=== PATIENT | female | born 1955 | race Caucasian/White ===

== ENCOUNTER 2022-09-22 13:05 | Outpatient (RCR) | payer MEDICARE, MEDICAID, OTHER, SELFPAY ==
--- NOTE | ~2022-09-22 | XR_ITS ---
EXAMINATION: XR ELBOW, LEFT CLINICAL INFORMATION: Nonhealing wound COMPARISON: None TECHNIQUE: AP, lateral, and oblique views of the left elbow. FINDINGS: Soft tissue swelling about the elbow joint. No definite fracture or malalignment.. There is possible soft tissue gas within the joint. XR/XR elbow LT min 3V IMPRESSION: Soft tissue swelling about the elbow joint. Possible soft tissue gas within the joint. Recommend further evaluation with CT or MR. No definite fracture.
== END 2023-01-05 16:00 | disposition home or self-care (01) ==
LOC: HO.WCC 13:05
PROVIDERS: PCP Family Medicine; Referring Provider Orthopaedic Surgery; Visit Provider Physician Assistant
DX: E11.622 Type 2 diabetes mellitus with other skin ulcer (principal); L89.029 Pressure ulcer of left elbow, unspecified stage; M35.3 Polymyalgia rheumatica; N28.9 Disorder of kidney and ureter, unspecified; I11.0 Hypertensive heart disease with heart failure; I50.9 Heart failure, unspecified; F17.210 Nicotine dependence, cigarettes, uncomplicated
CPT/HCPCS: 11042; 73080; 87070; 87073; 87205; 97597; 99212; 99213

== ENCOUNTER 2022-11-04 14:21 | Outpatient (REF) | payer MEDICARE, MEDICAID, SELFPAY | END 2022-11-04 14:22 | disposition home or self-care (01) | LOC: HO.MRI 14:21 | PROVIDERS: PCP Family Medicine; Visit Provider Physician Assistant | DX: Z13.89 Encounter for screening for other disorder (principal) ==

== ENCOUNTER → 2022-12-17 13:51 | Outpatient (BNVA) | payer MEDICARE, MEDICAID, SELFPAY | PROVIDERS: PCP Family Medicine; Visit Provider Internal Medicine | DX: M86.9 Osteomyelitis, unspecified (principal) | CPT/HCPCS: 99202 ==

== ENCOUNTER 2023-01-08 12:13 | Outpatient (REF) | payer MEDICARE, SELFPAY ==
[2023-01-08 13:25] LABS: Estimated Glomerular Filt Rate 33
== END 2023-01-08 12:14 | disposition home or self-care (01) ==
LOC: HO.LAB 12:13
PROVIDERS: PCP Family Medicine; Visit Provider Internal Medicine
DX: M86.9 Osteomyelitis, unspecified (principal)
CPT/HCPCS: 36415; 82565

== ENCOUNTER 2023-01-27 06:51 | Day surgery (SDC) | payer MEDICARE, SELFPAY ==
--- NOTE | ~2023-01-27 | IR_ITS ---
PROCEDURE: IR INSERTION OF TUNNEL CATHETER CLINICAL INFORMATION: Osteomyelitis with need for long-term antibiotics. COMPARISON: None available. TECHNIQUE: All elements of maximal sterile barrier technique followed including use of cap, mask, sterile gown, sterile gloves, a sterile full body drape and hand hygiene. Also followed skin preparation with 2% chlorhexidine for cutaneous antisepsis, and sterile ultrasound preparation with sterile gel and probe cover when applicable. Medications for conscious sedation: The patient received intravenous conscious sedation under my direct supervision. A registered nurse monitored the patient and the patient's vital signs throughout the procedure. The total sedation was 15 minutes utilizing Versed and fentanyl with good effect. FINDINGS: Patient was placed supine on the fluoroscopy table in the right neck/chest was sterilely prepped and draped. Ultrasound of the right neck demonstrates a patent and compressible right internal jugular vein. Following administration of 1% lidocaine for local anesthesia, the right internal jugular vein was accessed with a 21-gauge micropuncture needle under continuous ultrasound guidance, permanent recordings. The needle was exchanged for a peel-away sheath over a 0.018 guidewire. A 5 Albanian Borja catheter was then tunneled from a right infraclavicular site to the right IJ access site. The catheter was cut to length (25 cm) and was inserted through the peel-away sheath. A fluoroscopic image was saved demonstrating the tip of the catheter to be at the cavoatrial junction. The catheter flushed and aspirated easily and was terminally flushed with heparin. The IJ puncture site was closed with skin glue. A sterile dressing was applied. Patient tolerated procedure well with no immediate complications. IR/IR cvc insert central tunnel IMPRESSION: Placement of 5 Albanian single lumen Borja catheter via a right internal jugular venous approach. Catheter tip is at the cavoatrial junction. Catheter is ready for immediate use.
--- NOTE | ~2023-01-27 | IR_ITS ---
PROCEDURE: IR INSERTION OF TUNNEL CATHETER CLINICAL INFORMATION: Osteomyelitis with need for long-term antibiotics. COMPARISON: None available. TECHNIQUE: All elements of maximal sterile barrier technique followed including use of cap, mask, sterile gown, sterile gloves, a sterile full body drape and hand hygiene. Also followed skin preparation with 2% chlorhexidine for cutaneous antisepsis, and sterile ultrasound preparation with sterile gel and probe cover when applicable. Medications for conscious sedation: The patient received intravenous conscious sedation under my direct supervision. A registered nurse monitored the patient and the patient's vital signs throughout the procedure. The total sedation was 15 minutes utilizing Versed and fentanyl with good effect. FINDINGS: Patient was placed supine on the fluoroscopy table in the right neck/chest was sterilely prepped and draped. Ultrasound of the right neck demonstrates a patent and compressible right internal jugular vein. Following administration of 1% lidocaine for local anesthesia, the right internal jugular vein was accessed with a 21-gauge micropuncture needle under continuous ultrasound guidance, permanent recordings. The needle was exchanged for a peel-away sheath over a 0.018 guidewire. A 5 Turkmen Borja catheter was then tunneled from a right infraclavicular site to the right IJ access site. The catheter was cut to length (25 cm) and was inserted through the peel-away sheath. A fluoroscopic image was saved demonstrating the tip of the catheter to be at the cavoatrial junction. The catheter flushed and aspirated easily and was terminally flushed with heparin. The IJ puncture site was closed with skin glue. A sterile dressing was applied. Patient tolerated procedure well with no immediate complications. IR/IR us guide venous access IMPRESSION: Placement of 5 Turkmen single lumen Borja catheter via a right internal jugular venous approach. Catheter tip is at the cavoatrial junction. Catheter is ready for immediate use.
[2023-01-27 07:20] LABS: Glucose, Whole Blood 187 mg/dL (60-115)
[2023-01-27 07:25] VITALS: BMI 28.5
[2023-01-27 07:36] LABS: MANUAL DIFF FLAG NO
[2023-01-27 07:39] LABS: Basophils Absolute Auto 0.1 X10*3/uL (0.0-0.2); Basophils Percent Auto 0.3 % (0-2); Eosinophils Percent Auto 0.1 % (0-4); Hematocrit 48.8 % (37.0-47.0); Hemoglobin 16.6 g/dl (12.0-16.0); Imm Gran Abs Auto 0.31 X10*3/uL (0.00-0.03); Imm Gran Pct Auto 1.5 % (0.0-0.4); Lymphocytes Absolute Auto 2.6 X10*3/uL (1.2-4.9); Lymphocytes Percent Auto 12.7 % (20-40); Mean Corpuscular Hemoglobin 28.2 pg (27.0-33.0); Mean Corpuscular Volume 82.9 fL (80.0-98.0); Mean Platelet Volume 9.2 fL (9.4-12.3); Monocytes Absolute Auto 1.4 X10*3/uL (0.1-1.2); Monocytes Percent Auto 6.8 % (2-11); Neutrophils Percent Auto 78.6 % (45-73); Platelet Count 308 X10*3/uL (160-400); Red Blood Count 5.89 X10*6/uL (4.20-5.50); Red Cell Distribution Width 14.8 % (11.0-16.0); White Blood Count 20.3 X10*3/uL (4.8-10.8)
[2023-01-27 07:44] LABS: INTERNATIONAL NORM RATIO 0.9 (0.9-1.1)
[2023-01-27 07:47] LABS: Partial Thromboplastin Time 26.6 SEC (26.0-36.4)
[2023-01-27 07:56] LABS: Anion Gap 18 (12-20); Blood Urea Nitrogen 33 mg/dL (9-16); Carbon Dioxide 27 mmol/L (22-29); Chloride 89 mmol/L (96-108); Creatinine Clr Calc Pharmacy 30.3; Estimated Glomerular Filt Rate 32; Sodium 131 mmol/L (135-145)
[2023-01-27 10:10] VITALS: BP 159/93; PULSE 78; RESP 16; TEMP 36.8; O2SAT 91
[2023-01-27 10:25] VITALS: BP 157/103; PULSE 79; RESP 18; O2SAT 90
[2023-01-27 10:40] VITALS: BP 189/112; PULSE 80; RESP 18; O2SAT 92
[2023-01-27 10:55] VITALS: BP 181/94; PULSE 86; RESP 18; O2SAT 93
[2023-01-27 11:10] VITALS: BP 169/93; PULSE 82; RESP 18; TEMP 37; O2SAT 93
[2023-01-27 11:25] VITALS: BP 170/83; PULSE 82; RESP 18; O2SAT 94
== END 2023-01-27 11:20 | disposition home or self-care (01) ==
PROVIDERS: Radiology Diagnostic Radiology; PCP Family Medicine; Visit Provider Radiology Diagnostic Radiology
DX: M86.9 Osteomyelitis, unspecified (principal)
CPT/HCPCS: 36415; 36558; 76937; 80051; 82565; 82947; 84520; 85025; 85610; 85730; 99152; C1751; C1769; J0690; J1335; J1642; J2250; J2405; J3010; Q9967

== ENCOUNTER → 2023-01-27 08:49 | Outpatient (BNV) | payer MEDICARE, SELFPAY | PROVIDERS: PCP Family Medicine; Visit Provider Student in an Organized Health Care Education/Training Program | DX: M86.9 Osteomyelitis, unspecified (principal) | CPT/HCPCS: 36558; 76937 ==

== ENCOUNTER 2023-01-27 11:23 | Outpatient (REF) | payer MEDICARE, SELFPAY | END 2023-01-27 11:24 | disposition home or self-care (01) | LOC: HO.MDS 11:23 | PROVIDERS: Visit Provider Internal Medicine | DX: M86.9 Osteomyelitis, unspecified (principal) | CPT/HCPCS: 96365; J1335 ==

== ENCOUNTER 2023-01-28 14:51 | Outpatient (REF) | payer MEDICARE, OTHER, SELFPAY | END 2023-01-28 14:52 | disposition home or self-care (01) | LOC: HO.MDS 14:51 | PROVIDERS: PCP Family Medicine; Visit Provider Internal Medicine | DX: M86.9 Osteomyelitis, unspecified (principal) | CPT/HCPCS: 96365; J1335 ==

== ENCOUNTER 2023-01-29 11:06 | Outpatient (RCR) | payer MEDICARE, OTHER, SELFPAY | END 2023-03-02 16:00 | disposition home or self-care (01) | LOC: HO.WCC 11:06 | PROVIDERS: PCP Family Medicine; Visit Provider Surgery | DX: L98.492 Non-pressure chronic ulcer of skin of other sites with fat layer exposed (principal); S21.112A Laceration without foreign body of left front wall of thorax without penetration into thoracic cavity, initial encounter; M86.032 Acute hematogenous osteomyelitis, left radius and ulna; M35.3 Polymyalgia rheumatica; Z79.4 Long term (current) use of insulin; Z79.85 Long-term (current) use of injectable non-insulin antidiabetic drugs; Z79.82 Long term (current) use of aspirin; Z79.891 Long term (current) use of opiate analgesic; Z79.2 Long term (current) use of antibiotics; Z79.52 Long term (current) use of systemic steroids | CPT/HCPCS: 97597 ==

== ENCOUNTER 2023-01-29 12:04 | Outpatient (REF) | payer MEDICARE, MEDICAID, SELFPAY | END 2023-01-29 12:05 | disposition home or self-care (01) | LOC: HO.MDS 12:04 | PROVIDERS: Visit Provider Internal Medicine | DX: M86.9 Osteomyelitis, unspecified (principal) | CPT/HCPCS: 96365; J1335 ==

== ENCOUNTER 2023-01-30 10:27 | Inpatient (IN) | payer MEDICARE, OTHER, SELFPAY ==
--- NOTE | ~2023-01-30 | XR_ITS ---
EXAMINATION: XR ELBOW, LEFT CLINICAL INFORMATION: Left elbow pain following trauma. COMPARISON: 09/25/2022 TECHNIQUE: AP, lateral, and oblique views of the left elbow. FINDINGS: The bones are osteopenic. Alignment is anatomic. Joint spaces are maintained. No displaced fracture seen. Small joint effusion. XR/XR elbow LT min 3V IMPRESSION: Small joint effusion.
--- NOTE | ~2023-01-30 | XR_ITS ---
EXAMINATION: XR CHEST CLINICAL INFORMATION: Weakness. Leukocytosis. COMPARISON: None available. TECHNIQUE: Frontal view of the chest was obtained. FINDINGS: Low lung volumes. No focal consolidation. No pleural effusion. Cardiac silhouette is within normal. Right central venous catheter tip projects near the cavoatrial junction. Surgical clips project over the right upper quadrant. XR/XR chest 1V IMPRESSION: No acute abnormality.
--- NOTE | ~2023-01-30 | IR_ITS ---
EXAMINATION: XA IR CVC removal tunneled catheter without port or pump CLINICAL INFORMATION: Central line and IV antibiotics no longer needed COMPARISON: None. TECHNIQUE/FINDINGS: The existing 5 [place] right internal jugular Proline catheter was removed. Manual pressure was held at the skin exit site and hemostasis was achieved. Dry sterile dressing was applied. No imaging obtained. No specimen was sent. IR/IR cvc remov tunnel wo prt/coding clerk IMPRESSION: Right internal jugular 5 [place] Proline catheter removal.
[2023-01-30 10:31] VITALS: BP 152/82; PULSE 56; RESP 22; TEMP 36.7; O2SAT 97; BMI 28.0
--- NOTE | 2023-01-30 12:23 | ED_ITS ---
HPI - Weakness General Chief complaint: Weakness Stated complaint: weakness Time Seen by Provider: 01/30/23 12:23 Source: patient, family and old records reviewed Mode of arrival: ambulatory Limitations: no limitations History of Present Illness HPI Narrative: 67 yo female with history of left olecranon osteomyelitis started on IV ertapenem 01/26, HTN, DM, PMR on chronic prednisone who presents to the ER for evaluation of worsening generalized weakness this week. Her and her report that since she started IV antibiotics this week she has been getting more and more weak. She can no longer walk and he needs to pick her up and put her in the wheelchair to get to the infusion appointment today. She also reports all over body aches and pains. She has been having LUQ pain but no N/V/D. She has had decreased PO intake as well. She reports SOB as well. MD Complaint: generalized weakness Onset (ago): week(s) Duration: constant and progressively worsening Location: generalized Migration: none Severity: severe Relieving factors: none Exacerbating factors: none Associated symptoms: loss of appetite, myalgias and shortness of breath Related Data Home Medications Medication Instructions Recorded Confirmed carvedilol 25 mg tablet 25 mg PO BID 12/17/22 cephalexin 250 mg capsule 250 mg PO TID 12/17/22 gabapentin 100 mg capsule 100 mg PO DAILY 12/17/22 insulin NPH isoph U-100 human 100 25 unit subcut BID 12/17/22 unit/mL (3 mL) subcutaneous pen (Humulin N NPH U-100 Insulin KwikPen) insulin degludec 100 unit/mL (3 100 unit subcut DAILY 12/17/22 mL) subcutaneous pen (Tresiba FlexTouch U-100 insulin) insulin lispro 100 unit/mL 1 sliding scale dose subcut 12/17/22 subcutaneous cartridge (Humalog USEASDIRECTD U-100 Insulin) liraglutide 0.6 mg/0.1 mL (18 mg/3 1.2 mg subcut DAILY 12/17/22 mL) subcutaneous pen injector (Victoza 3-Delmer) magnesium hydroxide 400 mg/5 mL 400 mg PO DAILY PRN 12/17/22 oral suspension (Dulcolax (magnesium hydroxide)) potassium citrate 10 mEq (1,080 10 meq PO TID 12/17/22 mg) tablet,extended release spironolactone 25 mg tablet 25 mg PO DAILY 12/17/22 aspirin 81 mg tablet,delayed 81 mg PO DAILY 01/27/23 release zolpidem 5 mg tablet 5 mg PO BEDTIME PRN Insomnia 01/27/23 Previous Rx's Medication Instructions Recorded ertapenem 1 gram solution for 1 g IV Q24H 42 days #42 ea 12/31/22 injection Allergies Allergy/AdvReac Type Severity Reaction Status Date / Time lisinopril Allergy Severe Cough Verified 01/27/23 07:40 morphine AdvReac Severe Hallucinati Verified 01/27/23 07:41 ons Review of Systems Review of Systems: Yes all other systems are reviewed and are negative [facility] Past Medical History Medical History Artery occlusion Cataract Diabetes Kidney disease Osteomyelitis Polymazia Smoker Surgical History (Updated 01/27/23 @ 07:[address] Rizo RN) H/O section H/O: hysterectomy History of total knee replacement History of urostomy Hx of cholecystectomy Social History Social History Patient Tobacco Use Status: Current everyday Tobacco user Tobacco use type: Cigarette Cigarettes Per Day: 5 Smoked in Last 30 Days: Yes Use of substances other than those prescribed or required for medical reasons: No Advance Directives: Yes Advance Directives Information Provided: Yes Advance Directives on File: No Physical Exam Vital Signs: Vital Signs: Last Vital Signs Temp 97.8 F 01/30/23 15:16 Pulse 78 01/30/23 15:16 Resp 20 01/30/23 15:16 BP 196/88 H 01/30/23 15:16 Pulse Ox 95 01/30/23 15:16 O2 Del Method Room Air 01/30/23 15:16 BMI result Body Mass Index 28.0 Appearance: Alert. Oriented X3. No acute distress. Head: normocephalic, atraumatic. Eyes: Pupils equal, round and reactive to light. ENT: Pharynx normal. No tonsillar swelling or exudate. Neck: Normal inspection. Neck supple. CVS: Normal heart rate and rhythm. Pulses normal. Respiratory: No respiratory distress. Breath sounds normal. Abdomen: Soft with mild LUQ tenderness without rebound or guarding. +BS x4 Skin: Skin warm and dry. Normal skin color. Normal skin turgor. No rashes. Extremities: No lower extremity edema. Left elbow with a superficial skin tear, mild erythema. no significant swelling or tenderness. normal ROM. no drainage Neuro/psych: Oriented X 3. Significant weakness LE, barely able to lift the le gs off of the bed but able to fully extend against gravity when sitting on the edge of the bed. Absent DTRs in the LE. No sensory deficit. Equal and symmetrical strength in the UE. CN II-XII intact. Normal speech and cognition. Gait not tested due to weakness Medications Administered Discontinued Medications Generic Name Dose Route Start Last Admin Trade Name Freq PRN Reason Stop Dose Admin Ertapenem 1 gm/ Sodium 50 mls @ 100 mls/hr 01/30/23 14:15 01/30/23 15:42 Chloride IV 01/30/23 14:44 100 mls/hr ONCE ONE Administration Sodium Chloride 1,000 mls @ 999 mls/hr 01/30/23 14:30 01/30/23 15:31 Ns IVCONT 01/30/23 15:30 999 mls/hr .Q1H1M CHANDRIKA Administration Medical Decision Making Medical Decision Making MDM Narrative: 67 yo female with history of left olecranon osteomyelitis started on IV e rtapenem 01/26, HTN, DM, PMR on chronic prednisone who presents to the ER for evaluation of worsening generalized weakness this week after starting IV ertapenem. unable to ambulate today. Hypertensive but afebrile on arrival to the ER. Outpatient labs from earlier this week showed leukocytosis of 20,000 and sodium 131. Repeat labs today show sodium of 130 and leukocytosis of 18,600. She had some minor trauma of the elbow so repeat x-ray was performed showing a small effusion. No evidence of abscess formation on examination. She is significantly weak, unable to ambulate. She has absent deep tendon reflexes in the lower extremities. Dr. Johns evaluated patient at the bedside. Recommending admission to the hospital for further evaluation and treatment. Patient agreeable with plan. Case d/w Dr. Robbins who will admit the patient for further evaluation and workup. Differential Diagnosis Differential Diagnoses: The differential diagnosis associated with the presentation includes generalized weakness due to acute infection, myositis, generalized deconditioning, guillain barre syndrome Admission/Observation Consideration of admission/observation: Escalation of care including admission/observation considered significant weakness, leukocytosis, hyponatremia Consult Healthcare Provider Management of the patient was discussed with: Hospitalist and [employer] Dr. Charity ERNST about the patient Dr. Robbins from medicine, case discussed Lab Data MDM Lab Attestation statement: I reviewed the patient's lab results. leukocytosis, hyponatremia 01/30/23 13:39 01/30/23 13:39 Labs: Lab Results 01/30/23 01/30/23 01/30/23 Range/Units 13:39 13:39 13:39 WBC 18.6 H (4.8-10.8) X10*3/uL RBC 5.29 (4.20-5.50) X10*6/uL Hgb 15.2 (12.0-16.0) g/dl Hct 44.4 (37.0-47.0) % MCV 83.9 (80.0-98.0) fL MCH 28.7 (27.0-33.0) pg MCHC 34.2 (31.0-35.0) g/dl RDW 15.4 (11.0-16.0) % Plt Count 247 (160-400) X10*3/uL MPV 9.3 L (9.4-12.3) fL Immature Gran % (Auto) 1.1 H (0.0-0.4) % Neut % (Auto) 91.3 H (45-73) % Lymph % (Auto) 3.7 L (20-40) % [place] % (Auto) 3.5 (2-11) % Eos % (Auto) 0.2 (0-4) % Baso % (Auto) 0.2 (0-2) % Lymph # (Auto) 0.7 L (1.2-4.9) X10*3/uL [place] # (Auto) 0.7 (0.1-1.2) X10*3/uL Eos # (Auto) 0.0 (0.0-0.4) X10*3/uL Baso # (Auto) 0.0 (0.0-0.2) X10*3/uL Abs Immat Gran (auto) 0.21 H (0.00-0.03) X10*3/uL Absolute Neuts (auto) 17.0 H (2.0-8.3) x10*3/uL Absolute Nucleated RBC 0.000 (0.0-0.012) X10*3/uL Nucleated RBC % (auto) 0.0 (0.0-0.2) /100WBC Smear Tech's Comments VERIFIED ESR 7 (0-20) MM/HR Sodium 130 L (135-145) mmol/L Potassium 4.0 D (3.3-5.1) mmol/L Chloride 90 L (96-108) mmol/L Carbon Dioxide 30 H (22-29) mmol/L Anion Gap 14 (12-20) BUN 42 H (9-16) mg/dL Creatinine 1.85 H (0.5-1.4) mg/dL Estim Creat Clear Calc 26.2 Estimated GFR 27 Random Glucose 317 H (60-115) mg/dL Lactic Acid (0.5-2.0) mmol/L Calcium 11.4 H (8.4-10.2) mg/dL Magnesium 2.4 (1.6-2.6) mg/dL Total Bilirubin 0.5 (0.0-1.0) mg/dL Direct Bilirubin 0.1 (0.0-0.5) mg/dL AST 15 (5-31) U/L ALT 13 (0-31) U/L Alkaline Phosphatase 99 (39-117) U/L Total Creatine Kinase (26-140) U/L Troponin I High Sens (<3.5-17.0) ng/L C-Reactive Protein 1.05 H (< or = 0.50) mg/dL Total Protein 5.9 L (6.5-8.0) g/dL Albumin 3.4 L (3.5-5.0) g/dL 01/30/23 01/30/23 01/30/23 Range/Units 13:39 13:39 13:39 WBC (4.8-10.8) X10*3/uL RBC (4.20-5.50) X10*6/uL Hgb (12.0-16.0) g/dl Hct (37.0-47.0) % MCV (80.0-98.0) fL MCH (27.0-33.0) pg MCHC (31.0-35.0) g/dl RDW (11.0-16.0) % Plt Count (160-400) X10*3/uL MPV (9.4-12.3) fL Immature Gran % (Auto) (0.0-0.4) % Neut % (Auto) (45-73) % Lymph % (Auto) (20-40) % [place] % (Auto) (2-11) % Eos % (Auto) (0-4) % Baso % (Auto) (0-2) % Lymph # (Auto) (1.2-4.9) X10*3/uL [place] # (Auto) (0.1-1.2) X10*3/uL Eos # (Auto) (0.0-0.4) X10*3/uL Baso # (Auto) (0.0-0.2) X10*3/uL Abs Immat Gran (auto) (0.00-0.03) X10*3/uL Absolute Neuts (auto) (2.0-8.3) x10*3/uL Absolute Nucleated RBC (0.0-0.012) X10*3/uL Nucleated RBC % (auto) (0.0-0.2) /100WBC Smear Tech's Comments ESR (0-20) MM/HR Sodium (135-145) mmol/L Potassium (3.3-5.1) mmol/L Chloride (96-108) mmol/L Carbon Dioxide (22-29) mmol/L Anion Gap (12-20) BUN (9-16) mg/dL Creatinine (0.5-1.4) mg/dL Estim Creat Clear Calc Estimated GFR Random Glucose (60-115) mg/dL Lactic Acid 1.9 (0.5-2.0) mmol/L Calcium (8.4-10.2) mg/dL Magnesium (1.6-2.6) mg/dL Total Bilirubin (0.0-1.0) mg/dL Direct Bilirubin (0.0-0.5) mg/dL AST (5-31) U/L ALT (0-31) U/L Alkaline Phosphatase (39-117) U/L Total Creatine Kinase 13 L (26-140) U/L Troponin I High Sens 26.7 H (<3.5-17.0) ng/L C-Reactive Protein (< or = 0.50) mg/dL Total Protein (6.5-8.0) g/dL Albumin (3.5-5.0) g/dL Independent Interpretation I performed an independent interpretation of an: Plain X-Ray Interpretation: xr chest without infiltrate, agrees radiologist read, x-ray of the elbow with small joint effusion, grade radiologist read Radiology Impression Discussion of test interpretation with radiology: I have reviewed the radiol ogist's reading. Radiologist Impression: XR/XR elbow LT min 3V IMPRESSION: Small joint effusion. ?XR/XR chest 1V IMPRESSION: No acute abnormality. Independent Historian Clinical information obtained from an independent historian. History obtained from or confirmed by: Other (Family member at the bedside) External Record Review External record reviewed: Office record, Outpatient record, Prior outpatient labs and Prior outpatient radiology Tests considered The following testing was considered but not selected: MRI of the brain Prescription Management I considered prescription management with: Pain Medication and Antibiotic Chronic Conditions Patient?s care impacted by: Hypertension and Other (PMR up on a have that 1 divided) Critical Care Time Critical Care Time Critical Care Time: Yes Total Critical Care Time: 35 Attestation: I have personally provided critical care time exclusive of time spent on separately billable procedures. Time includes review of lab data, radiology results, discussion with consultants, and monitoring for potential decompensation. Intervention performed as documented. Discharge Plan Discharge Clinical Impression: Osteomyelitis, Hyponatremia, Generalized weakness Patient Disposition: Admitted As Inpatient
--- NOTE | 2023-01-30 12:26 | ECG_ITS ---
Test Reason : WEAKNESS Blood Pressure : / mmHG Vent. Rate : 072 BPM Atrial Rate : 072 BPM P-R Int : 142 ms QRS Dur : 088 ms QT Int : 400 ms P-R-T Axes : 017 -11 039 degrees QTc Int : 438 ms Normal sinus rhythm Possible Left atrial enlargement Left ventricular hypertrophy ( R in aVL , Marcial product ) Nonspecific ST and T wave abnormality Abnormal ECG No previous ECGs available Referred By: Alisson Kramer Electronically Signed By:JAMAAL FINK MD
[2023-01-30 12:40] VITALS: BP 192/82; PULSE 76; RESP 20; TEMP 36.6; O2SAT 94
[2023-01-30 13:47] LABS: Basophils Percent Auto 0.2 % (0-2); Eosinophils Percent Auto 0.2 % (0-4); Hematocrit 44.4 % (37.0-47.0); Hemoglobin 15.2 g/dl (12.0-16.0); Imm Gran Abs Auto 0.21 X10*3/uL (0.00-0.03); Imm Gran Pct Auto 1.1 % (0.0-0.4); Lymphocytes Absolute Auto 0.7 X10*3/uL (1.2-4.9); Lymphocytes Percent Auto 3.7 % (20-40); MANUAL DIFF FLAG SCAN; Mean Corpuscular HGB Conc 34.2 g/dl (31.0-35.0); Mean Corpuscular Hemoglobin 28.7 pg (27.0-33.0); Mean Corpuscular Volume 83.9 fL (80.0-98.0); Mean Platelet Volume 9.3 fL (9.4-12.3); Monocytes Absolute Auto 0.7 X10*3/uL (0.1-1.2); Monocytes Percent Auto 3.5 % (2-11); Neutrophils Percent Auto 91.3 % (45-73); Platelet Count 247 X10*3/uL (160-400); Red Blood Count 5.29 X10*6/uL (4.20-5.50); Red Cell Distribution Width 15.4 % (11.0-16.0); SCAN SMEAR FLAG 1; White Blood Count 18.6 X10*3/uL (4.8-10.8)
[2023-01-30 14:07] LABS: Alanine Aminotransferase 13 U/L (0-31); Albumin Level 3.4 g/dL (3.5-5.0); Alkaline Phosphatase 99 U/L (39-117); Anion Gap 14 (12-20); Aspartate Amino Transferase 15 U/L (5-31); Bilirubin Direct 0.1 mg/dL (0.0-0.5); Bilirubin Total 0.5 mg/dL (0.0-1.0); Blood Urea Nitrogen 42 mg/dL (9-16); C Reactive Protein 1.05 mg/dL (< or = 0.50); Calcium 11.4 mg/dL (8.4-10.2); Carbon Dioxide 30 mmol/L (22-29); Chloride 90 mmol/L (96-108); Creatinine Clr Calc Pharmacy 26.2; Estimated Glomerular Filt Rate 27; Glucose Random 317 mg/dL (60-115); Magnesium 2.4 mg/dL (1.6-2.6); Sodium 130 mmol/L (135-145); Total Protein 5.9 g/dL (6.5-8.0)
[2023-01-30 14:12] LABS: Troponin-I High Sensitivity 26.7 ng/L (<3.5-17.0)
[2023-01-30 14:13] LABS: Lactic Acid 1.9 mmol/L (0.5-2.0)
[2023-01-30 14:22] LABS: SLIDE REVIEW VERIFIED
[2023-01-30 14:31] LABS: Erythrocyte Sedimentation Rate 7 MM/HR (0-20)
[2023-01-30 15:16] VITALS: BP 196/88; PULSE 78; RESP 20; TEMP 36.6; O2SAT 95
[2023-01-30] MEDS: 0.9 % Sodium Chloride 1,000 ML 999 ML IVCONT (15:31)
[2023-01-30] MEDS: Ertapenem Sodium 1 GM in 0.9 % Sodium Chloride 50 ML IV (15:42)
--- NOTE | 2023-01-30 16:24 | PHA.MEDREC ---
Pharmacy Consult ? Medication Reconciliation Pharmacy has completed the medication reconciliation. Spoke to patient to confirm meds. Per patient, patient does not take aspirin and takes 19mg of prednisone daily. Patinet takes claritin-D daily and uses Humalog sliding scale. Patient also uses 20 units tresiba.
[2023-01-30 16:37] LABS: B Type Natriuretic Peptide 195 pg/mL (<100)
--- NOTE | 2023-01-30 16:44 | PM.IMHP ---
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 Patient was started on IV ertapenem last week for osteomyelitis of left elbow. Patient and state that since then she has developed lower leg weakness that has progressively worsened with each day. Prior to that patient was able to slowly ambulate with a walker on her own, but has not been able to ambulate for the past few days. Her has had to carry her to her wheelchair. Patient apparently is able to toilet herself at home, but today required a 2 assist. Patient also complain of pain in her elbow and shortness of breath. Patient denies any numbness and tingling in her legs or upper extremities, but has been experiencing some cramping in her legs. Also has been experiencing some left upper quadrant pain for the past 6+ months. Has had workup done elsewhere that has been unremarkable. Patient has a history of heart failure with the last exacerbation in May of 2022. Patient denies chest pain/pressure, palpitations. No increase in lower leg edema. In the ED patient was afebrile, tachypneic up to 22, and hypertensive up to 196/88. Labs were significant for leukocytosis of 18.6, sodium of 130, BUN 42, creatinine 1.85, random glucose of 317, troponin 26.7, BNP 195. CXR showed no acute abnormality. Left elbox x-ray showed small joint effusion. EKG demonstrated normal sinus rhythm with no evidene of ST elevations or depressions. Pt was treated with oxycodone, ertapenem, IVF. Pt will be admitted to the hospital for treatment of IVA, Review of Systems Review of Systems: Lower leg weakness Left elbow pain Chronic LUQ pain SOB Denies numbness or tingling in extremities No chest pain/pressure, palpitations Denies fever, chills, N/V, diarrhea Yes all other systems are reviewed and are negative [facility] Medical History Artery occlusion Cataract Diabetes Kidney disease Osteomyelitis Polymazia Smoker Surgical History H/O section H/O: hysterectomy History of total knee replacement History of urostomy Hx of cholecystectomy Social History Patient Tobacco Use Status: Current everyday Tobacco user Tobacco use type: Cigarette Cigarettes Per Day: 5 Smoked in Last 30 Days: Yes Use of substances other than those prescribed or required for medical reasons: No Advance Directives: Yes Advance Directives Information Provided: Yes Advance Directives on File: No Meds Allergies Allergy/AdvReac Type Severity Reaction Status Date / Time lisinopril Allergy Severe Cough Verified 01/27/23 07:40 morphine AdvReac Severe Hallucinati Verified 01/27/23 07:41 ons Active Medications: Current Medications Pharmacy Consult (Consult Rx Perform Med Rec) 1 each MISCELLANE ONCE PRN PRN Reason: Consult order Home Medications Medication Instructions Recorded Confirmed Last Taken Type carvedilol 25 mg tablet 25 mg PO BIDWM 12/17/22 01/30/23 01/29/23 History gabapentin 100 mg capsule 200 mg PO TID PRN Pain 12/17/22 01/30/23 Unknown History insulin degludec 100 unit/mL (3 20 unit subcut DAILY 12/17/22 01/30/23 01/29/23 History mL) subcutaneous pen (Tresiba FlexTouch U-100 insulin) insulin lispro 100 unit/mL 1 sliding scale dose subcut TIDAC 12/17/22 01/30/23 01/29/23 History subcutaneous cartridge (Humalog U-100 Insulin) liraglutide 0.6 mg/0.1 mL (18 mg/3 1.8 mg subcut DAILY 12/17/22 01/30/23 01/29/23 History mL) subcutaneous pen injector (Victoza 3-Delmer) magnesium hydroxide 400 mg/5 mL 400 mg PO DAILY 12/17/22 01/30/23 01/29/23 History oral suspension (Dulcolax (magnesium hydroxide)) spironolactone 25 mg tablet 25 mg PO BID 12/17/22 01/30/23 01/29/23 History acetaminophen 325 mg tablet 650 mg PO Q6H PRN Pain 01/30/23 01/30/23 Unknown History (Tylenol) azelastine 137 mcg (0.1 %) nasal 1 spray intranasal BID 01/30/23 01/30/23 01/29/23 History spray aerosol clotrimazole 1 % topical cream 1 appl topical BID 01/30/23 01/30/23 01/29/23 History ezetimibe 10 mg tablet 10 mg PO DAILY 01/30/23 01/30/23 01/29/23 History famotidine 40 mg tablet 40 mg PO BEDTIME 01/30/23 01/30/23 01/29/23 History loratadine-pseudoephedrine ER 10 1 tab PO DAILY 01/30/23 01/30/23 01/29/23 History mg-240 mg tablet,extended [id number] (Claritin-D 24 Hour) prednisone 1 mg tablet 4 mg PO DAILY 01/30/23 01/30/23 01/30/23 History prednisone 5 mg tablet 15 mg PO DAILY 01/30/23 01/30/23 01/30/23 History torsemide 20 mg tablet 40 mg PO DAILY@1200 01/30/23 01/30/23 01/29/23 History torsemide 20 mg tablet 60 mg PO DAILY@0900 01/30/23 01/30/23 01/29/23 History Physical Exam Vital Signs and Narrative: Vital Signs: Last Vital Signs Temp 97.8 F 01/30/23 15:16 Pulse 78 01/30/23 15:16 Resp 20 01/30/23 15:16 BP 196/88 H 01/30/23 15:16 Pulse Ox 95 01/30/23 15:16 O2 Del Method Room Air 01/30/23 15:16 BMI result Body Mass Index 28.0 Constitutional: Alert, frail-looking, in no acute distress. Mental Status: Oriented to person, place and time. Eyes: Pupils are equal, round, and reactive to light. Ear, Nose, and Throat: Oropharynx clear, mucous membranes moist. Ears and nose without deformities. Trachea midline. Respiratory: Clear to auscultation bilaterally. No wheezing, rales, or rhonchi. Cardiovascular: S1, S2 regular. No murmurs, rubs, or gallops. Gastrointestinal: Abdomen soft, non-distended, with LUQ tenderness. Normal bowel sounds. Neurologic: Cranial nerves II-XII are grossly intact bilaterally. Moves all extremities spontaneously. Sensation to light touch intact of upper and lower extremities. 3/5 strength of upper extremities bilaterally. 1/5 strength of lower extremities bilaterally. Skin: Numerous diffuse bruises of upper and lower extremities. Left elbow wound as pictured below. Musculoskeletal: No cyanosis or clubbing. Extremities: No edema. Psychiatric: Normal mood and affect. Results Labs 01/30/23 13:39 01/30/23 13:39 Labs: Laboratory Results - last 24 hr 01/30/23 01/30/23 01/30/23 13:39 13:39 13:39 MCV 83.9 MCH 28.7 MCHC 34.2 RDW 15.4 Plt Count 247 MPV 9.3 L Immature Gran % (Auto) 1.1 H Neut % (Auto) 91.3 H Lymph % (Auto) 3.7 L [place] % (Auto) 3.5 Eos % (Auto) 0.2 Baso % (Auto) 0.2 Lymph # (Auto) 0.7 L [place] # (Auto) 0.7 Eos # (Auto) 0.0 Baso # (Auto) 0.0 Abs Immat Gran (auto) 0.21 H Absolute Neuts (auto) 17.0 H Absolute Nucleated RBC 0.000 Nucleated RBC % (auto) 0.0 Smear Tech's Comments VERIFIED ESR 7 Anion Gap 14 Estim Creat Clear Calc 26.2 Estimated GFR 27 Random Glucose 317 H Lactic Acid Calcium 11.4 H Magnesium 2.4 Total Bilirubin 0.5 Direct Bilirubin 0.1 AST 15 ALT 13 Alkaline Phosphatase 99 Total Creatine Kinase Troponin I High Sens C-Reactive Protein 1.05 H B-Natriuretic Peptide Total Protein 5.9 L Albumin 3.4 L 01/30/23 01/30/23 01/30/23 13:39 13:39 13:39 MCV MCH MCHC RDW Plt Count MPV Immature Gran % (Auto) Neut % (Auto) Lymph % (Auto) [place] % (Auto) Eos % (Auto) Baso % (Auto) Lymph # (Auto) [place] # (Auto) Eos # (Auto) Baso # (Auto) Abs Immat Gran (auto) Absolute Neuts (auto) Absolute Nucleated RBC Nucleated RBC % (auto) Smear Tech's Comments ESR Anion Gap Estim Creat Clear Calc Estimated GFR Random Glucose Lactic Acid 1.9 Calcium Magnesium Total Bilirubin Direct Bilirubin AST ALT Alkaline Phosphatase Total Creatine Kinase Troponin I High Sens 26.7 H C-Reactive Protein B-Natriuretic Peptide 195 H Total Protein Albumin 01/30/23 13:39 MCV MCH MCHC RDW Plt Count MPV Immature Gran % (Auto) Neut % (Auto) Lymph % (Auto) [place] % (Auto) Eos % (Auto) Baso % (Auto) Lymph # (Auto) [place] # (Auto) Eos # (Auto) Baso # (Auto) Abs Immat Gran (auto) Absolute Neuts (auto) Absolute Nucleated RBC Nucleated RBC % (auto) Smear Tech's Comments ESR Anion Gap Estim Creat Clear Calc Estimated GFR Random Glucose Lactic Acid Calcium Magnesium Total Bilirubin Direct Bilirubin AST ALT Alkaline Phosphatase Total Creatine Kinase 13 L Troponin I High Sens C-Reactive Protein B-Natriuretic Peptide Total Protein Albumin Imaging Radiologist's Impressions: Impressions Chest X-Ray 01/30/23 13:03 IMPRESSION: No acute abnormality. Elbow X-Ray 01/30/23 14:17 IMPRESSION: Small joint effusion. 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 Generalized weakness Acute onset one week ago since starting IV abx for osteo of left elbow, progrssively worsening Unclear etiology, likely multifactorial: Hyponatremia versus IVA versus chronic prednisone myopathy Rheumatological conditions less likely given low CRP, ESR Will check TSH, B12, Folate Neurology consult IVA on CKD stage 3 Creatinine 1.85, up from baseline of 1.5 Pt being treated with gentle IVF: normal saline at 80 mls/hr Will hold diuretics for now Follow BMP Hyponatremia Patient's sodium 130, previous was 131 01/27/2023 Patient receiving normal saline Follow BMP Osteomyelitis of left olecranon Last infusion today Continue ertapenem ID consult Hypertensive urgency Pt's BP elevated at 196/88 Pt has not had BP meds today Continue home antihypertensives Monitor BP closely Polymyalgia rheumatica Continue prednisone Insulin-dependent diabetes type 2 Patient hypoglycemic with random glucose of 317 Patient placed on sliding scale insulin, Lantus Diabetic diet Full Code Attending:?Dr. Merrill DVT Prophylaxis: Lovenox Pt will require a hospitalization of at least two nights for treatment of?IVA, hyponatremia, and acute onset of lower leg weakness of unclear etiology. Time Spent With Patient Time: Total time managing care of this patient today ____ minutes. Quality Stroke Does the patient have a stroke diagnosis?: No VTE Prior VTE?: No VTE Risk Level:: Medical - moderate - high VTE Device Contraindication: Treatment Not Indicated VTE Drug Contraindication: N/A - Med Ordered
[2023-01-30] MEDS: oxyCODONE HCl Immed Release 5 MG TABLET PO (16:45)
[2023-01-30 19:05] VITALS: BP 191/83; PULSE 71; RESP 18; TEMP 36.6; O2SAT 93
[2023-01-30 19:10] LABS: Glucose, Whole Blood 292 mg/dL (60-115)
[2023-01-30 19:39] VITALS: BP 174/87; PULSE 81; RESP 16; TEMP 37; O2SAT 95
[2023-01-30] MEDS: Insulin Glargine,Hum.rec.anlog 100 UNIT/ML 10 ML VIAL 14 UNIT SUBCUT (20:09)
[2023-01-30] MEDS: carvediloL 25 MG TABLET PO (20:09)
[2023-01-30] MEDS: Milk of Magnesia 30 ML ORAL.SUSP PO (20:09)
[2023-01-30] MEDS: Enoxaparin Sodium 30 MG/0.3 ML SYRINGE SUBCUT (20:15)
[2023-01-30] MEDS: Ezetimibe 10 MG TABLET PO (20:15)
[2023-01-30] MEDS: 0.9 % Sodium Chloride 1,000 ML 80 ML IVCONT (21:45)
[2023-01-30 22:54] LABS: Glucose, Whole Blood 305 mg/dL (60-115)
[2023-01-30] MEDS: Famotidine 20 MG TABLET 40 MG PO (23:02)
[2023-01-30] MEDS: Insulin Lispro 100 UNIT/ML 3 ML VIAL SUBCUT (23:02)
[2023-01-31] VITALS (7 sets, daily range): BP systolic 136–176; BP diastolic 67–83; PULSE 60–80; RESP 13–18; TEMP 36.1–36.8; O2SAT 90–94
--- NOTE | 2023-01-31 00:38 | PC.NURSE ---
Report given to Edie RN at ext [phone]. Verbalized no questions and ready to accept patient.
[2023-01-31 06:32] LABS: Hematocrit 37.1 % (37.0-47.0); Hemoglobin 12.6 g/dl (12.0-16.0); Mean Corpuscular Hemoglobin 29.1 pg (27.0-33.0); Mean Corpuscular Volume 85.7 fL (80.0-98.0); Mean Platelet Volume 10.4 fL (9.4-12.3); Platelet Count 234 X10*3/uL (160-400); Red Blood Count 4.33 X10*6/uL (4.20-5.50); Red Cell Distribution Width 15.2 % (11.0-16.0); White Blood Count 13.4 X10*3/uL (4.8-10.8)
[2023-01-31 06:50] LABS: Anion Gap 12 (12-20); Blood Urea Nitrogen 37 mg/dL (9-16); Calcium 9.6 mg/dL (8.4-10.2); Carbon Dioxide 27 mmol/L (22-29); Chloride 99 mmol/L (96-108); Creatinine Clr Calc Pharmacy 35.1; Estimated Glomerular Filt Rate 38; Glucose Random 111 mg/dL (60-115); Potassium 3.6 mmol/L (3.3-5.1); Sodium 134 mmol/L (135-145)
[2023-01-31 07:20] LABS: Folate 7.3 ng/mL (> or = 4.0); Vitamin B12 243 pg/mL (200-900)
[2023-01-31 07:33] LABS: Glucose, Whole Blood 115 mg/dL (60-115)
[2023-01-31] MEDS: Insulin Glargine,Hum.rec.anlog 100 UNIT/ML 10 ML VIAL 14 UNIT SUBCUT (08:29)
[2023-01-31] MEDS: predniSONE 5 MG TABLET 15 MG PO (08:30)
[2023-01-31] MEDS: carvediloL 25 MG TABLET PO ×2 (08:30→16:35)
[2023-01-31] MEDS: Ezetimibe 10 MG TABLET PO (08:30)
--- NOTE | 2023-01-31 11:01 | P.PNIM_ITS ---
Subjective Subjective Date of Service: 01/31/23 Interval History: Being followed for weakness and difficulty in ambulation, at present patient is eating breakfast complaining of persistent weakness, denies nausea vomiting, has chronic left upper quadrant abdominal pain, no diarrhea, no fevers, no chills, no shortness of breath at present, no lower extremity numbness or tingling, no chest pain, no palpitations, complaining of persistent left elbow discomfort. Review of Systems All other system reviewed and negative. Physical Exam Vital Signs: Vital Signs: Last Vital Signs Temp 98.2 F 01/31/23 07:25 Pulse 60 01/31/23 08:30 Resp 18 01/31/23 07:25 BP 164/72 H 01/31/23 08:30 Pulse Ox 90 L 01/31/23 08:30 O2 Del Method Room Air 01/31/23 07:25 BMI result Body Mass Index 28.0 Const: Other: General patient resting comfortably in no acute distress. Neck supple no JVD. CVS regular rate rhythm, Respiratory lungs clear to auscultation, no respiratory distress, no wheeze, no rhonchi. Gastrointestinal abdomen soft, non tender, bowel sounds audible, no guarding , no rigidity. Extremities no edema. Neuro face symmetrical, speech clear, 3/5 strength both upper and lower ex tremity. Skin no rash Left elbow dressing in place, wound picture in admission note Psych appropriate affect Objective Data Active Medications Acetaminophen (Acetaminophen 325 Mg Tablet) 650 mg PO Q6H PRN PRN Reason: Pain, Mild (Pain Scale 1-3) Azelastine HCl (Azelastine Hcl Nasal 137 Mcg/[place] 30 Ml) 1 spray NOSTRIL-B BID [facility] Last Admin: 01/31/23 10:19 Dose: Not Given Documented By: EVENS Non-Admin Reason: Med Not Available Carvedilol (Carvedilol 25 Mg Tablet) 25 mg PO BIDWM [facility]; Protocol Last Admin: 01/31/23 08:30 Dose: 25 mg Documented By: EVENS Dextrose (Dextrose 50 % 25 Gm/50 Ml Syringe) 25 gm IVPUSH Q15M PRN; Protocol PRN Reason: per Hypoglycemia Standing Ord. Docusate Sodium (Docusate Sodium 100 Mg Capsule) 100 mg PO DAILY PRN PRN Reason: Constipation Ezetimibe (Ezetimibe 10 Mg Tablet) 10 mg PO DAILY [facility] Last Admin: 01/31/23 08:30 Dose: 10 mg Documented By: EVENS Enoxaparin Sodium (Enoxaparin Sodium 30 Mg/0.3 Ml Syringe) 30 mg SUBCUT Q24H [facility] Last Admin: 01/30/23 20:15 Dose: 30 mg Documented By: ELROY Famotidine (Famotidine 20 Mg Tablet) 40 mg PO BEDTIME [facility] Last Admin: 01/30/23 23:02 Dose: 40 mg Documented By: ELROY Gabapentin (Gabapentin 100 Mg Capsule) 200 mg PO TID PRN PRN Reason: Pain, Mild (Pain Scale 1-3) Glucose (Glucose Gel 15 Gm Gel..Gram.) 15 gm PO Q15M PRN; Protocol PRN Reason: per Hypoglycemia Standing Ord. Meropenem 1 gm/ Sodium (Chloride) 100 mls @ 200 mls/hr IV Q12H [facility] Insulin Glargine (Insulin Glargine,Hum.Rec.Anlog 100 Unit/Ml 10 Ml Vial) 14 unit SUBCUT DAILY [facility] Last Admin: 01/31/23 08:29 Dose: 14 unit Documented By: EVENS Insulin Human Lispro (Insulin Lispro 100 Unit/Ml 3 Ml Vial) 0 unit SUBCUT QIDACHS [facility]; Protocol Last Admin: 01/31/23 07:41 Dose: Not Given Documented By: EVENS Non-Admin Reason: No Insulin Coverage Magnesium Hydroxide (Milk Of Magnesia 30 Ml Oral.Susp) 30 ml PO DAILY [facility] Last Admin: 01/31/23 08:31 Dose: Not Given Documented By: EVENS Non-Admin Reason: Patient Refused Ondansetron HCl (Ondansetron Hcl 4 Mg/2 Ml Vial) 4 mg IVPUSH Q8H PRN PRN Reason: Nausea and Vomiting Pharmacy Consult (Consult Rx Perform Med Rec) 1 each MISCELLANE ONCE PRN PRN Reason: Consult order Prednisone (Prednisone 5 Mg Tablet) 15 mg PO DAILY [facility] Last Admin: 01/31/23 08:30 Dose: 15 mg Documented By: EVENS Sodium Chloride (0.9 % Sodium Chloride Flush 3 Ml Syringe) 3 ml IVFLUSH QSHIFT [facility] Last Admin: 01/31/23 07:42 Dose: Not Given Documented By: EVENS Non-Admin Reason: IV Running Labs 01/31/23 05:28 01/31/23 05:28 Labs: Laboratory Results - last 24 hr 01/30/23 01/30/23 01/30/23 13:39 13:39 13:39 MCV 83.9 MCH 28.7 MCHC 34.2 RDW 15.4 Plt Count 247 MPV 9.3 L Immature Gran % (Auto) 1.1 H Neut % (Auto) 91.3 H Lymph % (Auto) 3.7 L [place] % (Auto) 3.5 Eos % (Auto) 0.2 Baso % (Auto) 0.2 Lymph # (Auto) 0.7 L [place] # (Auto) 0.7 Eos # (Auto) 0.0 Baso # (Auto) 0.0 Abs Immat Gran (auto) 0.21 H Absolute Neuts (auto) 17.0 H Absolute Nucleated RBC 0.000 Nucleated RBC % (auto) 0.0 Smear Tech's Comments VERIFIED ESR 7 Anion Gap 14 Estim Creat Clear Calc 26.2 Estimated GFR 27 POC Glucose Random Glucose 317 H Lactic Acid Calcium 11.4 H Magnesium 2.4 Total Bilirubin 0.5 Direct Bilirubin 0.1 AST 15 ALT 13 Alkaline Phosphatase 99 Total Creatine Kinase Troponin I High Sens C-Reactive Protein 1.05 H B-Natriuretic Peptide Total Protein 5.9 L Albumin 3.4 L Vitamin B12 Folate TSH 01/30/23 01/30/23 01/30/23 13:39 13:39 13:39 MCV MCH MCHC RDW Plt Count MPV Immature Gran % (Auto) Neut % (Auto) Lymph % (Auto) [place] % (Auto) Eos % (Auto) Baso % (Auto) Lymph # (Auto) [place] # (Auto) Eos # (Auto) Baso # (Auto) Abs Immat Gran (auto) Absolute Neuts (auto) Absolute Nucleated RBC Nucleated RBC % (auto) Smear Tech's Comments ESR Anion Gap Estim Creat Clear Calc Estimated GFR POC Glucose Random Glucose Lactic Acid 1.9 Calcium Magnesium Total Bilirubin Direct Bilirubin AST ALT Alkaline Phosphatase Total Creatine Kinase Troponin I High Sens 26.7 H C-Reactive Protein B-Natriuretic Peptide 195 H Total Protein Albumin Vitamin B12 Folate TSH 01/30/23 01/30/23 01/30/23 13:39 19:03 19:23 MCV MCH MCHC RDW Plt Count MPV Immature Gran % (Auto) Neut % (Auto) Lymph % (Auto) [place] % (Auto) Eos % (Auto) Baso % (Auto) Lymph # (Auto) [place] # (Auto) Eos # (Auto) Baso # (Auto) Abs Immat Gran (auto) Absolute Neuts (auto) Absolute Nucleated RBC Nucleated RBC % (auto) Smear Tech's Comments ESR Anion Gap Estim Creat Clear Calc Estimated GFR POC Glucose 292 H Random Glucose Lactic Acid Calcium Magnesium Total Bilirubin Direct Bilirubin AST ALT Alkaline Phosphatase Total Creatine Kinase 13 L Troponin I High Sens 21.0 H C-Reactive Protein B-Natriuretic Peptide Total Protein Albumin Vitamin B12 Folate TSH 01/30/23 01/31/23 01/31/23 22:51 05:28 05:28 MCV 85.7 MCH 29.1 MCHC 34.0 RDW 15.2 Plt Count 234 MPV 10.4 Immature Gran % (Auto) Neut % (Auto) Lymph % (Auto) [place] % (Auto) Eos % (Auto) Baso % (Auto) Lymph # (Auto) [place] # (Auto) Eos # (Auto) Baso # (Auto) Abs Immat Gran (auto) Absolute Neuts (auto) Absolute Nucleated RBC 0.000 Nucleated RBC % (auto) 0.0 Smear Tech's Comments ESR Anion Gap 12 Estim Creat Clear Calc 35.1 Estimated GFR 38 POC Glucose 305 H Random Glucose 111 Lactic Acid Calcium 9.6 D Magnesium Total Bilirubin Direct Bilirubin AST ALT Alkaline Phosphatase Total Creatine Kinase Troponin I High Sens C-Reactive Protein B-Natriuretic Peptide Total Protein Albumin Vitamin B12 Folate TSH 01/31/23 01/31/23 01/31/23 05:28 05:28 07:28 MCV MCH MCHC RDW Plt Count MPV Immature Gran % (Auto) Neut % (Auto) Lymph % (Auto) [place] % (Auto) Eos % (Auto) Baso % (Auto) Lymph # (Auto) [place] # (Auto) Eos # (Auto) Baso # (Auto) Abs Immat Gran (auto) Absolute Neuts (auto) Absolute Nucleated RBC Nucleated RBC % (auto) Smear Tech's Comments ESR Anion Gap Estim Creat Clear Calc Estimated GFR POC Glucose 115 Random Glucose Lactic Acid Calcium Magnesium Total Bilirubin Direct Bilirubin AST ALT Alkaline Phosphatase Total Creatine Kinase Troponin I High Sens C-Reactive Protein B-Natriuretic Peptide Total Protein Albumin Vitamin B12 243 Folate 7.3 TSH 0.60 Assessment and Plan (1) Hyponatremia: Status: Acute (2) Generalized weakness: Status: Acute (3) Osteomyelitis: Status: Acute Plan 67-year-old female with a PMH significant for?left olecranon osteomyelitis start ed on ertapenem IV 01/26/2023, HTN, insulin-dependent diabetes type 2, polymyalgia rheumatica on chronic prednisone, CKD 3, and CHF unspecified who presents to the ED with?generalized weakness and fatigue for the past 7 days, especially weak in lower legs. Generalized weakness Noted to have weakness x1 week after starting IV antibiotic for left elbow cellulitis Unclear etiology, likely multifactorial:? Due to acute infection, Hyponatremia, IVA versus, chronic prednisone myopathy Rheumatological conditions less likely given low CRP, ESR, normal troponin, EKG with no acute ischemia Normal TSH, B12, Folate PT consult Neurology consult IVA on CKD stage 3 Creatinine 1.85 on admission, up from baseline of 1.5, treated with IV fluids creatinine returned to baseline will DC IV fluids continue to hold diuretic for 1 more day, no evidence of fluid overload Follow BMP Hyponatremia Sodium improved to 134 with IV fluids likely hypovolemic hyponatremia due to multiple diuretics Follow BMP Osteomyelitis of left olecranon on meropenem will place back on ertapenem upon discharge ID consult Hypertensive urgency Pt's BP elevated at 196/88 on admission since did not take her home meds Continue home antihypertensives, Monitor BP closely Polymyalgia rheumatica Continue prednisone home dose 18 mg will change to 17 mg Insulin-dependent diabetes type 2 Patient hyperglycemic with random glucose of 317 on admission, likely due to steroids continue Lantus, insulin sliding scale and diabetic diet Full Code DVT Prophylaxis: Lovenox Pt will require continued inpatient hospitalization for hyponatremia, and acute onset of lower leg weakness of unclear etiology. Time Spent With Patient Time: Total time managing care of this patient today ____ minutes. Quality Stroke Does the patient have a stroke diagnosis?: No VTE Prior VTE?: No VTE Risk Level:: Medical - moderate - high VTE Device Contraindication: Treatment Not Indicated VTE Drug Contraindication: N/A - Med Ordered
[2023-01-31 11:10] LABS: Glucose, Whole Blood 176 mg/dL (60-115)
[2023-01-31] MEDS: Insulin Lispro 100 UNIT/ML 3 ML VIAL SUBCUT ×3 (11:41→21:55)
[2023-01-31] MEDS: predniSONE 1 MG TABLET 2 MG PO (11:41)
--- NOTE | 2023-01-31 12:02 | MHC.CM.PN ---
PATIENT LIVES WITH SPOUSE. SHE DOES NOT HAVE A HCP ON FILE. 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 SHE HAS A WALKER, BUT SPOUSE SAYS THAT SHE DOESN'T USE IT OFTEN ANYMORE AND RELIES MOSTLY ON HIM. PATIENT AND SPOUSE REFUSE ANY REHAB REFERRALS BUT ARE OPEN TO [facility] REFERRAL, NOW PLACED IMM 01/31 IN CHART
[2023-01-31] MEDS: Acetaminophen 325 MG TABLET 650 MG PO (15:20)
[2023-01-31] MEDS: Gabapentin 100 MG CAPSULE 200 MG PO (15:20)
[2023-01-31 16:18] LABS: Glucose, Whole Blood 235 mg/dL (60-115)
[2023-01-31] MEDS: Enoxaparin Sodium 30 MG/0.3 ML SYRINGE SUBCUT (18:00)
[2023-01-31 20:52] LABS: Glucose, Whole Blood 242 mg/dL (60-115)
[2023-01-31] MEDS: Azelastine HCl Nasal 137 MCG/Spray 30 ML 1 SPRAY NOSTRIL-B (21:53)
[2023-01-31] MEDS: Famotidine 20 MG TABLET 40 MG PO (21:55)
[2023-01-31] MEDS: 0.9 % Sodium Chloride Flush 3 ML SYRINGE IVFLUSH (21:56)
[2023-02-01 03:39] VITALS: BP 190/86; PULSE 54; RESP 18; TEMP 36.6; O2SAT 93
--- NOTE | 2023-02-01 03:52 | PC.NURSE ---
Addendum entered by Edwige Ariza RN 02/01/23 06:18: patient medicated with tylenol and gabapentin for back pain, BP will be taken again in few more minutes when patient is more comfortable. Md aware Addendum entered by Edwige Ariza RN 02/01/23 06:13: 5 mg of Hydralazine IV given, BP 174/60 . Md notified Original Note: BP 190/86 manually, pulse 54. Dr Gee messaged via [employer], awaiting response. Patient is comfortable, no pain, repositioned.
[2023-02-01] MEDS: hydrALAZINE HCl 20 MG/ML VIAL 5 MG IVPUSH (05:44)
[2023-02-01] MEDS: Gabapentin 100 MG CAPSULE 200 MG PO ×2 (06:03→18:25)
[2023-02-01] MEDS: Acetaminophen 325 MG TABLET 650 MG PO ×2 (06:04→18:25)
[2023-02-01 06:09] LABS: Appearance Urine Clear; Color Urine Yellow; Glucose Urine UA Negative (Negative); Leukocyte Esterase Urine Negative (Negative); Nitrite Urine Negative (Negative); UMIC TRIGGER UACC YES; Urine Blood Negative (Negative); Urine Ketones Negative (Negative); Urine Protein 100 (2+) mg/dL (Neg-Trace)
[2023-02-01 06:11] VITALS: BP 174/60; RESP 16
[2023-02-01 06:14] LABS: Bacteria Urine None Seen (None Seen); Hyaline Casts Urine 0-2 /LPF (0-2); Squamous Epithelial Cell Urine 0-2 /HPF (0-2); WBC Urine 0-5 /HPF (0-5)
[2023-02-01 07:02] VITALS: BP 192/89; PULSE 64; RESP 18; TEMP 36.7; O2SAT 94
[2023-02-01 07:29] LABS: Glucose, Whole Blood 120 mg/dL (60-115)
[2023-02-01] MEDS: predniSONE 1 MG TABLET 2 MG PO (07:34)
[2023-02-01] MEDS: Ezetimibe 10 MG TABLET PO (07:34)
[2023-02-01] MEDS: carvediloL 25 MG TABLET PO ×2 (07:34→16:38)
[2023-02-01] MEDS: predniSONE 5 MG TABLET 15 MG PO (07:34)
[2023-02-01] MEDS: Milk of Magnesia 30 ML ORAL.SUSP PO (07:35)
[2023-02-01] MEDS: Insulin Glargine,Hum.rec.anlog 100 UNIT/ML 10 ML VIAL 14 UNIT SUBCUT (07:37)
--- NOTE | 2023-02-01 07:43 | PC.NURSE ---
BP 192/90, HR 64, DR Merrill made aware, scheduled BP meds given, will recheck in half hour from administration time.
[2023-02-01 08:25] VITALS: BP 172/80
[2023-02-01] MEDS: Azelastine HCl Nasal 137 MCG/Spray 30 ML 1 SPRAY NOSTRIL-B ×2 (09:04→21:21)
[2023-02-01] MEDS: Celecoxib 200 MG CAPSULE PO (09:04)
[2023-02-01] MEDS: 0.9 % Sodium Chloride Flush 3 ML SYRINGE IVFLUSH ×2 (09:04→21:22)
[2023-02-01 11:15] LABS: Glucose, Whole Blood 144 mg/dL (60-115)
--- NOTE | 2023-02-01 12:03 | HO.PM.IMPN ---
Subjective Subjective Date of Service: 02/01/23 Interval History: Feeling much better this morning less leg weakness, had back pain that improved with Celebrex this morning, offers no other acute complaints of chest pain, shortness of breath, PND or orthopnea, no fever no chills, no urinary symptoms. Review of Systems All other systems reviewed and negative. Physical Exam Vital Signs: Vital Signs: Last Vital Signs Temp 98.1 F 02/01/23 07:02 Pulse 64 02/01/23 07:02 Resp 18 02/01/23 07:02 BP 172/80 H 02/01/23 08:25 Pulse Ox 94 02/01/23 07:02 O2 Del Method Room Air 02/01/23 07:02 BMI result Body Mass Index 28.0 Const: Other: General patient resting comfortably in no acute distress.? Neck? supple no JVD. CVS? regular rate rhythm, Respiratory lungs clear to auscultation, no respiratory distress, no wheeze, no rhonchi. Gastrointestinal abdomen soft, non tender, bowel sounds audible, no guarding , no rigidity. Extremities no edema. Neuro face symmetrical, speech clear, both upper and lower extremity strength improved 3-4/5. Skin ecchymosis anterior chest/arms Left elbow dressing in place, wound picture in admission note Psych appropriate affect Objective Data Active Medications Acetaminophen (Acetaminophen 325 Mg Tablet) 650 mg PO Q6H PRN PRN Reason: Pain, Mild (Pain Scale 1-3) Last Admin: 02/01/23 06:04 Dose: 650 mg Documented By: DAVID Azelastine HCl (Azelastine Hcl Nasal 137 Mcg/[place] 30 Ml) 1 spray NOSTRIL-B BID [facility] Last Admin: 02/01/23 09:04 Dose: 1 spray Documented By: ABDI Carvedilol (Carvedilol 25 Mg Tablet) 25 mg PO BIDWM [facility]; Protocol Last Admin: 02/01/23 07:34 Dose: 25 mg Documented By: ABDI Dextrose (Dextrose 50 % 25 Gm/50 Ml Syringe) 25 gm IVPUSH Q15M PRN; Protocol PRN Reason: per Hypoglycemia Standing Ord. Docusate Sodium (Docusate Sodium 100 Mg Capsule) 100 mg PO DAILY PRN PRN Reason: Constipation Ezetimibe (Ezetimibe 10 Mg Tablet) 10 mg PO DAILY [facility] Last Admin: 02/01/23 07:34 Dose: 10 mg Documented By: ABDI Enoxaparin Sodium (Enoxaparin Sodium 30 Mg/0.3 Ml Syringe) 30 mg SUBCUT Q24H [facility] Last Admin: 01/31/23 18:00 Dose: 30 mg Documented By: EVENS Famotidine (Famotidine 20 Mg Tablet) 40 mg PO BEDTIME [facility] Last Admin: 01/31/23 21:55 Dose: 40 mg Documented By: DAVID Gabapentin (Gabapentin 100 Mg Capsule) 200 mg PO TID PRN PRN Reason: Pain, Mild (Pain Scale 1-3) Last Admin: 02/01/23 06:03 Dose: 200 mg Documented By: DAVID Glucose (Glucose Gel 15 Gm Gel..Gram.) 15 gm PO Q15M PRN; Protocol PRN Reason: per Hypoglycemia Standing Ord. Meropenem 1 gm/ Sodium (Chloride) 100 mls @ 200 mls/hr IV Q12H [facility] Last Infusion: 02/01/23 04:07 Dose: 0 mls/hr Documented By: DAVID Insulin Glargine (Insulin Glargine,Hum.Rec.Anlog 100 Unit/Ml 10 Ml Vial) 14 unit SUBCUT DAILY [facility] Last Admin: 02/01/23 07:37 Dose: 14 unit Documented By: ABDI Insulin Human Lispro (Insulin Lispro 100 Unit/Ml 3 Ml Vial) 0 unit SUBCUT QIDACHS [facility]; Protocol Last Admin: 02/01/23 07:26 Dose: Not Given Documented By: ABDI Non-Admin Reason: No Insulin Coverage Magnesium Hydroxide (Milk Of Magnesia 30 Ml Oral.Susp) 30 ml PO DAILY [facility] Last Admin: 02/01/23 07:35 Dose: 30 ml Documented By: ABDI Ondansetron HCl (Ondansetron Hcl 4 Mg/2 Ml Vial) 4 mg IVPUSH Q8H PRN PRN Reason: Nausea and Vomiting Pharmacy Consult (Consult Rx Perform Med Rec) 1 each MISCELLANE ONCE PRN PRN Reason: Consult order Prednisone (Prednisone 5 Mg Tablet) 15 mg PO DAILY [facility] Last Admin: 02/01/23 07:34 Dose: 15 mg Documented By: ABDI Prednisone (Prednisone 1 Mg Tablet) 4 mg PO DAILY [facility] Last Admin: 02/01/23 09:01 Dose: Not Given Documented By: ABDI Non-Admin Reason: previous dose given prior to DC Sodium Chloride (0.9 % Sodium Chloride Flush 3 Ml Syringe) 3 ml IVFLUSH QSHIFT [facility] Last Admin: 02/01/23 09:04 Dose: 3 ml Documented By: ABDI Labs 01/31/23 05:28 01/31/23 05:28 Labs: Laboratory Results - last 24 hr 01/31/23 01/31/23 02/01/23 16:13 20:30 05:30 POC Glucose 235 H 242 H Urine Color Yellow Urine Appearance Clear Urine pH 7.0 Ur Specific [place] 1.010 Urine Protein 100 (2+) H Urine Glucose (UA) Negative Urine Ketones Negative Urine Blood Negative Urine Nitrite Negative Ur Leukocyte Esterase Negative Urine RBC 3-5 H Urine WBC 0-5 Ur Squamous Epith Cells 0-2 Urine Bacteria None Seen Hyaline Casts 0-2 02/01/23 02/01/23 07:21 11:07 POC Glucose 120 H 144 H Urine Color Urine Appearance Urine pH Ur Specific [place] Urine Protein Urine Glucose (UA) Urine Ketones Urine Blood Urine Nitrite Ur Leukocyte Esterase Urine RBC Urine WBC Ur Squamous Epith Cells Urine Bacteria Hyaline Casts Microbiology Microbiology Results: Microbiology 01/30/23 13:49 Blood Culture - Preliminary Blood - Venous No growth after 24 hours. 01/30/23 13:40 Blood Culture - Preliminary Blood - Venous No growth after 24 hours. 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 Generalized weakness Noted to have weakness x1 week after starting IV ertapenem for left elbow cellulitis Unclear etiology, likely multifactorial:? Due to acute infection, Hyponatremia, IVA versus, chronic prednisone myopathy Rheumatological conditions less likely given low CRP, ESR, normal troponin, EKG with no acute ischemia Normal TSH, B12, Folate Seen by PT they recommend home PT Follow Neurology and ID consult IVA on CKD stage 3 Creatinine 1.85 on admission, up from baseline of 1.5, treated with IV fluids creatinine returned to baseline with IV fluids , Aldactone 25 b.i.d. and torsemide 60mg am and 40 noon on hold, no evidence of fluid overload Will resume torsemide change dose to 40 b.i.d., and Aldactone 25 mg daily Follow BMP and clinical course Hyponatremia Sodium improved to 134 with IV fluids likely hypovolemic hyponatremia due to multiple diuretics Follow BMP Osteomyelitis of left olecranon on meropenem will place back on ertapenem upon discharge ID consult Hypertensive urgency Pt's BP elevated since diuretics on hold will resume diuretics follow BP Continue home antihypertensives, Monitor BP closely Polymyalgia rheumatica Back pain 1 dose of Celebrex given with good result Continue prednisone home dose 19 mg on med reconciliation as per patient she is on 18 mg, will continue current home dose of 19 mg and recommend outpatient follow-up with PCP/rheum Insulin-dependent diabetes type 2 Patient hyperglycemic with random glucose of 317 on admission,now 144 likely due to steroids continue Lantus, insulin sliding scale and diabetic diet Full Code DVT Prophylaxis: Lovenox Pt will require continued inpatient hospitalization for hyponatremia, and acute onset of lower leg weakness . Time Spent With Patient Time: Total time managing care of this patient today ____ minutes. Quality Stroke Does the patient have a stroke diagnosis?: No VTE Prior VTE?: No VTE Risk Level:: Medical - moderate - high VTE Device Contraindication: Treatment Not Indicated VTE Drug Contraindication: N/A - Med Ordered
[2023-02-01] MEDS: Torsemide 20 MG TABLET 40 MG PO (12:59)
[2023-02-01 15:15] VITALS: BP 158/68; PULSE 69; RESP 18; TEMP 36.9; O2SAT 94
[2023-02-01 16:15] LABS: Glucose, Whole Blood 287 mg/dL (60-115)
[2023-02-01] MEDS: Insulin Lispro 100 UNIT/ML 3 ML VIAL SUBCUT ×2 (16:37→21:22)
[2023-02-01] MEDS: Enoxaparin Sodium 30 MG/0.3 ML SYRINGE SUBCUT (18:18)
[2023-02-01 20:22] LABS: Glucose, Whole Blood 210 mg/dL (60-115)
[2023-02-01] MEDS: Famotidine 20 MG TABLET 40 MG PO (21:22)
--- NOTE | 2023-02-01 22:16 | W.PM.IDCN ---
History of Present Illness Data of Consult Service Date: 01/30/23 Requesting physician: Makeda Lira Primary Care Provider: Allison Reyes MD [facility] Reason for consult: encephalopathy She presents with weakness and inability to get out of bed. She is in wheelchair. She has left chronic elbow pain and swelling and has had open wound for three years left elbow. Review of Systems Review of Systems: Yes all other systems are reviewed and are negative [facility] Past Medical History Medical History Artery occlusion Cataract Diabetes Kidney disease Osteomyelitis Polymazia Smoker Family History Family history: reviewed and not pertinent Surgical History Surgical History H/O section H/O: hysterectomy History of total knee replacement History of urostomy Hx of cholecystectomy Social History Social History Household Members: Spouse Housing: House Do you presently have visiting nurse or other home services: No Patient Tobacco Use Status: Current everyday Tobacco user Tobacco use type: Cigarette Cigarettes Per Day: 5 Smoked in Last 30 Days: Yes e-Cigarette/Vaping Use: Never Used Patient Interested in Nicotine Replacement: Yes Patient Given Instructions on How to Stop Smoking: Yes Date Education Initiated: 01/31/23 Second Hand Smoke Exposure: No Use of substances other than those prescribed or required for medical reasons: No Currently Displaying Signs/Symptoms of Drug Intoxication Withdrawal: No Any prior treatment program specific to substance use: No Have you been hit, kicked, punched, or otherwise hurt by someone within the past year? If so, by whom?: No Do you feel safe in your current relationship?: Yes Is there a partner from a previous relationship who is making you feel unsafe now?: No Are you made to feel afraid or neglected: No Advance Directives: No Advance Directives Information Provided: No Advance Directives on File: No Do you have thoughts of harming others: None Do you have a plan to hurt others: No Plan Recently lost weight without trying: No Eating poorly because of decreased appetite: Yes Nutrition Risks: No Nutritional Risk Patient : No : No Poor oral hygiene: No service: No Meds Allergies Allergy/AdvReac Type Severity Reaction Status Date / Time lisinopril Allergy Severe Cough Verified 01/27/23 07:40 morphine AdvReac Severe Hallucinati Verified 01/27/23 07:41 ons Active Medications: Current Medications Acetaminophen (Acetaminophen 325 Mg Tablet) 650 mg PO Q6H PRN PRN Reason: Pain, Mild (Pain Scale 1-3) Last Admin: 02/01/23 18:25 Dose: 650 mg Azelastine HCl (Azelastine Hcl Nasal 137 Mcg/[place] 30 Ml) 1 spray NOSTRIL-B BID [facility] Last Admin: 02/01/23 21:21 Dose: 1 spray Carvedilol (Carvedilol 25 Mg Tablet) 25 mg PO BIDWM [facility]; Protocol Last Admin: 02/01/23 16:38 Dose: 25 mg Dextrose (Dextrose 50 % 25 Gm/50 Ml Syringe) 25 gm IVPUSH Q15M PRN; Protocol PRN Reason: per Hypoglycemia Standing Ord. Docusate Sodium (Docusate Sodium 100 Mg Capsule) 100 mg PO DAILY PRN PRN Reason: Constipation Ezetimibe (Ezetimibe 10 Mg Tablet) 10 mg PO DAILY [facility] Last Admin: 02/01/23 07:34 Dose: 10 mg Enoxaparin Sodium (Enoxaparin Sodium 30 Mg/0.3 Ml Syringe) 30 mg SUBCUT Q24H [facility] Last Admin: 02/01/23 18:18 Dose: 30 mg Famotidine (Famotidine 20 Mg Tablet) 40 mg PO BEDTIME [facility] Last Admin: 02/01/23 21:22 Dose: 40 mg Gabapentin (Gabapentin 100 Mg Capsule) 200 mg PO TID PRN PRN Reason: Pain, Mild (Pain Scale 1-3) Last Admin: 02/01/23 18:25 Dose: 200 mg Glucose (Glucose Gel 15 Gm Gel..Gram.) 15 gm PO Q15M PRN; Protocol PRN Reason: per Hypoglycemia Standing Ord. Meropenem 1 gm/ Sodium (Chloride) 100 mls @ 200 mls/hr IV Q12H [facility] Last Infusion: 02/01/23 16:00 Dose: Infused Insulin Glargine (Insulin Glargine,Hum.Rec.Anlog 100 Unit/Ml 10 Ml Vial) 14 unit SUBCUT DAILY [facility] Last Admin: 02/01/23 07:37 Dose: 14 unit Insulin Human Lispro (Insulin Lispro 100 Unit/Ml 3 Ml Vial) 0 unit SUBCUT QIDACHS [facility]; Protocol Last Admin: 02/01/23 21:22 Dose: 4 unit Magnesium Hydroxide (Milk Of Magnesia 30 Ml Oral.Susp) 30 ml PO DAILY [facility] Last Admin: 02/01/23 07:35 Dose: 30 ml Ondansetron HCl (Ondansetron Hcl 4 Mg/2 Ml Vial) 4 mg IVPUSH Q8H PRN PRN Reason: Nausea and Vomiting Pharmacy Consult (Consult Rx Perform Med Rec) 1 each MISCELLANE ONCE PRN PRN Reason: Consult order Prednisone (Prednisone 5 Mg Tablet) 15 mg PO DAILY [facility] Last Admin: 02/01/23 07:34 Dose: 15 mg Prednisone (Prednisone 1 Mg Tablet) 4 mg PO DAILY [facility] Last Admin: 02/01/23 09:01 Dose: Not Given Sodium Chloride (0.9 % Sodium Chloride Flush 3 Ml Syringe) 3 ml IVFLUSH QSHIFT [facility] Last Admin: 02/01/23 21:22 Dose: 3 ml Torsemide (Torsemide 20 Mg Tablet) 40 mg PO DAILY [facility]; Protocol Last Admin: 02/01/23 12:59 Dose: 40 mg Home Medications Medication Instructions Recorded Confirmed Last Taken Type carvedilol 25 mg tablet 25 mg PO BIDWM 12/17/22 01/30/23 01/29/23 History gabapentin 100 mg capsule 200 mg PO TID PRN Pain 12/17/22 01/30/23 Unknown History insulin degludec 100 unit/mL (3 20 unit subcut DAILY 12/17/22 01/30/23 01/29/23 History mL) subcutaneous pen (Tresiba FlexTouch U-100 insulin) insulin lispro 100 unit/mL 1 sliding scale dose subcut TIDAC 12/17/22 01/30/23 01/29/23 History subcutaneous cartridge (Humalog U-100 Insulin) liraglutide 0.6 mg/0.1 mL (18 mg/3 1.8 mg subcut DAILY 12/17/22 01/30/23 01/29/23 History mL) subcutaneous pen injector (Victoza 3-Delmer) magnesium hydroxide 400 mg/5 mL 400 mg PO DAILY 12/17/22 01/30/23 01/29/23 History oral suspension (Dulcolax (magnesium hydroxide)) spironolactone 25 mg tablet 25 mg PO BID 12/17/22 01/30/23 01/29/23 History acetaminophen 325 mg tablet 650 mg PO Q6H PRN Pain 01/30/23 01/30/23 Unknown History (Tylenol) azelastine 137 mcg (0.1 %) nasal 1 spray intranasal BID 01/30/23 01/30/23 01/29/23 History spray aerosol clotrimazole 1 % topical cream 1 appl topical BID 01/30/23 01/30/23 01/29/23 History ezetimibe 10 mg tablet 10 mg PO DAILY 01/30/23 01/30/23 01/29/23 History famotidine 40 mg tablet 40 mg PO BEDTIME 01/30/23 01/30/23 01/29/23 History loratadine-pseudoephedrine ER 10 1 tab PO DAILY 01/30/23 01/30/23 01/29/23 History mg-240 mg tablet,extended [id number] (Claritin-D 24 Hour) prednisone 1 mg tablet 4 mg PO DAILY 01/30/23 01/30/23 01/30/23 History prednisone 5 mg tablet 15 mg PO DAILY 01/30/23 01/30/23 01/30/23 History torsemide 20 mg tablet 40 mg PO DAILY@1200 01/30/23 01/30/23 01/29/23 History torsemide 20 mg tablet 60 mg PO DAILY@0900 01/30/23 01/30/23 01/29/23 History Physical Exam Vital Signs: Vital Signs: Last Vital Signs Temp 98.5 F 02/01/23 15:15 Pulse 69 02/01/23 15:15 Resp 18 02/01/23 15:15 BP 158/68 H 02/01/23 15:15 Pulse Ox 94 02/01/23 15:15 O2 Del Method Room Air 02/01/23 15:15 BMI result Body Mass Index 28.0 Const: General: cooperative HEENT: Head: Yes normal to inspection Face and sinus: Yes normal facial exam Mouth: Normal oral and palatal mucosa present Teeth and gingiva: dentition normal Eyes: General: appearance normal, both eyes and all related structures Pupils: Equal, round and reactive pupils present Resp: Effort & Inspection: normal respiratory effort Cardio: Rate: regular rate Rhythm: regular rhythm GI: Palpation (GI): Soft to palpation and nontender : General: Yes no CVA tenderness Back/Spine/Pelvis: Back: no CVA tenderness Skin: General skin exam: no rashes or lesions noted Neuro: General: moves all extremities Cranial nerves: Yes Equal, round and reactive pupils present Extrem: Other: scaly area left elbow Psych: Appearance: grossly normal Results Labs 01/31/23 05:28 01/31/23 05:28 Labs: Urine 02/01/23 Range/Units 05:30 Urine Color Yellow Urine Appearance Clear Urine pH 7.0 (5.0-9.0) Ur Specific [place] 1.010 (1.005-1.025) Urine Protein 100 (2+) H (Neg-Trace) mg/dL Urine Glucose (UA) Negative (Negative) mg/dL Microbiology Microbiology Results: Microbiology 01/30/23 13:49 Blood - Venous Blood Culture - Preliminary No growth after 48 hours. 01/30/23 13:40 Blood - Venous Blood Culture - Preliminary No growth after 48 hours. Assessment and Plan (1) Osteomyelitis: Status: Acute She has left elbow chronic infection. She has no organism identified. She has felt ill,may be related to antibiotic Ertapenem ,but no signs of Cdiff. Plan Would hold off on Ertapenem/merepenem. Linezolid 600 mg po bid probably six week total antibiotics Time Spent With Patient Time: Total time managing care of this patient today ____ minutes.
[2023-02-01] MEDS: Linezolid 600 MG TABLET PO (23:31)
[2023-02-02] VITALS: BP 145/70; PULSE 60; RESP 17; TEMP 36.4; O2SAT 95
[2023-02-02] MEDS: Gabapentin 100 MG CAPSULE 200 MG PO ×2 (05:20→11:24)
[2023-02-02] MEDS: Acetaminophen 325 MG TABLET 650 MG PO ×2 (05:20→14:47)
[2023-02-02 07:34] LABS: Glucose, Whole Blood 97 mg/dL (60-115)
[2023-02-02 07:55] VITALS: BP 176/77; PULSE 63; RESP 17; TEMP 36.1; O2SAT 93
[2023-02-02 08:06] LABS: Anion Gap 15 (12-20); Blood Urea Nitrogen 25 mg/dL (9-16); Calcium 8.7 mg/dL (8.4-10.2); Carbon Dioxide 25 mmol/L (22-29); Chloride 101 mmol/L (96-108); Estimated Glomerular Filt Rate 34; Glucose Random 82 mg/dL (60-115); Potassium 3.8 mmol/L (3.3-5.1); Sodium 137 mmol/L (135-145)
[2023-02-02] MEDS: Ezetimibe 10 MG TABLET PO (08:18)
[2023-02-02] MEDS: carvediloL 25 MG TABLET PO ×2 (08:18→17:20)
[2023-02-02] MEDS: Milk of Magnesia 30 ML ORAL.SUSP PO (08:18)
[2023-02-02] MEDS: Torsemide 20 MG TABLET 40 MG PO (08:18)
[2023-02-02] MEDS: predniSONE 1 MG TABLET 4 MG PO (08:18)
[2023-02-02] MEDS: predniSONE 5 MG TABLET 15 MG PO (08:18)
[2023-02-02] MEDS: Azelastine HCl Nasal 137 MCG/Spray 30 ML 1 SPRAY NOSTRIL-B (08:19)
[2023-02-02] MEDS: Insulin Glargine,Hum.rec.anlog 100 UNIT/ML 10 ML VIAL 14 UNIT SUBCUT (08:19)
[2023-02-02] MEDS: 0.9 % Sodium Chloride Flush 3 ML SYRINGE IVFLUSH (08:19)
[2023-02-02] MEDS: Linezolid 600 MG TABLET PO (11:24)
[2023-02-02 11:35] LABS: Glucose, Whole Blood 142 mg/dL (60-115)
--- NOTE | 2023-02-02 11:57 | P.PNIM_ITS ---
Subjective Subjective Date of Service: 02/02/23 Interval History: c/o leg cramps but overall weakness improved chronic L elbow pain Review of Systems Review of Systems: Yes all other systems are reviewed and are negative Physical Exam Vital Signs: Vital Signs: Last Vital Signs Temp 97.0 F 02/02/23 07:55 Pulse 63 02/02/23 07:55 Resp 17 02/02/23 07:55 BP 176/77 H 02/02/23 07:55 Pulse Ox 93 02/02/23 07:55 O2 Del Method Room Air 02/02/23 07:55 BMI result Body Mass Index 28.0 Gen: in no acute distress HEENT: sclera anicteric, moist mucus membranes Neck: supple Lungs: clear to auscultation bilaterally Heart: regular rate and rhythm, no murmurs Abd: soft, non-tender, non-distended Ext: no edema, scaly L elbow wound Skin: warm/well-perfused Neuro: alert and oriented x3, no focal findings Psych: appropriate affect Objective Data Active Medications Acetaminophen (Acetaminophen 325 Mg Tablet) 650 mg PO Q6H PRN PRN Reason: Pain, Mild (Pain Scale 1-3) Last Admin: 02/02/23 05:20 Dose: 650 mg Documented By: LYSMigdalia Azelastine HCl (Azelastine Hcl Nasal 137 Mcg/[place] 30 Ml) 1 spray NOSTRIL-B BID [facility] Last Admin: 02/02/23 08:19 Dose: 1 spray Documented By: COTEMA Carvedilol (Carvedilol 25 Mg Tablet) 25 mg PO BIDWM [facility]; Protocol Last Admin: 02/02/23 08:18 Dose: 25 mg Documented By: COTEMA Dextrose (Dextrose 50 % 25 Gm/50 Ml Syringe) 25 gm IVPUSH Q15M PRN; Protocol PRN Reason: per Hypoglycemia Standing Ord. Docusate Sodium (Docusate Sodium 100 Mg Capsule) 100 mg PO DAILY PRN PRN Reason: Constipation Ezetimibe (Ezetimibe 10 Mg Tablet) 10 mg PO DAILY [facility] Last Admin: 02/02/23 08:18 Dose: 10 mg Documented By: COTEMA Enoxaparin Sodium (Enoxaparin Sodium 40 Mg/0.4 Ml Syringe) 40 mg SUBCUT Q24H [facility] Famotidine (Famotidine 20 Mg Tablet) 40 mg PO BEDTIME [facility] Last Admin: 02/01/23 21:22 Dose: 40 mg Documented By: DAVID Gabapentin (Gabapentin 100 Mg Capsule) 200 mg PO TID PRN PRN Reason: Pain, Mild (Pain Scale 1-3) Last Admin: 02/02/23 05:20 Dose: 200 mg Documented By: DAVID Glucose (Glucose Gel 15 Gm Gel..Gram.) 15 gm PO Q15M PRN; Protocol PRN Reason: per Hypoglycemia Standing Ord. Insulin Glargine (Insulin Glargine,Hum.Rec.Anlog 100 Unit/Ml 10 Ml Vial) 14 unit SUBCUT DAILY [facility] Last Admin: 02/02/23 08:19 Dose: 14 unit Documented By: CASSIE Insulin Human Lispro (Insulin Lispro 100 Unit/Ml 3 Ml Vial) 0 unit SUBCUT QIDACHS [facility]; Protocol Last Admin: 02/02/23 11:37 Dose: Not Given Documented By: CASSIE Non-Admin Reason: No Insulin Coverage Linezolid (Linezolid 600 Mg Tablet) 600 mg PO Q12H [facility] Last Admin: 02/02/23 11:24 Dose: 600 mg Documented By: MERYEMA Magnesium Hydroxide (Milk Of Magnesia 30 Ml Oral.Susp) 30 ml PO DAILY [facility] Last Admin: 02/02/23 08:18 Dose: 30 ml Documented By: COTEMA Ondansetron HCl (Ondansetron Hcl 4 Mg/2 Ml Vial) 4 mg IVPUSH Q8H PRN PRN Reason: Nausea and Vomiting Pharmacy Consult (Consult Rx Perform Med Rec) 1 each MISCELLANE ONCE PRN PRN Reason: Consult order Prednisone (Prednisone 5 Mg Tablet) 15 mg PO DAILY [facility] Last Admin: 02/02/23 08:18 Dose: 15 mg Documented By: COTNATALIE Prednisone (Prednisone 1 Mg Tablet) 4 mg PO DAILY [facility] Last Admin: 02/02/23 08:18 Dose: 4 mg Documented By: COTEMA Sodium Chloride (0.9 % Sodium Chloride Flush 3 Ml Syringe) 3 ml IVFLUSH QSHIFT [facility] Last Admin: 02/02/23 08:19 Dose: 3 ml Documented By: MERYEMA Torsemide (Torsemide 20 Mg Tablet) 40 mg PO DAILY [facility]; Protocol Last Admin: 02/02/23 08:18 Dose: 40 mg Documented By: CASSIE Labs 01/31/23 05:28 02/02/23 07:06 Labs: Laboratory Results - last 24 hr 02/01/23 02/01/23 02/02/23 16:08 20:16 07:06 Anion Gap 15 Estim Creat Clear Calc 32.0 Estimated GFR 34 POC Glucose 287 H 210 H Random Glucose 82 Calcium 8.7 D 02/02/23 02/02/23 07:25 11:28 Anion Gap Estim Creat Clear Calc Estimated GFR POC Glucose 97 142 H Random Glucose Calcium Microbiology Microbiology Results: Microbiology 01/30/23 13:49 Blood Culture - Preliminary Blood - Venous No growth after 48 hours. 01/30/23 13:40 Blood Culture - Preliminary Blood - Venous No growth after 48 hours. Assessment and Plan (1) Hyponatremia: Status: Acute (2) Generalized weakness: Status: Acute (3) Osteomyelitis: Status: Acute Plan d4 67yo F with L olecranon osteomyelitis started on IV ertapenem via [place] 01/26/23, DM2, HTN, PMR on chronic prednisone, CKD3, CHF with unknown EF presenting with generalized weakness/fatigue generalized weakness - perhaps side effect of ertapenem, d/c'ed per ID - other possibilities: osteomyelitis, hypoNa, IVA, chronic prednisone myopathy - low CRP + ESR; normal TSH, B12, folate - Neuro consult pending - improving; per PT home with serivces osteomyelitis L olecranon - per ID, changed to PO linezolid x 6 wk - will d/c Borja catheter IVA/CKD3 - resolved after IV fluids - resume torsemide + spironolactone hypoNa - hypovolemic; resolved after IV fluids HTN urgency CHF not in acute exac, unknown EF - resumed torsemide + spironolactone, continue carvedilol PMR - continue prednisone currently on 19 mg/d, outpt f/u with Dr Rubio [Rheum] DM2 with hyperglycemia - basal-bolus insulin VTE ppx - LMWH dispo - anticipate home with VNA In my clinical judgment, the patient requires continued inpatient hospitalization for the following reasons: removal of [place] Time Spent With Patient Time: Total time managing care of this patient today _45___ minutes. Quality Stroke Does the patient have a stroke diagnosis?: No VTE Prior VTE?: No VTE Risk Level:: Medical - moderate - high VTE Device Contraindication: Treatment Not Indicated VTE Drug Contraindication: N/A - Med Ordered
--- NOTE | 2023-02-02 13:21 | MHC.CM.PN ---
per rounds waitng on gynecological and urology consult prior to pt being dcd
--- NOTE | 2023-02-02 15:55 | P.DS_ITS ---
DS: Providers Provider Date of Service: 02/02/23 Date of admission: 01/30/23 18:26 Date of discharge: 02/02/23 Primary care physician: Allison Reyes MD Consults: 01/30/23 14:15 Consult to Infectious Diseases Routine Consulting Provider: Isabella Nash Reason for consultation: elbow osteo Has provider been notified: Yes 01/30/23 18:31 Consult to Neurology Routine Consulting Provider: [facility] Reason for consultation: Pt with acute onset lower leg weakness DS: Diagnosis Discharge Diagnosis (1) Hyponatremia: Status: Acute (2) Generalized weakness: Status: Acute (3) Osteomyelitis: Status: Acute (4) Acute kidney injury: Status: Acute (5) Hypertensive urgency: Status: Acute DS: Summary Hospital Course Hospital Course: from admission history and physical by hospitalist GARRET Lira, 01/30/23: Pt is a 67-year-old female with a PMH significant for?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 Patient was started on IV ertapenem last week for osteomyelitis of left elbow.? Patient and state that since then she has developed lower leg weakness that has progressively worsened with each day.? Prior to that patient was able to slowly ambulate with a walker on her own, but has not been able to ambulate for the past few days.? Her has had to carry her to her wheelchair.? Patient apparently is able to toilet herself at home, but today required a 2 assist.? Patient also complain of pain in her elbow and shortness of breath.? Patient denies any numbness and tingling in her legs or upper extremities, but has been experiencing some cramping in her legs.? Also has been experiencing some left upper quadrant pain for the past 6+ months.? Has had workup done elsewhere that has been unremarkable.? Patient has a history of heart failure with the last exacerbation in May of 2022.? Patient denies chest pain/pressure, palpitations.? No increase in lower leg edema. In the ED patient was afebrile, tachypneic up to 22, and hypertensive up to 196/88. Labs were significant for leukocytosis of 18.6, sodium of 130, BUN 42, creatinine 1.85, random glucose of 317, troponin 26.7, BNP 195. CXR showed no acute abnormality. Left elbox x-ray showed small joint effusion. EKG demonstrated normal sinus rhythm with no evidene of ST elevations or depressions. Pt was treated with oxycodone, ertapenem, IVF. Pt will be admitted to the hospital for treatment of IVA, 67yo F with L olecranon osteomyelitis started on IV ertapenem via [place] 01/26/23, DM2, HTN, PMR on chronic prednisone, CKD3, and CHF with unknown EF who presented with generalized weakness/fatigue and was admitted when found to have IVA/CKD3. Hospital course by problem: generalized weakness - perhaps side effect of ertapenem, d/c'ed per ID and changed to linezolid - other possibilities: osteomyelitis, hypoNa, IVA, chronic prednisone myopathy - low CRP + ESR; normal TSH, B12, folate - improving; per PT home with sevices osteomyelitis L olecranon - per ID, changed to PO linezolid x 6 wk, start date 02/01/23, end date 03/15/23 - Borja catheter discontinued IVA/CKD3 - resolved after IV fluids - resumed torsemide + spironolactone hypoNa - hypovolemic; resolved after IV fluids HTN urgency CHF not in acute exac, unknown EF - resumed torsemide + spironolactone, continue carvedilol She was discharged home with PT services. Time Spent with Patient Time attestation: Total time managing care of this patient today ___35_ minutes. Discharge coordination time: Greater than 30 minutes Quality: Safe Use of Opioids Does Pt have an Active Cancer Diagnosis on the Problem List?: No Quality: Stroke Does the patient have a stroke diagnosis?: No Physical Exam Vital Signs: Vital Signs: Last Vital Signs Temp 97.0 F 02/02/23 07:55 Pulse 63 02/02/23 07:55 Resp 17 02/02/23 07:55 BP 176/77 H 02/02/23 07:55 Pulse Ox 93 02/02/23 07:55 O2 Del Method Room Air 02/02/23 07:55 BMI result Body Mass Index 28.0 Gen: in no acute distress HEENT: sclera anicteric, moist mucus membranes Neck: supple Lungs: clear to auscultation bilaterally Heart: regular rate and rhythm, no murmurs Abd: soft, non-tender, non-distended Ext: no edema, scaly L elbow wound Skin: warm/well-perfused Neuro: alert and oriented x3, no focal findings Psych: appropriate affect DS: Data Data Completed and Pending Completed studies during hospitalization [Text1]: Laboratory Results WBC 13.4 X10*3/uL (4.8-10.8) H 01/31/23 05:28 RBC 4.33 X10*6/uL (4.20-5.50) 01/31/23 05:28 Hgb 12.6 g/dl (12.0-16.0) 01/31/23 05:28 Hct 37.1 % (37.0-47.0) 01/31/23 05:28 MCV 85.7 fL (80.0-98.0) 01/31/23 05:28 MCH 29.1 pg (27.0-33.0) 01/31/23 05:28 MCHC 34.0 g/dl (31.0-35.0) 01/31/23 05:28 RDW 15.2 % (11.0-16.0) 01/31/23 05:28 Plt Count 234 X10*3/uL (160-400) 01/31/23 05:28 MPV 10.4 fL (9.4-12.3) 01/31/23 05:28 Immature Gran % (Auto) 1.1 % (0.0-0.4) H 01/30/23 13:39 Neut % (Auto) 91.3 % (45-73) H 01/30/23 13:39 Lymph % (Auto) 3.7 % (20-40) L 01/30/23 13:39 [place] % (Auto) 3.5 % (2-11) 01/30/23 13:39 Eos % (Auto) 0.2 % (0-4) 01/30/23 13:39 Baso % (Auto) 0.2 % (0-2) 01/30/23 13:39 Lymph # (Auto) 0.7 X10*3/uL (1.2-4.9) L 01/30/23 13:39 [place] # (Auto) 0.7 X10*3/uL (0.1-1.2) 01/30/23 13:39 Eos # (Auto) 0.0 X10*3/uL (0.0-0.4) 01/30/23 13:39 Baso # (Auto) 0.0 X10*3/uL (0.0-0.2) 01/30/23 13:39 Abs Immat Gran (auto) 0.21 X10*3/uL (0.00-0.03) H 01/30/23 13:39 Absolute Neuts (auto) 17.0 x10*3/uL (2.0-8.3) H 01/30/23 13:39 Absolute Nucleated RBC 0.000 X10*3/uL (0.0-0.012) 01/31/23 05:28 Nucleated RBC % (auto) 0.0 /100WBC (0.0-0.2) 01/31/23 05:28 Smear Tech's Comments VERIFIED 01/30/23 13:39 ESR 7 MM/HR (0-20) 01/30/23 13:39 Sodium 137 mmol/L (135-145) 02/02/23 07:06 Potassium 3.8 mmol/L (3.3-5.1) 02/02/23 07:06 Chloride 101 mmol/L (96-108) 02/02/23 07:06 Carbon Dioxide 25 mmol/L (22-29) 02/02/23 07:06 Anion Gap 15 (12-20) 02/02/23 07:06 BUN 25 mg/dL (9-16) H 02/02/23 07:06 Creatinine 1.51 mg/dL (0.5-1.4) H 02/02/23 07:06 Estim Creat Clear Calc 32.0 02/02/23 07:06 Estimated GFR 34 02/02/23 07:06 POC Glucose 142 mg/dL (60-115) H 02/02/23 11:28 Random Glucose 82 mg/dL (60-115) 02/02/23 07:06 Lactic Acid 1.9 mmol/L (0.5-2.0) 01/30/23 13:39 Calcium 8.7 mg/dL (8.4-10.2) D 02/02/23 07:06 Magnesium 2.4 mg/dL (1.6-2.6) 01/30/23 13:39 Total Bilirubin 0.5 mg/dL (0.0-1.0) 01/30/23 13:39 Direct Bilirubin 0.1 mg/dL (0.0-0.5) 01/30/23 13:39 AST 15 U/L (5-31) 01/30/23 13:39 ALT 13 U/L (0-31) 01/30/23 13:39 Alkaline Phosphatase 99 U/L (39-117) 01/30/23 13:39 Total Creatine Kinase 13 U/L (26-140) L 01/30/23 13:39 Troponin I High Sens 21.0 ng/L (<3.5-17.0) H 01/30/23 19:23 C-Reactive Protein 1.05 mg/dL (< or = 0.50) H 01/30/23 13:39 B-Natriuretic Peptide 195 pg/mL (<100) H 01/30/23 13:39 Total Protein 5.9 g/dL (6.5-8.0) L 01/30/23 13:39 Albumin 3.4 g/dL (3.5-5.0) L 01/30/23 13:39 Vitamin B12 243 pg/mL (200-900) 01/31/23 05:28 Folate 7.3 ng/mL (> or = 4.0) 01/31/23 05:28 TSH 0.60 uIU/mL (0.32-4.0) 01/31/23 05:28 Urine Color Yellow 02/01/23 05:30 Urine Appearance Clear 02/01/23 05:30 Urine pH 7.0 (5.0-9.0) 02/01/23 05:30 Ur Specific [place] 1.010 (1.005-1.025) 02/01/23 05:30 Urine Protein 100 (2+) mg/dL (Neg-Trace) H 02/01/23 05:30 Urine Glucose (UA) Negative mg/dL (Negative) 02/01/23 05:30 Urine Ketones Negative mg/dL (Negative) 02/01/23 05:30 Urine Blood Negative (Negative) 02/01/23 05:30 Urine Nitrite Negative (Negative) 02/01/23 05:30 Ur Leukocyte Esterase Negative (Negative) 02/01/23 05:30 Urine RBC 3-5 /HPF (0-2) H 02/01/23 05:30 Urine WBC 0-5 /HPF (0-5) 02/01/23 05:30 Ur Squamous Epith Cells 0-2 /HPF (0-2) 02/01/23 05:30 Urine Bacteria None Seen (None Seen) 02/01/23 05:30 Hyaline Casts 0-2 /LPF (0-2) 02/01/23 05:30 Impressions Chest X-Ray 01/30/23 13:03 IMPRESSION: No acute abnormality. Elbow X-Ray 01/30/23 14:17 IMPRESSION: Small joint effusion. Discharge Plan Discharge Anticipated Discharge Date/Time: 02/02/23 18:16 Patient Disposition: Home Health Service Discharge Diagnosis: generalized weakness osteomyelitis L olecranon IVA/CKD3 hyponatremia HTN urgency Referrals: lAlison Reyes MD [Primary Care Provider] - 1 Week Isabella Nash MD [Physician] - 1 Week Discharge Medications: New linezolid 600 mg Tablet 600 mg PO Q12H Qty: 82 0RF Continued acetaminophen [Tylenol] 325 mg Tablet 650 mg PO Q6H PRN (Reason: Pain) torsemide 20 mg tablet 60 mg PO DAILY@0900 torsemide 20 mg tablet 40 mg PO DAILY@1200 famotidine 40 mg tablet 40 mg PO BEDTIME prednisone 5 mg tablet 15 mg PO DAILY Rx Instructions: TAKE WITH 4MG Claritin-D 24 Hour 10-240 mg Tablet Extended Release 24 Hr 1 tab PO DAILY prednisone 1 mg tablet 4 mg PO DAILY Rx Instructions: TAKE WITH 15 MG azelastine 137 mcg (0.1 %) aerosol,spray 1 spray intranasal BID clotrimazole 1 % cream 1 appl topical BID ezetimibe 10 mg tablet 10 mg PO DAILY spironolactone 25 mg tablet 25 mg PO BID gabapentin 100 mg capsule 200 mg PO TID PRN (Reason: Pain) Humalog U-100 Insulin 100 unit/mL cartridge 1 sliding scale dose subcut TIDAC magnesium hydroxide [Dulcolax (magnesium hydroxide)] 400 mg/5 mL suspension 400 mg PO DAILY insulin degludec [Tresiba FlexTouch U-100] 100 unit/mL (3 mL) insulin pen 20 unit subcut DAILY carvedilol 25 mg tablet 25 mg PO BIDWM Rx Instructions: must administer with a meal/food Victoza 3-Delmer 0.6 mg/0.1 mL (18 mg/3 mL) pen injector 1.8 mg subcut DAILY Discharge Orders: Discharge Order (Routine); Ordered 02/02/23 Ordered By: Roverto Alcantar Diet: Advance to usual diet Activity on Discharge: As tolerated Stand Alone Forms: Patient Portal Discharge page Care Plan Goals: recovery from infection Health Concerns: generalized weakness osteomyelitis L olecranon IVA/CKD3 hyponatremia HTN urgency Plan of Treatment: stop ertapenem take linezolid 600 mg by mouth twice daily for 6 weeks, end date 03/15/[address] Nash [Infectious Disease] in 1-2 weeks follow up with your manager fitness Dr Rubio in 2 weeks Please follow up with your primary care doctor within 1 week. Return to the hospital if you experience recurrent or worsening symptoms. Assessment: See Discharge Summary. Discharge Date/Time: 02/02/23 18:03
--- NOTE | 2023-02-02 15:59 | W.MHC.F2F ---
Service Date Service Date: 02/02/23 Encounter Date of encounter: 02/02/23 Reasons for Services Signs and symptoms assessed: attach PT note 01/31/23 Reason for penitentiary: medication management, medication treatment and teach disease management Reason for physical therapy: home safety and mobility, therapeutic exercises, restore joint function, gait/transfer training, assess need for DME, ADL training and energy conservation MD Overseeing Care: Allison Reyes Homebound: Leaving the home is medically contraindicated at this time without the asist of a device and/or another person due th the listed conditions above and below. Reason homebound: unsteady gait / fall risk and weakness related to hospital stay Homebound supporting statement: attach PT note 01/31/23 Certification: Based on the above findings, I certify that this patient is confined to the home and needs intermittent penitentiary care, physical therapy and/or speech therapy, or continues to need occupational therapy. The patient is under my care, and I have initiated the establishment of the plan of care. The patient will be followed by a physician who will periodically review the plan of care. Time Spent With Patient Time: Total time managing care of this patient today ____ minutes.
[2023-02-02 16:00] VITALS: BP 178/79; PULSE 67; RESP 18; TEMP 35.8; O2SAT 95
[2023-02-02 16:38] LABS: Glucose, Whole Blood 274 mg/dL (60-115)
[2023-02-02] MEDS: Insulin Lispro 100 UNIT/ML 3 ML VIAL SUBCUT (17:20)
[2023-02-02] MEDS: Enoxaparin Sodium 40 MG/0.4 ML SYRINGE SUBCUT (17:20)
== END 2023-02-02 18:03 | disposition home health service (06) | DRG 683 ==
LOC: HO.ED 14:28 → HO.EDOVER 18:33 → HO.S3 23:47
PROVIDERS: Hospitalist; Physician Assistant; Admitting Provider Student in an Organized Health Care Education/Training Program; Emergency Provider Emergency Medicine; PCP Family Medicine; Visit Provider Family Medicine
DX: N17.9 Acute kidney failure, unspecified (principal); E87.1 Hypo-osmolality and hyponatremia; I13.0 Hypertensive heart and chronic kidney disease with heart failure and stage 1 through stage 4 chronic kidney disease, or unspecified chronic kidney disease; M86.9 Osteomyelitis, unspecified; E11.69 Type 2 diabetes mellitus with other specified complication; N18.30 Chronic kidney disease, stage 3 unspecified; M35.3 Polymyalgia rheumatica; I16.0 Hypertensive urgency; E11.65 Type 2 diabetes mellitus with hyperglycemia; E11.22 Type 2 diabetes mellitus with diabetic chronic kidney disease; I50.9 Heart failure, unspecified; E86.1 Hypovolemia; F17.210 Nicotine dependence, cigarettes, uncomplicated; Z91.148 Patient's other noncompliance with medication regimen for other reason; Z71.6 Tobacco abuse counseling; Z79.4 Long term (current) use of insulin; Z79.52 Long term (current) use of systemic steroids; Z79.899 Other long term (current) drug therapy
CPT/HCPCS: 36415; 36589; 71045; 73080; 80048; 80076; 81001; 82550; 82607; 82746; 82947; 83605; 83735; 83880; 84443; 84484; 85025; 85027; 85652; 86140; 87040; 93005; 97162; 99285; J1335; J1650; J2185

== ENCOUNTER → 2023-01-30 12:26 | Outpatient (BNV) | payer MEDICARE, SELFPAY | PROVIDERS: Admitting Provider Student in an Organized Health Care Education/Training Program; Emergency Provider Emergency Medicine; PCP Family Medicine; Visit Provider Internal Medicine Cardiovascular Disease | DX: R53.1 Weakness (principal); E87.1 Hypo-osmolality and hyponatremia | CPT/HCPCS: 93010 ==

== ENCOUNTER 2023-01-30 18:26 | Outpatient (BNV) | payer MEDICARE, SELFPAY | END 2023-02-02 16:10 | PROVIDERS: Admitting Provider Student in an Organized Health Care Education/Training Program; Emergency Provider Emergency Medicine; PCP Family Medicine; Visit Provider Radiology Diagnostic Radiology | DX: Z45.89 Encounter for adjustment and management of other implanted devices (principal) | CPT/HCPCS: 36589 ==

== ENCOUNTER → 2023-01-30 18:26 | Outpatient (BNV) | payer MEDICARE, SELFPAY | PROVIDERS: Admitting Provider Student in an Organized Health Care Education/Training Program; Emergency Provider Emergency Medicine; PCP Family Medicine; Visit Provider Student in an Organized Health Care Education/Training Program | DX: I16.0 Hypertensive urgency (principal); M86.9 Osteomyelitis, unspecified; N17.9 Acute kidney failure, unspecified; E87.1 Hypo-osmolality and hyponatremia; R53.1 Weakness | CPT/HCPCS: 99223; 99232; 99233; 99239; G0180 ==

== ENCOUNTER → 2023-01-30 18:26 | Outpatient (BNV) | payer MEDICARE, SELFPAY | PROVIDERS: Admitting Provider Student in an Organized Health Care Education/Training Program; Emergency Provider Emergency Medicine; PCP Family Medicine; Visit Provider Internal Medicine | DX: M86.9 Osteomyelitis, unspecified (principal) | CPT/HCPCS: 99222 ==

== ENCOUNTER 2023-02-04 13:37 | Outpatient (AMB) | payer MEDICARE, SELFPAY ==
[2023-02-04 13:44] VITALS: BP 148/82; PULSE 50; O2SAT 95
--- NOTE | 2023-02-04 13:44 | MHC.OFFVIS ---
Intake Vital Signs 02/04/23 13:44 BP 148/82 H Pulse 50 Pulse Oximetry (%) 95 Intake Visit Reasons: central line inserted/abx started 01/27/2023 Allergies lisinopril Allergy (Severe, Verified 02/12/23 22:56) Cough morphine Adverse Reaction (Severe, Verified 02/12/23 22:56) Hallucinations HPI central line inserted/abx started 01/27/2023 HPI Details She has left olecranon bursitis for years. She has osteomyelitis concerns. She couldnt tolerate ertapenem due to confusion and was in hospital. PFSH Medical History Artery occlusion Cataract Diabetes Kidney disease Osteomyelitis Polymazia Smoker Surgical History H/O section H/O: hysterectomy History of total knee replacement History of urostomy Hx of cholecystectomy Social History Household Members: Spouse Housing: House Do you presently have visiting nurse or other home services: No Alcohol intake: never Patient Tobacco Use Status: Never used Tobacco Tobacco use type: Cigarette Cigarettes Per Day: 5 e-Cigarette/Vaping Use: Never Used Second Hand Smoke Exposure: No service: No Review of Systems Const All systems reviewed & are unremarkable except as noted in HPI and below Physical Exam Vital Signs: Last Vital Signs Pulse 50 02/04/23 13:44 BP 148/82 H 02/04/23 13:44 Pulse Ox 95 02/04/23 13:44 Const General: cooperative HEENT Head: Yes normal to inspection Face and sinus: Yes normal facial exam Mouth: Normal oral and palatal mucosa present Teeth and gingiva: dentition normal Eyes General: appearance normal, both eyes and all related structures Pupils: Equal, round and reactive pupils present Resp Effort & Inspection: normal respiratory effort Cardio Rate: regular rate Rhythm: regular rhythm GI Palpation (GI): Soft to palpation and nontender General: Yes no CVA tenderness Back/Spine/Pelvis Back: no CVA tenderness Skin General skin exam: no rashes or lesions noted Neuro General: moves all extremities Cranial nerves: Yes Equal, round and reactive pupils present Extrem Other: General: Yes normal to inspection Psych Appearance: grossly normal Assessment & Plan Assessment & Plan (1) Osteomyelitis: Comment: It is likely this is infectious etiology rather than malignancy or pressure ulcer but no organism. Code(s): M86.9 - Osteomyelitis, unspecified Plan: Finish with linezolid See in followup if desired. Orders: Orders Complete Blood Count Auto Diff 2 Weeks M86.9 - Osteomyelitis, unspecified Coding Level of Care Code Est Pt Level 3 (45289) Diagnoses Osteomyelitis M86.9
== END 2023-02-04 14:03 | disposition home or self-care (01) ==
LOC: HO.HID 13:37
PROVIDERS: PCP Family Medicine; Visit Provider Internal Medicine
DX: M86.9 Osteomyelitis, unspecified (principal)
CPT/HCPCS: 99213

== ENCOUNTER → 2023-02-04 13:37 | Outpatient (BNVA) | payer MEDICARE, OTHER, SELFPAY | PROVIDERS: PCP Family Medicine; Visit Provider Internal Medicine | DX: M86.9 Osteomyelitis, unspecified (principal); M70.22 Olecranon bursitis, left elbow; Y93.9 Activity, unspecified | CPT/HCPCS: 99212 ==

== ENCOUNTER 2023-02-09 10:30 | Emergency (ER) | payer MEDICARE, OTHER, SELFPAY ==
--- NOTE | ~2023-02-09 | CT_ITS ---
EXAMINATION: CT ABDOMEN AND PELVIS WITHOUT CONTRAST CLINICAL INFORMATION: Acute left flank pain COMPARISON: None available. TECHNIQUE: Multidetector volumetric imaging was performed from the superior aspect of the liver through the pubic symphysis. Sagittal and coronal reformatted images were obtained on the technologist's workstation. This CT examination was performed using dose optimization techniques as appropriate, variously including the following: *Automated exposure control *Adjustment of mA and/or kV according to patient size (this includes techniques or standardized protocols for targeted exams where dose is matched to indication/reason for exam; i.e. extremities or head) *Use of iterative reconstruction technique DLP: 483 mGy-cm FINDINGS: Of note the patient was scanned in the decubitus position. LUNG BASES: Left basilar atelectasis. Coronary artery calcifications. Elevation of left hemidiaphragm. LIVER, GALLBLADDER, AND BILIARY TREE: The liver is normal in size, shape, and attenuation. Subcentimeter hypodense focus in the right hepatic lobe, too small to characterize though statistically representing a cyst. A focus along the inferior margin of the right hepatic lobe measuring up to 2.4 cm, demonstrating fluid attenuation statistically representing a cyst. Calcification along the falciform ligament, nonspecific. No biliary ductal dilatation is present. The gallbladder is surgically absent. PANCREAS: Unremarkable. SPLEEN: Peripherally calcified focus along the anterior superior pole of the spleen. 8 mm splenule. ADRENAL GLANDS: Unremarkable. KIDNEYS AND URETERS: Comparative atrophy of the right kidney. No right-sided nephrolithiasis or hydronephrosis. Left extrarenal pelvis. Nonobstructive 2 mm calculus without hydronephrosis. BLADDER: Unremarkable. GASTROINTESTINAL TRACT: Colonic diverticulosis without acute diverticulitis. The small and large bowel are unremarkable. The appendix is unremarkable. ABDOMINAL WALL: Left fat filled inguinal hernia. LYMPH NODES: No enlarged lymph nodes per size criteria. VASCULAR: Abdominal aorta is nonaneurysmal. Moderate to severe atherosclerotic calcifications at the ostium of the bilateral renal arteries, celiac artery, superior mesenteric artery, common iliac bifurcation, and bilateral external iliac arteries. Left common iliac vascular stents noted and patent on this noncontrast examination. PELVIC VISCERA: Uterus is atrophy versus surgically absent. OSSEOUS STRUCTURES: Prominent osteopenia. Multilevel loss of vertebral height which may reflect arthritic changes versus compression deformities of uncertain chronicity involving T11, T12, L1, L4, and L5. Moderate to severe multilevel degenerative changes of the thoracolumbar and lumbosacral spine. CT/CT abdomen pelvis wo IV con IMPRESSION: 1. No acute process of the abdomen or pelvis identified. 2. Subcentimeter hypodense focus in the right hepatic lobe, too small to characterize though statistically representing a cyst. Additional cystic focus along the inferior margin of the right hepatic lobe 3. Status post cholecystectomy. 4. Atrophy of the left kidney. Left-sided nephrolithiasis without hydronephrosis. 5. Colonic diverticulosis without acute diverticulitis. 6. Left fat filled inguinal hernia. 7. Prominent osteopenia. Multilevel loss of vertebral height which may reflect arthritic changes versus compression deformities of uncertain chronicity involving T11, T12, L1, L4, and L5. Moderate to severe multilevel degenerative changes of the thoracolumbar and lumbosacral spine. 8. Moderate to severe atherosclerotic calcifications at the ostium of the bilateral renal arteries, celiac artery, superior mesenteric artery common iliac bifurcation, and bilateral external iliac arteries. Left common iliac vascular stents noted and patent on this noncontrast examination.
[2023-02-09 10:49] VITALS: BP 201/98; PULSE 85; RESP 16; O2SAT 97; BMI 28.7
[2023-02-09 11:15] LABS: MANUAL DIFF FLAG NO
[2023-02-09 11:21] LABS: Basophils Percent Auto 0.1 % (0-2); Eosinophils Percent Auto 0.1 % (0-4); Hematocrit 45.6 % (37.0-47.0); Hemoglobin 15.5 g/dl (12.0-16.0); Imm Gran Abs Auto 0.16 X10*3/uL (0.00-0.03); Imm Gran Pct Auto 0.8 % (0.0-0.4); Lymphocytes Percent Auto 5.4 % (20-40); Mean Corpuscular Hemoglobin 28.5 pg (27.0-33.0); Mean Platelet Volume 9.8 fL (9.4-12.3); Monocytes Absolute Auto 0.7 X10*3/uL (0.1-1.2); Monocytes Percent Auto 3.9 % (2-11); Neutrophils Percent Auto 89.7 % (45-73); Platelet Count 320 X10*3/uL (160-400); Red Blood Count 5.43 X10*6/uL (4.20-5.50)
[2023-02-09 11:28] LABS: INTERNATIONAL NORM RATIO 0.9 (0.9-1.1); Prothrombin Time 10.5 SEC (10.0-13.1)
[2023-02-09 11:30] LABS: Alanine Aminotransferase 20 U/L (0-31); Albumin Level 3.7 g/dL (3.5-5.0); Alkaline Phosphatase 104 U/L (39-117); Anion Gap 15 (12-20); Aspartate Amino Transferase 20 U/L (5-31); Bilirubin Direct 0.3 mg/dL (0.0-0.5); Bilirubin Total 1.2 mg/dL (0.0-1.0); Blood Urea Nitrogen 22 mg/dL (9-16); Carbon Dioxide 27 mmol/L (22-29); Chloride 93 mmol/L (96-108); Creatinine Clr Calc Pharmacy 33.2; Estimated Glomerular Filt Rate 35; Glucose Random 311 mg/dL (60-115); Potassium 3.4 mmol/L (3.3-5.1); Sodium 132 mmol/L (135-145); Total Protein 6.3 g/dL (6.5-8.0)
[2023-02-09 12:39] LABS: Appearance Urine Cloudy; Color Urine Yellow; Glucose Urine UA 250 mg/dL (Negative); Leukocyte Esterase Urine Trace (Negative); Nitrite Urine Negative (Negative); PH 5.5 (5.0-9.0); UMIC TRIGGER UACC YES; Urine Blood Small (1+) (Negative); Urine Ketones Negative (Negative); Urine Protein >=1000 (4+) mg/dL (Neg-Trace)
[2023-02-09 13:01] LABS: Bacteria Urine Trace (None Seen); UACC Culture Trigger YES
[2023-02-09 13:44] VITALS: BP 174/81; PULSE 80; RESP 18; O2SAT 94
[2023-02-09] MEDS: Ketorolac Tromethamine 15 MG/ML VIAL IVPUSH (13:55)
[2023-02-09] MEDS: Baclofen 10 MG TABLET PO (13:56)
[2023-02-09] MEDS: Acetaminophen 325 MG TABLET 975 MG PO (13:56)
[2023-02-09] MEDS: Gabapentin 300 MG CAPSULE PO (13:56)
--- NOTE | 2023-02-09 15:23 | ED.ABDPAIN ---
HPI - Abdominal Pain General Chief Complaint: Abdominal Pain Stated Complaint: L flank pain/Diff breathing Time Seen by Provider: 02/09/23 11:49 Source: patient Limitations: no limitations History of Present Illness HPI narrative: 67-year-old female presents with left-sided flank pain. The pain started proximal 1 week ago. The pain is constant. It is a sharp pain. Is worse with movement, twisting, certain positions. Does not radiate. It is not associated with nausea, vomiting, diarrhea, constipation. She denies any urinary frequency, urgency, dysuria or blood in her urine. She denies any recent trauma, fall, heavy lifting. Patient describes the pain is so severe she is unable to ambulate. Related Data Home Medications Medication Instructions Recorded Confirmed carvedilol 25 mg tablet 25 mg PO BIDWM 12/17/22 01/30/23 gabapentin 100 mg capsule 200 mg PO TID PRN Pain 12/17/22 01/30/23 insulin degludec 100 unit/mL (3 20 unit subcut DAILY 12/17/22 01/30/23 mL) subcutaneous pen (Tresiba FlexTouch U-100 insulin) insulin lispro 100 unit/mL 1 sliding scale dose subcut TIDAC 12/17/22 01/30/23 subcutaneous cartridge (Humalog U-100 Insulin) liraglutide 0.6 mg/0.1 mL (18 mg/3 1.8 mg subcut DAILY 12/17/22 01/30/23 mL) subcutaneous pen injector (Victoza 3-Delmer) magnesium hydroxide 400 mg/5 mL 400 mg PO DAILY 12/17/22 01/30/23 oral suspension (Dulcolax (magnesium hydroxide)) spironolactone 25 mg tablet 25 mg PO BID 12/17/22 01/30/23 acetaminophen 325 mg tablet 650 mg PO Q6H PRN Pain 01/30/23 01/30/23 (Tylenol) azelastine 137 mcg (0.1 %) nasal 1 spray intranasal BID 01/30/23 01/30/23 spray aerosol clotrimazole 1 % topical cream 1 appl topical BID 01/30/23 01/30/23 ezetimibe 10 mg tablet 10 mg PO DAILY 01/30/23 01/30/23 famotidine 40 mg tablet 40 mg PO BEDTIME 01/30/23 01/30/23 loratadine-pseudoephedrine ER 10 1 tab PO DAILY 01/30/23 01/30/23 mg-240 mg tablet,extended [id number] (Claritin-D 24 Hour) prednisone 1 mg tablet 4 mg PO DAILY 01/30/23 01/30/23 prednisone 5 mg tablet 15 mg PO DAILY 01/30/23 01/30/23 torsemide 20 mg tablet 40 mg PO DAILY@1200 01/30/23 01/30/23 torsemide 20 mg tablet 60 mg PO DAILY@0900 01/30/23 01/30/23 Previous Rx's Medication Instructions Recorded linezolid 600 mg tablet 600 mg PO Q12H #82 tabs 02/02/23 baclofen 10 mg tablet 10 mg PO BID PRN muscle spasm #10 02/09/23 tabs oxycodone 5 mg tablet 5 mg PO Q8H PRN pain #10 tabs 02/09/23 Allergies Allergy/AdvReac Type Severity Reaction Status Date / Time lisinopril Allergy Severe Cough Verified 02/04/23 13:44 morphine AdvReac Severe Hallucinati Verified 02/04/23 13:44 ons Review of Systems Review of Systems CONSTITUTIONAL: Denies weight loss, fever and chills. HEENT: Denies changes in vision and hearing. RESPIRATORY: Denies SOB and cough. CV: Denies palpitations no CP. GI: Denies abdominal pain, nausea, vomiting and diarrhea. : Denies dysuria and urinary frequency. MSK: Denies myalgia and joint pain. SKIN: Denies rash and pruritus. NEUROLOGICAL: Denies headache and syncope. PSYCHIATRIC: Denies recent changes in mood. Denies anxiety and depression. All other ROS are negative unless in HPI PMFSH Past Medical History Medical History Artery occlusion Cataract Diabetes Kidney disease Osteomyelitis Polymazia Smoker Surgical History H/O section H/O: hysterectomy History of total knee replacement History of urostomy Hx of cholecystectomy Social History Social History Household Members: Spouse Housing: House Do you presently have visiting nurse or other home services: No Patient Tobacco Use Status: Current everyday Tobacco user Tobacco use type: Cigarette Cigarettes Per Day: 5 e-Cigarette/Vaping Use: Never Used Second Hand Smoke Exposure: No Advance Directives: No Advance Directives Information Provided: Yes service: No Physical Exam ED Vital Signs: Vital Signs - 24 hr 02/09/23 10:49 02/09/23 13:44 02/09/23 15:55 Pulse Rate 85 80 Respiratory Rate 16 18 14 Blood Pressure 201/98 H 174/81 H Pulse Oximetry 97 94 Oxygen Delivery Method Room Air Room Air BMI result Body Mass Index 28.7 GEN: Well developed, no acute distress, alert, oriented HEENT: Normocephalic, atraumatic, normal external ears, nose appears normal, no oropharyngeal edema or exudates Eyes: Normal to appearance Neck: Supple, no lymphadenopathy Respiratory: Talks in complete sentences, no respiratory distress, clear to auscultation bilaterally Cardiovascular: Regular rate and rhythm, no murmurs rubs or gallops Abdomen: Soft, nontender, nondistended, no guarding, no rebound Back: + CVA tenderness, tenderness to light medium palpation the left paraspinous muscles in left lower back Extremities: No clubbing cyanosis or edema Neurologic: No focal neurologic deficits, cranial nerves 2-12 intact, strength is 5/5 bilaterally Skin: No rash Course Reevaluation(s) Reevaluation #1: Patient was signed out to me as left flank pain and otherwise all laboratory values being reported as chronically stable, CT scan that was outstanding I have reviewed and my interpretation is there is no evidence of diverticulitis, renal colic and otherwise my interpretation is in agreement with radiology's impression. Patient is otherwise discharged home and suspect that the underlying pain may be related to musculoskeletal pain associated with significant osteopenia which has affected multiple vertebral levels without identification acute compression fracture. Time: 17:19 Medical Decision Making Medical Decision Making MDM Narrative: 67-year-old female presents with left flank pain. Examination reveals tenderness to mild and medium palpation. I can see that this represents a true CVA tenderness. Most likely this is musculoskeletal however the differential diagnosis still could include pyelonephritis, ureterolithiasis, kidney stone, gastrointestinal, mesenteric, adenopathy. Plan will be to provide the patient with analgesia, muscle relaxer, topical treatment and imaging studies to rule out of a multitude of differential diagnoses. At this time, patient may require hospitalization just as much due to pain management as due to possible pathology. Differential Diagnosis Differential Diagnoses: The differential diagnosis associated with the presentation includes (See above) Admission/Observation Consideration of admission/observation: Escalation of care including admission/observation considered Lab Data MDM Lab Attestation statement: I reviewed the patient's lab results. 02/09/23 11:09 02/09/23 11:09 Labs: Lab Results 02/09/23 02/09/23 02/09/23 Range/Units 11:09 11:09 11:09 WBC 19.0 H (4.8-10.8) X10*3/uL RBC 5.43 D (4.20-5.50) X10*6/uL Hgb 15.5 D (12.0-16.0) g/dl Hct 45.6 D (37.0-47.0) % MCV 84.0 (80.0-98.0) fL MCH 28.5 (27.0-33.0) pg MCHC 34.0 (31.0-35.0) g/dl RDW 15.0 (11.0-16.0) % Plt Count 320 D (160-400) X10*3/uL MPV 9.8 (9.4-12.3) fL Immature Gran % (Auto) 0.8 H (0.0-0.4) % Neut % (Auto) 89.7 H (45-73) % Lymph % (Auto) 5.4 L (20-40) % [place] % (Auto) 3.9 (2-11) % Eos % (Auto) 0.1 (0-4) % Baso % (Auto) 0.1 (0-2) % Lymph # (Auto) 1.0 L (1.2-4.9) X10*3/uL [place] # (Auto) 0.7 (0.1-1.2) X10*3/uL Eos # (Auto) 0.0 (0.0-0.4) X10*3/uL Baso # (Auto) 0.0 (0.0-0.2) X10*3/uL Abs Immat Gran (auto) 0.16 H (0.00-0.03) X10*3/uL Absolute Neuts (auto) 17.0 H (2.0-8.3) x10*3/uL Absolute Nucleated RBC 0.000 (0.0-0.012) X10*3/uL Nucleated RBC % (auto) 0.0 (0.0-0.2) /100WBC PT 10.5 (10.0-13.1) SEC INR 0.9 (0.9-1.1) Sodium 132 L (135-145) mmol/L Potassium 3.4 (3.3-5.1) mmol/L Chloride 93 L (96-108) mmol/L Carbon Dioxide 27 (22-29) mmol/L Anion Gap 15 (12-20) BUN 22 H (9-16) mg/dL Creatinine 1.48 H (0.5-1.4) mg/dL Estim Creat Clear Calc 33.2 Estimated GFR 35 Random Glucose 311 H (60-115) mg/dL Calcium 9.0 (8.4-10.2) mg/dL Total Bilirubin 1.2 H (0.0-1.0) mg/dL Direct Bilirubin 0.3 (0.0-0.5) mg/dL AST 20 (5-31) U/L ALT 20 (0-31) U/L Alkaline Phosphatase 104 (39-117) U/L Total Protein 6.3 L (6.5-8.0) g/dL Albumin 3.7 (3.5-5.0) g/dL Urine Color Urine Appearance Urine pH (5.0-9.0) Ur Specific [place] (1.005-1.025) Urine Protein (Neg-Trace) mg/dL Urine Glucose (UA) (Negative) mg/dL Urine Ketones (Negative) mg/dL Urine Blood (Negative) Urine Nitrite (Negative) Ur Leukocyte Esterase (Negative) Urine RBC (0-2) /HPF Urine WBC (0-5) /HPF Ur Squamous Epith Cells (0-2) /HPF Urine Bacteria (None Seen) Hyaline Casts (0-2) /LPF Urine Yeast 02/09/23 Range/Units 12:29 WBC (4.8-10.8) X10*3/uL RBC (4.20-5.50) X10*6/uL Hgb (12.0-16.0) g/dl Hct (37.0-47.0) % MCV (80.0-98.0) fL MCH (27.0-33.0) pg MCHC (31.0-35.0) g/dl RDW (11.0-16.0) % Plt Count (160-400) X10*3/uL MPV (9.4-12.3) fL Immature Gran % (Auto) (0.0-0.4) % Neut % (Auto) (45-73) % Lymph % (Auto) (20-40) % [place] % (Auto) (2-11) % Eos % (Auto) (0-4) % Baso % (Auto) (0-2) % Lymph # (Auto) (1.2-4.9) X10*3/uL [place] # (Auto) (0.1-1.2) X10*3/uL Eos # (Auto) (0.0-0.4) X10*3/uL Baso # (Auto) (0.0-0.2) X10*3/uL Abs Immat Gran (auto) (0.00-0.03) X10*3/uL Absolute Neuts (auto) (2.0-8.3) x10*3/uL Absolute Nucleated RBC (0.0-0.012) X10*3/uL Nucleated RBC % (auto) (0.0-0.2) /100WBC PT (10.0-13.1) SEC INR (0.9-1.1) Sodium (135-145) mmol/L Potassium (3.3-5.1) mmol/L Chloride (96-108) mmol/L Carbon Dioxide (22-29) mmol/L Anion Gap (12-20) BUN (9-16) mg/dL Creatinine (0.5-1.4) mg/dL Estim Creat Clear Calc Estimated GFR Random Glucose (60-115) mg/dL Calcium (8.4-10.2) mg/dL Total Bilirubin (0.0-1.0) mg/dL Direct Bilirubin (0.0-0.5) mg/dL AST (5-31) U/L ALT (0-31) U/L Alkaline Phosphatase (39-117) U/L Total Protein (6.5-8.0) g/dL Albumin (3.5-5.0) g/dL Urine Color Yellow Urine Appearance Cloudy Urine pH 5.5 (5.0-9.0) Ur Specific [place] 1.020 (1.005-1.025) Urine Protein >=1000 (4+) H (Neg-Trace) mg/dL Urine Glucose (UA) 250 H (Negative) mg/dL Urine Ketones Negative (Negative) mg/dL Urine Blood Small (1+) H (Negative) Urine Nitrite Negative (Negative) Ur Leukocyte Esterase Trace H (Negative) Urine RBC 3-5 H (0-2) /HPF Urine WBC 6-10 H (0-5) /HPF Ur Squamous Epith Cells 11-20 (0-2) /HPF Urine Bacteria Trace (None Seen) Hyaline Casts 3-5 (0-2) /LPF Urine Yeast Present Leukocytosis has been present before. Going back to 01/27/2023 [place] [id number], [id number], [id number]. Creatinine shows CKD that is stable. Independent Interpretation I performed an independent interpretation of an: CT Scan (Abdomen pelvis: Constipation, new acute perforation or viscus injury) Radiology Impression Discussion of test interpretation with radiology: I have reviewed the radiologist's reading. Independent Historian Clinical information obtained from an independent historian. History obtained from or confirmed by: Spouse Prescription Management I considered prescription management with: Pain Medication and Antibiotic Chronic Conditions Patient?s care impacted by: Diabetes Medications Administered Discontinued Medications Generic Name Dose Route Start Last Admin Trade Name Pjq PRN Reason Stop Dose Admin Acetaminophen 975 mg 02/09/23 13:29 02/09/23 13:56 Acetaminophen 325 Mg Tablet PO 02/09/23 13:30 975 mg ONCE ONE Administration Baclofen 10 mg 02/09/23 13:31 02/09/23 13:56 Baclofen 10 Mg Tablet PO 02/09/23 13:32 10 mg ONCE ONE Administration Gabapentin 300 mg 02/09/23 13:29 02/09/23 13:56 Gabapentin 300 Mg Capsule PO 02/09/23 13:30 300 mg ONCE ONE Administration Ketorolac Tromethamine 15 mg 02/09/23 13:29 02/09/23 13:55 Ketorolac Tromethamine 15 Mg/Ml Vial IVPUSH 02/09/23 13:30 15 mg ONCE ONE Administration Discharge Plan Discharge Clinical Impression: Left flank pain, CKD (chronic kidney disease), Leukocytosis (leucocytosis), Osteopenia, Musculoskeletal pain Patient Disposition: Home, Self-Care Instructions: Chronic Kidney Disease (ED), Leukocytosis (ED), Flank Pain (ED) Additional Instructions: 1. Your pain is likely musculoskeletal in nature and related to decreased bone density with chronic compression fractures of your vertebral spine. You have been given prescriptions to alleviate this pain. 2. Resume all other home medications as prescribed. 3. Follow-up with your primary care doctor. Return to the ER for any worsening symptoms. Prescriptions: New baclofen 10 mg tablet 10 mg PO BID PRN (Reason: muscle spasm) Qty: 10 0RF oxycodone 5 mg tablet 5 mg PO Q8H PRN (Reason: pain) Qty: 10 0RF Rx Instructions: Partial Fill upon patient request. No Action acetaminophen [Tylenol] 325 mg Tablet 650 mg PO Q6H PRN (Reason: Pain) torsemide 20 mg tablet 60 mg PO DAILY@0900 torsemide 20 mg tablet 40 mg PO DAILY@1200 famotidine 40 mg tablet 40 mg PO BEDTIME prednisone 5 mg tablet 15 mg PO DAILY Rx Instructions: TAKE WITH 4MG Claritin-D 24 Hour 10-240 mg Tablet Extended Release 24 Hr 1 tab PO DAILY prednisone 1 mg tablet 4 mg PO DAILY Rx Instructions: TAKE WITH 15 MG azelastine 137 mcg (0.1 %) aerosol,spray 1 spray intranasal BID clotrimazole 1 % cream 1 appl topical BID ezetimibe 10 mg tablet 10 mg PO DAILY linezolid 600 mg Tablet 600 mg PO Q12H Qty: 82 0RF spironolactone 25 mg tablet 25 mg PO BID gabapentin 100 mg capsule 200 mg PO TID PRN (Reason: Pain) Humalog U-100 Insulin 100 unit/mL cartridge 1 sliding scale dose subcut TIDAC magnesium hydroxide [Dulcolax (magnesium hydroxide)] 400 mg/5 mL suspension 400 mg PO DAILY insulin degludec [Tresiba FlexTouch U-100] 100 unit/mL (3 mL) insulin pen 20 unit subcut DAILY carvedilol 25 mg tablet 25 mg PO BIDWM Rx Instructions: must administer with a meal/food Victoza 3-Delmer 0.6 mg/0.1 mL (18 mg/3 mL) pen injector 1.8 mg subcut DAILY Referrals: Allison Reyes MD [Primary Care Provider] - 2 days
[2023-02-09 15:55] VITALS: RESP 14
[2023-02-09] MEDS: Capsaicin 0.025% Cream 60 GM TUBE 1 APPL TOPICAL (17:38)
[2023-02-09 17:39] VITALS: BP 147/55; PULSE 61; RESP 18; TEMP 36.7; O2SAT 97
== END 2023-02-09 18:23 | disposition home or self-care (01) ==
PROVIDERS: Emergency Provider Emergency Medicine; PCP Family Medicine
DX: N18.9 Chronic kidney disease, unspecified (principal); M85.89 Other specified disorders of bone density and structure, multiple sites; M79.18 Myalgia, other site; R10.9 Unspecified abdominal pain; D72.829 Elevated white blood cell count, unspecified; E11.9 Type 2 diabetes mellitus without complications; F17.210 Nicotine dependence, cigarettes, uncomplicated; Z79.4 Long term (current) use of insulin; Z79.899 Other long term (current) drug therapy
CPT/HCPCS: 36415; 74176; 80048; 80076; 81001; 85025; 85610; 87086; 96374; 99284; J1885

== ENCOUNTER 2023-02-12 22:16 | Inpatient (IN) | payer MEDICARE, OTHER, SELFPAY ==
--- NOTE | ~2023-02-12 | CT_ITS ---
EXAMINATION: CT HEAD WITHOUT CONTRAST CLINICAL INFORMATION: Altered mental status COMPARISON: None available. TECHNIQUE: Contiguous axial imaging was performed from the skull base to vertex without intravenous administration of contrast. This CT examination was performed using dose optimization techniques as appropriate, variously including the following: *Automated exposure control *Adjustment of mA and/or kV according to patient size (this includes techniques or standardized protocols for targeted exams where dose is matched to indication/reason for exam; i.e. extremities or head) *Use of iterative reconstruction technique DLP: 814 mGy-cm FINDINGS: There is no evidence of acute intracranial hemorrhage or territorial infarction. Chronic white matter small vessel ischemic changes. No abnormal mass effect or midline shift is seen. Gagnon to white matter differentiation is well preserved. No extra-axial fluid collections are identified. The ventricles are normal in size. There is no abnormal attenuation within the brain parenchyma. The osseous structures and soft tissues are normal. The mastoid air cells and visualized portions of the paranasal sinuses are well aerated. Atherosclerotic calcifications are noted. CT/CT head/brain wo IV con IMPRESSION: 1. No acute intracranial pathology. 2. Chronic white matter small vessel ischemic changes.
--- NOTE | ~2023-02-12 | XR_ITS ---
EXAMINATION: XR HIP, RIGHT CLINICAL INFORMATION: Fall with right hip pain COMPARISON: None available. TECHNIQUE: Two views of the right hip. Frontal view of the pelvis. FINDINGS: Osteopenia. No fracture or dislocation. The hips are well aligned. Mild degenerative change of both hips with sclerosis and small osteophytes. The pelvic rim is intact. Left iliac vascular stent. Normal bowel gas pattern. XR/XR hip RT w PEL1V IMPRESSION: No fracture or malalignment. Mild degenerative changes of the hips.
--- NOTE | ~2023-02-12 | XR_ITS ---
EXAMINATION: XR CHEST CLINICAL INFORMATION: Generalized weakness. COMPARISON: Chest x-ray 01/30/2023 TECHNIQUE: Frontal view of the chest was obtained. 2330 hours FINDINGS: No significant abnormality is noted involving the heart, lungs, mediastinum, bony thorax or soft tissues. XR/XR chest 1V IMPRESSION: Unremarkable examination.
--- NOTE | ~2023-02-12 | XR_ITS ---
EXAMINATION: XR CHEST CLINICAL INFORMATION: Altered mental status. Question pneumonia. COMPARISON: Chest x-ray February 12, 2023 TECHNIQUE: Frontal view of the chest was obtained. FINDINGS: Cardiac silhouette is normal in size. Lungs are mildly hypoinflated. There is mild prominence of the central pulmonary vasculature, likely accentuated due to low lung volumes. No lobar consolidation. No pleural effusion or pneumothorax. XR/XR chest 1V IMPRESSION: No acute pulmonary pathology.
[2023-02-12 22:26] VITALS: BP 202/100; PULSE 80; O2SAT 96
[2023-02-12 22:42] LABS: Glucose, Whole Blood 265 mg/dL (60-115)
[2023-02-12 22:50] VITALS: BP 188/115; PULSE 89; RESP 18; TEMP 37.1; O2SAT 95; BMI 27.1
--- NOTE | 2023-02-12 22:59 | PC.NURSE ---
Addendum entered by Monica Millard 02/12/23 23:42: Healing Skin tear to left elbow. Addendum entered by Monica Millard 02/12/23 23:41: pt has butterfly stitches to Left side of chest. Original Note: Pt A&Ox3, reports nausea, decrease appetite, weakness, and a fall this morning, denies LOC or head strike. Pt was seen here at the beginning of week for similar symptoms. Pt has bruising to Left side of cheek, bilateral arms, skin tear to Right lower leg.
--- NOTE | 2023-02-12 23:14 | ED_ITS ---
HPI - Weakness General Chief complaint: Weakness Stated complaint: WEAKNESS NAUSEA Time Seen by Provider: 02/12/23 22:40 Source: patient Mode of arrival: ambulatory Limitations: no limitations History of Present Illness HPI Narrative: 67-year-old female present with generalized weakness, patient normally is bed ridden at home needs assistance for ambulation at home patient got out of bed going to the bathroom fell down complaining of right hip pain and right leg pain. No head injury, no LOC, no neck pain. No fever, no chills, no CP, no SOB, no abdominal pain. Related Data Home Medications Medication Instructions Recorded Confirmed carvedilol 25 mg tablet 25 mg PO BIDWM 12/17/22 01/30/23 gabapentin 100 mg capsule 200 mg PO TID PRN Pain 12/17/22 01/30/23 insulin degludec 100 unit/mL (3 20 unit subcut DAILY 12/17/22 01/30/23 mL) subcutaneous pen (Tresiba FlexTouch U-100 insulin) insulin lispro 100 unit/mL 1 sliding scale dose subcut TIDAC 12/17/22 01/30/23 subcutaneous cartridge (Humalog U-100 Insulin) liraglutide 0.6 mg/0.1 mL (18 mg/3 1.8 mg subcut DAILY 12/17/22 01/30/23 mL) subcutaneous pen injector (Victoza 3-Delmer) magnesium hydroxide 400 mg/5 mL 400 mg PO DAILY 12/17/22 01/30/23 oral suspension (Dulcolax (magnesium hydroxide)) spironolactone 25 mg tablet 25 mg PO BID 12/17/22 01/30/23 acetaminophen 325 mg tablet 650 mg PO Q6H PRN Pain 01/30/23 01/30/23 (Tylenol) azelastine 137 mcg (0.1 %) nasal 1 spray intranasal BID 01/30/23 01/30/23 spray aerosol clotrimazole 1 % topical cream 1 appl topical BID 01/30/23 01/30/23 ezetimibe 10 mg tablet 10 mg PO DAILY 01/30/23 01/30/23 famotidine 40 mg tablet 40 mg PO BEDTIME 01/30/23 01/30/23 loratadine-pseudoephedrine ER 10 1 tab PO DAILY 07/14/23 07/14/23 mg-240 mg tablet,extended [id number] (Claritin-D 24 Hour) prednisone 1 mg tablet 4 mg PO DAILY 01/30/23 01/30/23 prednisone 5 mg tablet 15 mg PO DAILY 01/30/23 01/30/23 torsemide 20 mg tablet 40 mg PO DAILY@1200 01/30/23 01/30/23 torsemide 20 mg tablet 60 mg PO DAILY@0900 01/30/23 01/30/23 Previous Rx's Medication Instructions Recorded linezolid 600 mg tablet 600 mg PO Q12H #82 tabs 02/02/23 baclofen 10 mg tablet 10 mg PO BID PRN muscle spasm #10 02/09/23 tabs oxycodone 5 mg tablet 5 mg PO Q8H PRN pain #10 tabs 02/09/23 Allergies Allergy/AdvReac Type Severity Reaction Status Date / Time lisinopril Allergy Severe Cough Verified 02/12/23 22:56 morphine AdvReac Severe Hallucinati Verified 02/12/23 22:56 ons Review of Systems Review of Systems: All other systems are reviewed and are negative Constitutional: Reports as per HPI and Reports no additional constitutional complaints Eyes: Reports as per HPI and Reports no additional eye complaints Reports system reviewed and no additional complaints, except as documented Cardiovascular: Reports as per HPI and Reports no additional cardiovascular complaints Respiratory: Reports as per HPI and Reports no additional respiratory complaints Gastrointestinal: Reports as per HPI and Reports no additional gastrointestinal complaints Genitourinary: Reports no additional female genitourinary complaints Musculoskeletal: Reports no additional musculoskeletal complaints Skin/Breast: Reports system reviewed and no additional complaints, except as docu Psychiatric: Reports no additional psychiatric complaints Endocrine: Reports no additional endocrine complaints Hematologic/Lymphatic: Reports no additional hematologic/lymphatic complaints Allergic/Immunologic: Reports no additional allergic/immunologic complaints Reports system reviewed and no additional complaints, except as documented and Reports Abnormal speech present [facility] Past Medical History Medical History Artery occlusion Cataract Diabetes Kidney disease Osteomyelitis Polymazia Smoker Surgical History H/O section H/O: hysterectomy History of total knee replacement History of urostomy Hx of cholecystectomy Social History Social History Household Members: Spouse Housing: House Do you presently have visiting nurse or other home services: No Alcohol intake: never Patient Tobacco Use Status: Current everyday Tobacco user Tobacco use type: Cigarette Cigarettes Per Day: 5 Smoked in Last 30 Days: No e-Cigarette/Vaping Use: Never Used Second Hand Smoke Exposure: No Use of substances other than those prescribed or required for medical reasons: No Advance Directives: No Advance Directives Information Provided: Yes service: No Physical Exam Vital Signs: Vital Signs: Last Vital Signs Temp 98.7 F 02/13/23 02:44 Pulse 93 02/13/23 02:44 Resp 20 02/13/23 02:44 BP 195/95 H 02/13/23 02:44 Pulse Ox 92 02/13/23 02:44 O2 Del Method Room Air 02/13/23 02:44 BMI result Body Mass Index 27.1 Vital signs have been reviewed as appeared to be correct. Blood pressure normal. Heart rate normal. Respiration rate normal. Temperature normal. Oxygen saturation normal. Appearance: Alert. Oriented X3. No acute distress. Head: Normal external exam. Normocephalic. Atraumatic. No Brooks signs noted. No raccoon eyes noted Eyes: PERRLA. EOMI. Conjunctiva and sclera normal. Eyelids normal. ENT: TM's Normal. Pharynx normal. Uvula midline. Moist mucous membranes. No trismus noted. No drooling noted. No muffled voice noted. Neck: Normal inspection. Neck supple. FROM. No adenopathy. Thyroid Normal. No meningeal signs. No neck mass noted. CVS: Normal heart rate and rhythm. Heart sound normal. No murmurs noted. Pulses normal throughout. Respiratory: No respiratory distress. Painless inspiration. Breath sounds normal. No wheezes/rales/rhonchi noted. Chest nontender. No accessory muscle usage noted or decreased air movement noted. Abdomen: Soft and nontender. Bowel sounds normal in all 4 quadrants. No distention noted. No organomegaly noted. No visible injury noted. Back: No CVA tenderness. Full range of motion noted. Skin: Skin warm and dry. Normal skin color. Normal skin turgor. No rashes/lesions/lacerations noted. Extremities: No lower extremity edema. Extremities exhibit normal range of motion. Extremities nontender. Neuro: Oriented X 3. Cranial nerve exam: II-XII are grossly intact No motor deficit. No sensory deficit. Reflexes normal. Course Course Course Narrative: 1. Leukocytosis (chronic) no source of infection today. 2. Chronic hyponatremia. 3. Chronic troponin elevation with no delta change or indication for ACS. 4. Microscopic hematuria with no evidence of UTI. Medications Administered Discontinued Medications Generic Name Dose Route Start Last Admin Trade Name Freq PRN Reason Stop Dose Admin Sodium Chloride 1,000 mls @ 999 mls/hr 02/12/23 23:18 02/13/23 01:30 Ns IV 02/13/23 00:18 Infused .Q1H1M ONE Infusion Medical Decision Making Differential Diagnosis Differential Diagnoses: The differential diagnosis associated with the presentation includes (Generalized weakness, failure to thrive, pneumonia, UTI, electrolyte abnormality, severe anemia, ACS,) Admission/Observation Consideration of admission/observation: Escalation of care including admission/observation considered Lab Data MDM Lab Attestation statement: I reviewed the patient's lab results. 02/12/23 23:59 02/12/23 23:59 Labs: Lab Results 02/12/23 02/12/23 02/12/23 Range/Units 22:29 23:59 23:59 WBC 18.5 H (4.8-10.8) X10*3/uL RBC 5.36 (4.20-5.50) X10*6/uL Hgb 15.3 (12.0-16.0) g/dl Hct 45.5 (37.0-47.0) % MCV 84.9 (80.0-98.0) fL MCH 28.5 (27.0-33.0) pg MCHC 33.6 (31.0-35.0) g/dl RDW 14.7 (11.0-16.0) % Plt Count 259 (160-400) X10*3/uL MPV 9.5 (9.4-12.3) fL Immature Gran % (Auto) Cancelled Neut % (Auto) Cancelled Lymph % (Auto) Cancelled Jay % (Auto) Cancelled Eos % (Auto) Cancelled Baso % (Auto) Cancelled Lymph # (Auto) Cancelled Jay # (Auto) Cancelled Eos # (Auto) Cancelled Baso # (Auto) Cancelled Abs Immat Gran (auto) Cancelled Absolute Neuts (auto) Cancelled Absolute Nucleated RBC 0.020 H (0.0-0.012) X10*3/uL Nucleated RBC % (auto) 0.1 (0.0-0.2) /100WBC Neutrophils % (Manual) 91 H (45-73) % Band Neutrophils % 2 L (3-5) % Lymphocytes % (Manual) 6 L (20-40) % Monocytes % (Manual) 1 L (2-11) % Abs Neuts (Manual) 17.2 H (2.0-8.3) X10*3/uL Lymphocytes # (Manual) 1.1 L (1.2-4.9) X10*3/uL Monocytes # (Manual) 0.2 (0.1-1.2) X10*3/uL Platelet Estimate NORMAL (NORMAL) Plt Morphology Comment NORMAL RBC Morphology NORMAL Sodium 132 L (135-145) mmol/L Potassium 3.6 (3.3-5.1) mmol/L Chloride 90 L (96-108) mmol/L Carbon Dioxide 26 (22-29) mmol/L Anion Gap 20 (12-20) BUN 30 H (9-16) mg/dL Creatinine 1.40 (0.5-1.4) mg/dL Estim Creat Clear Calc 34.1 Estimated GFR 37 POC Glucose 265 H (60-115) mg/dL Random Glucose 254 H (60-115) mg/dL Calcium 10.1 D (8.4-10.2) mg/dL Total Bilirubin 1.2 H (0.0-1.0) mg/dL Direct Bilirubin 0.4 (0.0-0.5) mg/dL AST 15 (5-31) U/L ALT 23 (0-31) U/L Alkaline Phosphatase 113 (39-117) U/L Troponin I High Sens (<3.5-17.0) ng/L Total Protein 6.6 (6.5-8.0) g/dL Albumin 3.9 (3.5-5.0) g/dL Lipase 10 (8-78) U/L Urine Color Urine Appearance Urine pH (5.0-9.0) Ur Specific Redbird (1.005-1.025) Urine Protein (Neg-Trace) mg/dL Urine Glucose (UA) (Negative) mg/dL Urine Ketones (Negative) mg/dL Urine Blood (Negative) Urine Nitrite (Negative) Ur Leukocyte Esterase (Negative) Urine RBC (0-2) /HPF Urine WBC (0-5) /HPF Ur Squamous Epith Cells (0-2) /HPF Urine Bacteria (None Seen) Hyaline Casts (0-2) /LPF 02/12/23 02/13/23 02/13/23 Range/Units 23:59 02:43 03:00 WBC (4.8-10.8) X10*3/uL RBC (4.20-5.50) X10*6/uL Hgb (12.0-16.0) g/dl Hct (37.0-47.0) % MCV (80.0-98.0) fL MCH (27.0-33.0) pg MCHC (31.0-35.0) g/dl RDW (11.0-16.0) % Plt Count (160-400) X10*3/uL MPV (9.4-12.3) fL Immature Gran % (Auto) Neut % (Auto) Lymph % (Auto) Jay % (Auto) Eos % (Auto) Baso % (Auto) Lymph # (Auto) Jay # (Auto) Eos # (Auto) Baso # (Auto) Abs Immat Gran (auto) Absolute Neuts (auto) Absolute Nucleated RBC (0.0-0.012) X10*3/uL Nucleated RBC % (auto) (0.0-0.2) /100WBC Neutrophils % (Manual) (45-73) % Band Neutrophils % (3-5) % Lymphocytes % (Manual) (20-40) % Monocytes % (Manual) (2-11) % Abs Neuts (Manual) (2.0-8.3) X10*3/uL Lymphocytes # (Manual) (1.2-4.9) X10*3/uL Monocytes # (Manual) (0.1-1.2) X10*3/uL Platelet Estimate (NORMAL) Plt Morphology Comment RBC Morphology Sodium (135-145) mmol/L Potassium (3.3-5.1) mmol/L Chloride (96-108) mmol/L Carbon Dioxide (22-29) mmol/L Anion Gap (12-20) BUN (9-16) mg/dL Creatinine (0.5-1.4) mg/dL Estim Creat Clear Calc Estimated GFR POC Glucose (60-115) mg/dL Random Glucose (60-115) mg/dL Calcium (8.4-10.2) mg/dL Total Bilirubin (0.0-1.0) mg/dL Direct Bilirubin (0.0-0.5) mg/dL AST (5-31) U/L ALT (0-31) U/L Alkaline Phosphatase (39-117) U/L Troponin I High Sens 35.8 H D 40.2 H (<3.5-17.0) ng/L Total Protein (6.5-8.0) g/dL Albumin (3.5-5.0) g/dL Lipase (8-78) U/L Urine Color Yellow Urine Appearance Clear Urine pH 6.5 (5.0-9.0) Ur Specific Redbird 1.015 (1.005-1.025) Urine Protein 300 (3+) H (Neg-Trace) mg/dL Urine Glucose (UA) 100 H (Negative) mg/dL Urine Ketones Negative (Negative) mg/dL Urine Blood Trace H (Negative) Urine Nitrite Negative (Negative) Ur Leukocyte Esterase Negative (Negative) Urine RBC 3-5 H (0-2) /HPF Urine WBC 0-5 (0-5) /HPF Ur Squamous Epith Cells 0-2 (0-2) /HPF Urine Bacteria None Seen (None Seen) Hyaline Casts 6-10 (0-2) /LPF Independent Interpretation I performed an independent interpretation of an: EKG (Normal sinus rhythm at 90 beats per minutes, normal axis deviation, normal intervals.) and Plain X-Ray (Chest: No acute intrathoracic pathology.) Radiology Impression Discussion of test interpretation with radiology: I have reviewed the radiologist's reading. Discharge Plan Discharge Clinical Impression: Generalized weakness, Leukocytosis Patient Disposition: Still a Patient Prescriptions: No Action acetaminophen [Tylenol] 325 mg Tablet 650 mg PO Q6H PRN (Reason: Pain) torsemide 20 mg tablet 60 mg PO DAILY@0900 torsemide 20 mg tablet 40 mg PO DAILY@1200 famotidine 40 mg tablet 40 mg PO BEDTIME prednisone 5 mg tablet 15 mg PO DAILY Rx Instructions: TAKE WITH 4MG Claritin-D 24 Hour 10-240 mg Tablet Extended Release 24 Hr 1 tab PO DAILY prednisone 1 mg tablet 4 mg PO DAILY Rx Instructions: TAKE WITH 15 MG azelastine 137 mcg (0.1 %) aerosol,spray 1 spray intranasal BID clotrimazole 1 % cream 1 appl topical BID ezetimibe 10 mg tablet 10 mg PO DAILY linezolid 600 mg Tablet 600 mg PO Q12H Qty: 82 0RF baclofen 10 mg tablet 10 mg PO BID PRN (Reason: muscle spasm) Qty: 10 0RF oxycodone 5 mg tablet 5 mg PO Q8H PRN (Reason: pain) Qty: 10 0RF Rx Instructions: Partial Fill upon patient request. spironolactone 25 mg tablet 25 mg PO BID gabapentin 100 mg capsule 200 mg PO TID PRN (Reason: Pain) Humalog U-100 Insulin 100 unit/mL cartridge 1 sliding scale dose subcut TIDAC magnesium hydroxide [Dulcolax (magnesium hydroxide)] 400 mg/5 mL suspension 400 mg PO DAILY insulin degludec [Tresiba FlexTouch U-100] 100 unit/mL (3 mL) insulin pen 20 unit subcut DAILY carvedilol 25 mg tablet 25 mg PO BIDWM Rx Instructions: must administer with a meal/food Victoza 3-Delmer 0.6 mg/0.1 mL (18 mg/3 mL) pen injector 1.8 mg subcut DAILY
--- NOTE | 2023-02-12 23:19 | ECG_ITS ---
Test Reason : WEAKNESS Blood Pressure : / mmHG Vent. Rate : 091 BPM Atrial Rate : 091 BPM P-R Int : 138 ms QRS Dur : 086 ms QT Int : 386 ms P-R-T Axes : 027 023 057 degrees QTc Int : 474 ms Sinus rhythm with Premature atrial complexes Nonspecific ST abnormality Abnormal ECG When compared with ECG of 30-JAN-2023 12:40, Nonspecific T wave abnormality no longer evident in Inferior leads Nonspecific T wave abnormality, improved in Anterolateral leads Referred By: Sita Burt Electronically Signed By:JAMAAL FINK MD
[2023-02-12] MEDS: 0.9 % Sodium Chloride 1,000 ML 999 ML IV (23:58)
[2023-02-13] VITALS (7 sets, daily range): BP systolic 125–197; BP diastolic 65–124; PULSE 64–93; RESP 19–22; TEMP 36.4–37.1; O2SAT 92–98
[2023-02-13 00:04] LABS: Hematocrit 45.5 % (37.0-47.0); Hemoglobin 15.3 g/dl (12.0-16.0); Mean Corpuscular HGB Conc 33.6 g/dl (31.0-35.0); Mean Corpuscular Hemoglobin 28.5 pg (27.0-33.0); Mean Corpuscular Volume 84.9 fL (80.0-98.0); Mean Platelet Volume 9.5 fL (9.4-12.3); NRBC Pct Auto 0.1 /100WBC (0.0-0.2); Platelet Count 259 X10*3/uL (160-400); Red Blood Count 5.36 X10*6/uL (4.20-5.50); Red Cell Distribution Width 14.7 % (11.0-16.0); WBC ABN SCTR FOR CBC 1
[2023-02-13 00:06] LABS: White Blood Count 18.5 X10*3/uL (4.8-10.8)
[2023-02-13 00:21] LABS: Alanine Aminotransferase 23 U/L (0-31); Albumin Level 3.9 g/dL (3.5-5.0); Alkaline Phosphatase 113 U/L (39-117); Anion Gap 20 (12-20); Aspartate Amino Transferase 15 U/L (5-31); Bilirubin Direct 0.4 mg/dL (0.0-0.5); Bilirubin Total 1.2 mg/dL (0.0-1.0); Blood Urea Nitrogen 30 mg/dL (9-16); Calcium 10.1 mg/dL (8.4-10.2); Carbon Dioxide 26 mmol/L (22-29); Chloride 90 mmol/L (96-108); Creatinine Clr Calc Pharmacy 34.1; Estimated Glomerular Filt Rate 37; Glucose Random 254 mg/dL (60-115); Lipase 10 U/L (8-78); Potassium 3.6 mmol/L (3.3-5.1); Sodium 132 mmol/L (135-145); Total Protein 6.6 g/dL (6.5-8.0)
[2023-02-13 00:24] LABS: Troponin-I High Sensitivity 35.8 ng/L (<3.5-17.0)
[2023-02-13 00:25] LABS: Band Neutrophils Percent 2 % (3-5); Lymphocytes Absolute Manual 1.1 X10*3/uL (1.2-4.9); Lymphocytes Percent Manual 6 % (20-40); Monocytes Absolute Manual 0.2 X10*3/uL (0.1-1.2); Monocytes Percent Manual 1 % (2-11); Neutrophils Absolute Manual 17.2 X10*3/uL (2.0-8.3); Neutrophils Percent Manual 91 % (45-73)
[2023-02-13 00:26] LABS: Platelet Estimate NORMAL (NORMAL); Platelet Morphology Comment NORMAL; RBC Morphology NORMAL
[2023-02-13 03:09] LABS: Appearance Urine Clear; Color Urine Yellow; Glucose Urine UA 100 mg/dL (Negative); Leukocyte Esterase Urine Negative (Negative); Nitrite Urine Negative (Negative); PH 6.5 (5.0-9.0); Specific Gravity - Urine 1.015 (1.005-1.025); UMIC TRIGGER UACC YES; Urine Blood Trace (Negative); Urine Ketones Negative (Negative); Urine Protein 300 (3+) mg/dL (Neg-Trace)
[2023-02-13 03:21] LABS: Bacteria Urine None Seen (None Seen); Squamous Epithelial Cell Urine 0-2 /HPF (0-2); WBC Urine 0-5 /HPF (0-5)
[2023-02-13 03:28] LABS: Troponin-I High Sensitivity 40.2 ng/L (<3.5-17.0)
--- NOTE | 2023-02-13 04:55 | PC.NURSE ---
Pt attempting to get out of bed, hard to redirect, after multiple attempts Pt calm and cooperative. Purewhic appiled, Pt reassured.
--- NOTE | 2023-02-13 05:30 | PC.NURSE ---
Pt assisted to bedside commode with 2 assist. Pt weak to get back in bed, assisted by staff.
--- NOTE | 2023-02-13 08:35 | MHC.CM.ED ---
Received consult for assessment of d/c needs: pt w/elevated BP, WBC and electrolyte abnormality: will discuss further evaluation/care plan w/provider to ensure clinical stability for PT and CM evals.
--- NOTE | 2023-02-13 08:47 | PC.NURSE ---
Addendum entered by Hyun Ledesma RN 02/13/23 09:01: pharmacy called about med rec/unverified meds Original Note: pt a&ox3 with some confusion. restless, teary but cooperative. reporting 9/10 body pain mostly from fall. asking for oxycodone. bandage reapplied to left elbow. pillow given for comfort and pt repositioned to right side. awaiting pharmacy to verify medications. BP high, all other vitals stable. wctm
--- NOTE | 2023-02-13 09:02 | PHA.MEDREC ---
Pharmacy Consult ? Medication Reconciliation Pharmacy has completed the medication reconciliation. Spoke to patient to confirm meds. Patient discharged 02/02/23. Went over meds and patient confirmed changes.
[2023-02-13] MEDS: carvediloL 25 MG TABLET PO ×2 (10:37→17:02)
[2023-02-13] MEDS: Baclofen 10 MG TABLET PO ×2 (10:37→21:35)
[2023-02-13] MEDS: predniSONE 5 MG TABLET 15 MG PO (10:37)
[2023-02-13] MEDS: Ezetimibe 10 MG TABLET PO (10:38)
[2023-02-13] MEDS: Torsemide 20 MG TABLET 60 MG PO (10:38)
--- NOTE | 2023-02-13 10:39 | MHC.CM.ED ---
Addendum entered by Leslie Benjamin 02/13/23 13:05: Pt continues to have elevated BP readings after administration of po antihypertensives: PT not able to eval pt d/t pt complaints of pain and inability to participate in eval. ED CM to discuss pt's continued HTN as basis for possible admission. Original Note: Received consult for assessment of d/c needs: Attempted to meet w/pt - interview limited by pt's c/o pain - stated hip and back and when questioned about quality and duration, pt stated, everything hurts, I can't even think. Pt visibly uncomfortable, moaning, grimacing and gripping side rail. RN in room w/medications. Pt presented to ED after a fall: no injury per imaging. Pt from home w/spouse: states no services and uses a walker. Spouse provides transportaion. When asked if ED CM could contact spouse for assistance w/d/c planning, pt stated, no, he'll just mess everything up, he doesn't know. Pt noted to be hypertensive w/SBP >190. ED CM to reapproach when pt's pain is better controlled. PT eval pending - did not see pt d/t present condition: pain/HTN
[2023-02-13 10:54] LABS: Glucose, Whole Blood 247 mg/dL (60-115)
[2023-02-13] MEDS: oxyCODONE HCl Immed Release 5 MG TABLET PO ×3 (11:23→21:35)
[2023-02-13] MEDS: Insulin Glargine,Hum.rec.anlog 100 UNIT/ML 10 ML VIAL 14 UNIT SUBCUT (11:27)
[2023-02-13] MEDS: predniSONE 1 MG TABLET 4 MG PO (11:38)
[2023-02-13 12:02] LABS: Glucose, Whole Blood 271 mg/dL (60-115)
[2023-02-13 13:08] LABS: Glucose, Whole Blood 298 mg/dL (60-115)
[2023-02-13] MEDS: Torsemide 20 MG TABLET 40 MG PO (13:09)
[2023-02-13] MEDS: Insulin Lispro 100 UNIT/ML 3 ML VIAL SUBCUT (13:10)
[2023-02-13 14:42] LABS: Glucose, Whole Blood 242 mg/dL (60-115)
[2023-02-13 16:30] LABS: Glucose, Whole Blood 112 mg/dL (60-115)
--- NOTE | 2023-02-13 18:42 | MHC.CM.ED ---
Pt sleeping. CM spoke with on telephone (Patric [phone]) to complete CM interview. Lives with . No HCP on file. Will try to complete when patient wakes. Pt has weekly [employer] for light houskeeping weekly via insurance per . Pt has W/C for outside and has a walker, which she hasn't been able to use due to increasing weakness. Vax x2/booster x1 per . PT evaluation pending. requests local STR facilities, but refuses [facility] in [place]. D/C plan : STR. Will need BLS transport. Pt has [facility], expect patient will be here over the weekend pending bed offer and insurance auth. CM will follow for discharge planning.
[2023-02-13] MEDS: Famotidine 20 MG TABLET 40 MG PO (21:35)
--- NOTE | 2023-02-13 21:41 | PC.NURSE ---
Pt brought to overflow, flailing in bed reporting pain, moaning and groaning. Attempt to give tylenol and pt refused. Pt given warm pack and medicated with PRN medications. unable to obtain vitals due to patient moving frequently.
--- NOTE | 2023-02-14 03:18 | PC.NURSE ---
Assumed care for patient at 2330. Patient sleeping , no c/o pain. Call zamorano within reach.
[2023-02-14 06:23] VITALS: BP 92/46; PULSE 93; RESP 17; TEMP 36.6; O2SAT 97
--- NOTE | 2023-02-14 06:24 | MHC.EDTECH ---
@0600 Patient was cleaned up, bedding changed, and kamar. While changing her, techs attempted to take off old EKG leads and Monitor leads. Most came off but V Lead in the center of her chest has become so adhered to her skin, attempting to remove it started to cause a skin tear X2 areas around/beneath the Lead. Tech finished care for the patient and then left the Lead on the patient- UNABLE TO REMOVE WITHOUT HARM. Tech reported it to Charge Nurse.
[2023-02-14 07:44] LABS: Glucose, Whole Blood 103 mg/dL (60-115)
[2023-02-14 08:00] VITALS: BP 120/70; PULSE 78; RESP 19; TEMP 36.5; O2SAT 92
--- NOTE | 2023-02-14 10:49 | PC.NURSE ---
Addendum entered by Flex Bradford RN 02/14/23 13:27: pt's visiting, assisted with convincing pt to take AM PO meds along with PRN pain meds. Per pt's pt will state she is not in pain even though pt is in pain. after taking PO meds pt vomited. Emesis was green bile with two meds noted. PA was informed, ?'ed IV nausea and pain med. Informed pa of insulin being held d/t pt not eating or drinking. Original Note: Pt restless, confused, correctly stated her name and , responded to staff but does not follow commands. Difficult to obtain BP d/t pt being restless and not staying still despite frequent redirection. Manual SBP 160s. Pt refusing food and all PO meds. Insulin held. Pt stating she is in pain. When assessed pt does not give details to pain and when asked pt stated she is not in pain. ED PA informed. PERRLA +, assessment very limited.
[2023-02-14] MEDS: oxyCODONE HCl Immed Release 5 MG TABLET PO (13:11)
[2023-02-14] MEDS: carvediloL 25 MG TABLET PO ×2 (13:11→18:07)
[2023-02-14] MEDS: Ezetimibe 10 MG TABLET PO (13:11)
[2023-02-14] MEDS: predniSONE 1 MG TABLET 4 MG PO (13:11)
[2023-02-14] MEDS: Torsemide 20 MG TABLET 60 MG PO (13:12)
[2023-02-14] MEDS: Acetaminophen 325 MG TABLET 650 MG PO (13:12)
[2023-02-14] MEDS: predniSONE 5 MG TABLET 15 MG PO (13:13)
[2023-02-14 13:16] LABS: Glucose, Whole Blood 176 mg/dL (60-115)
--- NOTE | 2023-02-14 14:41 | MHC.CM.ED ---
Patient remains in ER overflow. Physical therapy tried to see patient. Patient was flailing and not able to follow commands. This does not appear to be patient's baseline. Jennifer COMBS made aware. She will transfer patient to main ER and order more tests. Continue to monitor for d/c needs.
[2023-02-14 15:01] VITALS: BP 133/81; PULSE 84; RESP 18; TEMP 36; O2SAT 95
--- NOTE | 2023-02-14 15:05 | PC.NURSE ---
pt transferred to ED from overflow for change in mental status, per overflow pt is increasingly confused and agitated from baseline, was visiting this afternoon and assisted in medicating pt, episodes of vomiting. pt denies pain/nausea at this time. drowsy, but wakens with prompting, answered questions appropriately regarding pain and getting additional lab work and vitals when asked about current location/date pt didn't respond. pt oriented to person. per tech assisting in overflow overnight, pt appears to be at the same level of orientation/agitation when attempting to perform pt care tasks. bruising to skin/face, abrasion to left elbow, skin tear to sternal chest - per notes from ekg monitor lead. camera at bedside, bed locked in lowest position and alarmed. pt pending lab/CT/XR results and skin eval from ED provider.
[2023-02-14 15:07] LABS: Basophils Absolute Auto 0.1 X10*3/uL (0.0-0.2); Basophils Percent Auto 0.3 % (0-2); Eosinophils Percent Auto 0.1 % (0-4); Hematocrit 41.4 % (37.0-47.0); Hemoglobin 14.3 g/dl (12.0-16.0); Imm Gran Abs Auto 0.22 X10*3/uL (0.00-0.03); Imm Gran Pct Auto 1.2 % (0.0-0.4); Lymphocytes Absolute Auto 0.9 X10*3/uL (1.2-4.9); Lymphocytes Percent Auto 4.9 % (20-40); MANUAL DIFF FLAG SCAN; Mean Corpuscular HGB Conc 34.5 g/dl (31.0-35.0); Mean Corpuscular Hemoglobin 28.9 pg (27.0-33.0); Mean Corpuscular Volume 83.8 fL (80.0-98.0); Mean Platelet Volume 10.2 fL (9.4-12.3); Monocytes Absolute Auto 1.7 X10*3/uL (0.1-1.2); Neutrophils Absolute Auto 15.9 x10*3/uL (2.0-8.3); Neutrophils Percent Auto 84.5 % (45-73); Platelet Count 189 X10*3/uL (160-400); Red Blood Count 4.94 X10*6/uL (4.20-5.50); Red Cell Distribution Width 14.3 % (11.0-16.0); SCAN SMEAR FLAG 1; White Blood Count 18.8 X10*3/uL (4.8-10.8)
--- NOTE | 2023-02-14 15:10 | PC.NURSE ---
Keyana Pope (cousin) added as contact for pt - authorized us to talk to her regarding pt status, provider to call w update.
[2023-02-14 15:20] LABS: Lactic Acid 1.6 mmol/L (0.5-2.0)
[2023-02-14 15:37] LABS: Alanine Aminotransferase 20 U/L (0-31); Albumin Level 3.6 g/dL (3.5-5.0); Alkaline Phosphatase 109 U/L (39-117); Anion Gap 21 (12-20); Aspartate Amino Transferase 16 U/L (5-31); Bilirubin Total 1.1 mg/dL (0.0-1.0); Blood Urea Nitrogen 25 mg/dL (9-16); Calcium 8.9 mg/dL (8.4-10.2); Carbon Dioxide 21 mmol/L (22-29); Chloride 95 mmol/L (96-108); Creatinine Clr Calc Pharmacy 43.4; Estimated Glomerular Filt Rate 49; Glucose Random 196 mg/dL (60-115); Potassium 3.1 mmol/L (3.3-5.1); Sodium 134 mmol/L (135-145); Total Protein 6.2 g/dL (6.5-8.0)
[2023-02-14 16:18] LABS: SLIDE REVIEW VERIFIED
[2023-02-14 16:33] LABS: Appearance Urine Cloudy; Color Urine Yellow; Glucose Urine UA Negative (Negative); Leukocyte Esterase Urine Small (1+) (Negative); Nitrite Urine Negative (Negative); PH 6.5 (5.0-9.0); UMIC TRIGGER UACC YES; Urine Blood Moderate (2+) (Negative); Urine Ketones Trace mg/dL (Negative); Urine Protein 300 (3+) mg/dL (Neg-Trace)
[2023-02-14 16:42] LABS: Bacteria Urine 4+ (None Seen); Squamous Epithelial Cell Urine 0-2 /HPF (0-2); UACC Culture Trigger YES; WBC Urine >50 /HPF (0-5)
[2023-02-14] MEDS: Potassium Chloride ER 20 MEQ TAB.ER.PRT PO (18:06)
[2023-02-14] MEDS: cefTRIAXone sodium 2 GM in 0.9 % Sodium Chloride 50 ML IV (18:10)
--- NOTE | 2023-02-14 18:13 | P.HPHOSP_ITS ---
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 The patient open her eyes and looks around and might answer with one word but she is totally confused and altered and can not provide any meaningful history. Concerns about Osteomyelitis treatment as she was not on the Zyvox the last 2 days[place] [id number] with evidence of urine infection Admitted for treatment. Review of Systems Review of Systems: Yes Unobtainable due to mental status PMFSH Medical History Artery occlusion Cataract Diabetes Kidney disease Osteomyelitis Polymazia Smoker Surgical History H/O section H/O: hysterectomy History of total knee replacement History of urostomy Hx of cholecystectomy Social History Household Members: Spouse Housing: House Do you presently have visiting nurse or other home services: No Alcohol intake: never Patient Tobacco Use Status: Never used Tobacco Tobacco use type: Cigarette Cigarettes Per Day: 5 Smoked in Last 30 Days: No e-Cigarette/Vaping Use: Never Used Second Hand Smoke Exposure: No Use of substances other than those prescribed or required for medical reasons: No Advance Directives: No Advance Directives Information Provided: Yes Nutrition Risks: No Nutritional Risk service: No Meds Allergies Allergy/AdvReac Type Severity Reaction Status Date / Time lisinopril Allergy Severe Cough Verified 02/12/23 22:56 morphine AdvReac Severe Hallucinati Verified 02/12/23 22:56 ons Active Medications: Current Medications Acetaminophen (Acetaminophen 325 Mg Tablet) 650 mg PO Q4H PRN PRN Reason: Pain, Moderate(Pain Scale 4-6) Last Admin: 02/14/23 13:12 Dose: 650 mg Baclofen (Baclofen 10 Mg Tablet) 10 mg PO BID PRN PRN Reason: muscle spasm Last Admin: 02/13/23 21:35 Dose: 10 mg Carvedilol (Carvedilol 25 Mg Tablet) 25 mg PO BIDWM [facility] [place]; Protocol Last Admin: 02/14/23 18:07 Dose: 25 mg Ezetimibe (Ezetimibe 10 Mg Tablet) 10 mg PO DAILY [facility] Last Admin: 02/14/23 13:11 Dose: 10 mg Famotidine (Famotidine 20 Mg Tablet) 40 mg PO BEDTIME [facility] Last Admin: 02/13/23 21:35 Dose: 40 mg Insulin Glargine (Insulin Glargine,Hum.Rec.Anlog 100 Unit/Ml 10 Ml Vial) 14 unit SUBCUT DAILY [facility] Last Admin: 02/14/23 10:47 Dose: Not Given Insulin Human Lispro (Insulin Lispro 100 Unit/Ml 3 Ml Vial) 0 unit SUBCUT TIDAC [facility]; Protocol Last Admin: 02/14/23 13:14 Dose: Not Given Oxycodone HCl (Oxycodone Hcl Immed Release 5 Mg Tablet) 5 mg PO Q6H PRN PRN Reason: Pain, Moderate(Pain Scale 4-6) Last Admin: 02/14/23 13:11 Dose: 5 mg Prednisone (Prednisone 1 Mg Tablet) 4 mg PO DAILY [facility] Last Admin: 02/14/23 13:11 Dose: 4 mg Prednisone (Prednisone 5 Mg Tablet) 15 mg PO DAILY [facility] Last Admin: 02/14/23 13:13 Dose: 15 mg Torsemide (Torsemide 20 Mg Tablet) 40 mg PO DAILY@1200 [facility]; Protocol Last Admin: 02/14/23 13:13 Dose: Not Given Torsemide (Torsemide 20 Mg Tablet) 60 mg PO DAILY@0900 [facility]; Protocol Last Admin: 02/14/23 13:12 Dose: 60 mg Home Medications Medication Instructions Recorded Confirmed Last Taken Type carvedilol 25 mg tablet 25 mg PO BIDWM 12/17/22 02/13/23 02/12/23 History gabapentin 100 mg capsule 200 mg PO TID PRN Pain 12/17/22 02/13/23 Unknown History insulin degludec 100 unit/mL (3 20 unit subcut DAILY 12/17/22 02/13/23 02/12/23 History mL) subcutaneous pen (Tresiba FlexTouch U-100 insulin) insulin lispro 100 unit/mL 1 sliding scale dose subcut TIDAC 12/17/22 02/13/23 02/12/23 History subcutaneous cartridge (Humalog U-100 Insulin) liraglutide 0.6 mg/0.1 mL (18 mg/3 1.8 mg subcut DAILY 12/17/22 02/13/23 02/12/23 History mL) subcutaneous pen injector (Victoza 3-Delmer) magnesium hydroxide 400 mg/5 mL 400 mg PO DAILY 12/17/22 02/13/23 02/12/23 History oral suspension (Dulcolax (magnesium hydroxide)) spironolactone 25 mg tablet 25 mg PO BID 12/17/22 02/13/23 02/12/23 History acetaminophen 325 mg tablet 650 mg PO Q6H PRN Pain 01/30/23 02/13/23 Unknown History (Tylenol) ezetimibe 10 mg tablet 10 mg PO DAILY 01/30/23 02/13/23 02/12/23 History famotidine 40 mg tablet 40 mg PO BEDTIME 01/30/23 02/13/23 02/12/23 History loratadine-pseudoephedrine ER 10 1 tab PO DAILY PRN Allergy Symptoms 01/30/23 02/13/23 01/29/23 History mg-240 mg tablet,extended [id number] (Claritin-D 24 Hour) prednisone 1 mg tablet 4 mg PO DAILY 01/30/23 02/13/23 02/12/23 History prednisone 5 mg tablet 15 mg PO DAILY 01/30/23 02/13/23 02/12/23 History torsemide 20 mg tablet 40 mg PO DAILY@1200 01/30/23 02/13/23 02/12/23 History torsemide 20 mg tablet 60 mg PO DAILY@0900 01/30/23 02/13/23 02/12/23 History Physical Exam Vital Signs and Narrative: Vital Signs: Last Vital Signs Temp 96.8 F 02/14/23 15:01 Pulse 84 02/14/23 15:01 Resp 18 02/14/23 15:01 BP 133/81 02/14/23 15:01 Pulse Ox 95 02/14/23 15:01 O2 Del Method Room Air 02/14/23 15:01 BMI result Body Mass Index 27.1 Const: Other: Constitutional : altered, open eyes to verbal stimuli, not in distress Neck : Normal inspection, Supple Cardiovascular : RRR, no JVP, no lower extremity edema Respiratory : good bilateral air entry, no crackles, wheezes or rhonchi Gastrointestinal: soft, lax, Normal bowel sounds, Non tender Skin : Warm, Dry, LEft elbow chronic ulcer with mild warmth Neurological : altered mentation, not interactive, No focal deficit noted Results Labs 02/14/23 14:55 02/14/23 14:56 Labs: Laboratory Results - last 24 hr 02/14/23 02/14/23 02/14/23 07:41 13:12 14:55 MCV 83.8 MCH 28.9 MCHC 34.5 RDW 14.3 Plt Count 189 D MPV 10.2 Immature Gran % (Auto) 1.2 H Neut % (Auto) 84.5 H Lymph % (Auto) 4.9 L [place] % (Auto) 9.0 Eos % (Auto) 0.1 Baso % (Auto) 0.3 Lymph # (Auto) 0.9 L [place] # (Auto) 1.7 H Eos # (Auto) 0.0 Baso # (Auto) 0.1 Abs Immat Gran (auto) 0.22 H Absolute Neuts (auto) 15.9 H Absolute Nucleated RBC 0.000 Nucleated RBC % (auto) 0.0 Smear Tech's Comments VERIFIED Anion Gap Estim Creat Clear Calc Estimated GFR POC Glucose 103 176 H Random Glucose Lactic Acid Calcium Magnesium Total Bilirubin AST ALT Alkaline Phosphatase Total Protein Albumin Urine Color Urine Appearance Urine pH Ur Specific [place] Urine Protein Urine Glucose (UA) Urine Ketones Urine Blood Urine Nitrite Ur Leukocyte Esterase Urine RBC Urine WBC Ur Squamous Epith Cells Urine Bacteria Hyaline Casts Urine Yeast 02/14/23 02/14/23 02/14/23 14:55 14:56 16:28 MCV MCH MCHC RDW Plt Count MPV Immature Gran % (Auto) Neut % (Auto) Lymph % (Auto) [place] % (Auto) Eos % (Auto) Baso % (Auto) Lymph # (Auto) [place] # (Auto) Eos # (Auto) Baso # (Auto) Abs Immat Gran (auto) Absolute Neuts (auto) Absolute Nucleated RBC Nucleated RBC % (auto) Smear Tech's Comments Anion Gap 21 H Estim Creat Clear Calc 43.4 Estimated GFR 49 POC Glucose Random Glucose 196 H Lactic Acid 1.6 Calcium 8.9 D Magnesium 2.0 Total Bilirubin 1.1 H AST 16 ALT 20 Alkaline Phosphatase 109 Total Protein 6.2 L Albumin 3.6 Urine Color Yellow Urine Appearance Cloudy Urine pH 6.5 Ur Specific [place] 1.010 Urine Protein 300 (3+) H Urine Glucose (UA) Negative Urine Ketones Trace Urine Blood Moderate (2+) H Urine Nitrite Negative Ur Leukocyte Esterase Small (1+) H Urine RBC 11-20 H Urine WBC >50 H Ur Squamous Epith Cells 0-2 Urine Bacteria 4+ Hyaline Casts 3-5 Urine Yeast Present Imaging Radiologist's Impressions: Impressions Chest X-Ray 02/14/23 14:24 IMPRESSION: No acute pulmonary pathology. Head CT 02/14/23 14:49 IMPRESSION: 1. No acute intracranial pathology. 2. Chronic white matter small vessel ischemic changes. 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 Toxic encephalopathy 2/2 Urine infection Pending cultures Not septic On Ceftriaxone now modified diet LEft elbow OM restart Zyvox until Hyponatremia 2/2 medications close to baseline monitor BMP Hypokalemia give replacement and follow PMR Continue Prednsone 19 mg daily Type 2 DM SSI, lantus diabetic diet CKD 3 Stable disease DVT PPx Lovenox The patient will need 2 overnight hospital stay for treatment of infection pending improvement of mental status and safe discharge plan. Time Spent With Patient Time: Total time managing care of this patient today ____ minutes. Quality Stroke Does the patient have a stroke diagnosis?: No VTE Prior VTE?: No VTE Risk Level:: Medical - moderate - high VTE Device Contraindication: Treatment Not Indicated VTE Drug Contraindication: N/A - Med Ordered
--- NOTE | 2023-02-14 18:44 | PC.NURSE ---
attempted to call report, RN to call back after getting report.
[2023-02-14] MEDS: Linezolid 600 MG TABLET PO (18:49)
--- NOTE | 2023-02-14 18:50 | PC.NURSE ---
pt medicated per SEP, meds taken whole with water.
[2023-02-14 19:26] VITALS: PULSE 87; RESP 16; TEMP 36.5; O2SAT 97
[2023-02-14 19:41] VITALS: BP 148/86
--- NOTE | 2023-02-14 20:08 | PC.NURSE ---
pt refused lovenox injection. family at bedside. pt educated on med refusal
[2023-02-14 20:52] VITALS: PULSE 86; RESP 18; TEMP 36.6; O2SAT 94
[2023-02-14] MEDS: Famotidine 20 MG TABLET 40 MG PO (21:16)
[2023-02-14] MEDS: 0.9 % Sodium Chloride Flush 3 ML SYRINGE IVFLUSH (21:24)
[2023-02-14 21:42] LABS: Glucose, Whole Blood 223 mg/dL (60-115)
[2023-02-15] MEDS: oxyCODONE HCl Immed Release 5 MG TABLET PO ×2 (03:39→19:42)
[2023-02-15 04:00] VITALS: BP 130/68; PULSE 79; RESP 18; TEMP 36.2; O2SAT 94
[2023-02-15 04:50] VITALS: RESP 18
[2023-02-15 06:19] LABS: Hematocrit 41.2 % (37.0-47.0); Mean Corpuscular Hemoglobin 28.9 pg (27.0-33.0); Mean Corpuscular Volume 84.9 fL (80.0-98.0); Mean Platelet Volume 10.5 fL (9.4-12.3); Platelet Count 202 X10*3/uL (160-400); Red Blood Count 4.85 X10*6/uL (4.20-5.50); Red Cell Distribution Width 14.3 % (11.0-16.0); White Blood Count 16.5 X10*3/uL (4.8-10.8)
[2023-02-15] MEDS: Linezolid 600 MG TABLET PO ×2 (06:30→19:43)
[2023-02-15 06:34] LABS: Anion Gap 24 (12-20); Blood Urea Nitrogen 27 mg/dL (9-16); Calcium 9.1 mg/dL (8.4-10.2); Carbon Dioxide 21 mmol/L (22-29); Chloride 93 mmol/L (96-108); Estimated Glomerular Filt Rate 41; Glucose Random 224 mg/dL (60-115); Potassium 3.4 mmol/L (3.3-5.1); Sodium 135 mmol/L (135-145)
[2023-02-15] MEDS: ondansetron HCL 4 MG/2 ML VIAL IVPUSH (06:39)
[2023-02-15 07:12] VITALS: BP 198/102; PULSE 94; RESP 18; TEMP 36.6; O2SAT 95
[2023-02-15 07:33] LABS: Glucose, Whole Blood 245 mg/dL (60-115)
[2023-02-15] MEDS: predniSONE 5 MG TABLET 15 MG PO (07:39)
[2023-02-15] MEDS: Ezetimibe 10 MG TABLET PO (07:39)
[2023-02-15] MEDS: carvediloL 25 MG TABLET PO ×2 (07:39→16:25)
[2023-02-15] MEDS: Insulin Glargine,Hum.rec.anlog 100 UNIT/ML 10 ML VIAL 14 UNIT SUBCUT (07:39)
[2023-02-15] MEDS: predniSONE 1 MG TABLET 4 MG PO (07:39)
[2023-02-15] MEDS: 0.9 % Sodium Chloride Flush 3 ML SYRINGE IVFLUSH ×3 (07:40→19:46)
[2023-02-15] MEDS: Insulin Lispro 100 UNIT/ML 3 ML VIAL SUBCUT ×3 (07:41→16:25)
[2023-02-15] MEDS: amLODIPine Besylate 5 MG TABLET PO ×2 (08:51→12:46)
[2023-02-15] MEDS: Torsemide 20 MG TABLET 60 MG PO (08:51)
--- NOTE | 2023-02-15 11:00 | MHC.CM.PN ---
PT UNABLE TO PROVIDE RELIABLE HISTORY, CM CALLED PTS , DORIAN [phone] DORIAN PROVIDED THE FOLLOWING INFORMATION: PT LIVES AT HOME WITH HIM AND HE PROVIDES ASSISTANCE NEEDED PT HAS A WALKER FOR HOME AND WHEEL CHAIR FOR OUTSIDE THE HOME PT DOES NOT HAVE A HCP THEY HAVE A IT RISK AND ASSURANCE MANAGER THAT COMES IN ONCE PER WEEK FOR HOUSEKEEPING PCP: WANDER TILLMAN IMM DELIVERED DORIAN REPORTS THE PT IS MUCH MORE CONFUSED THAT USUAL HE REPORTS HE BELIEVES IT WOULD IMPROVE IF HER PREDNISONE WERE INCREASED HE HOPES PT WILL BE ABLE TO GO TO STR, HOWEVER HE IS AWARE SHE WOULD NEED A HCP AND PT EVAL PT HAS BEEN UNABLE TO PARTICIPATE WITH PT THUS FAR DCP: STR VS LTC CM HAS ASKED RN TO REPORT ANY IMPROVEMENT IN MENTATION SO THAT CM CAN ASSESS FOR ABILITY TO COMPLETE A HCP
[2023-02-15 11:18] LABS: Glucose, Whole Blood 216 mg/dL (60-115)
[2023-02-15 11:47] VITALS: BP 175/84; PULSE 86
--- NOTE | 2023-02-15 12:29 | P.PNIM_ITS ---
Subjective Subjective Date of Service: 02/15/23 Interval History: Seen and evaluated this morning Looks better , more alert and oriented BP elevated Cultures negative Review of Systems Review of Systems: Yes all other systems are reviewed and are negative Physical Exam Vital Signs: Vital Signs: Last Vital Signs Temp 97.8 F 02/15/23 07:12 Pulse 86 02/15/23 11:47 Resp 18 02/15/23 07:12 BP 175/84 H 02/15/23 11:47 Pulse Ox 95 02/15/23 07:12 O2 Del Method Room Air 02/15/23 07:12 BMI result Body Mass Index 27.1 Const: Other: Constitutional :alerti, not in distress Neck : Normal inspection, Supple Cardiovascular : RRR, no JVP, no lower extremity edema Respiratory : good bilateral air entry, no crackles, wheezes or rhonchi Gastrointestinal: soft, lax, Normal bowel sounds, Non tender Skin : Warm, Dry, LEft elbow chronic ulcer with mild warmth Neurological : alert, interactive, No focal deficit noted Objective Data Active Medications Acetaminophen (Acetaminophen 325 Mg Tablet) 650 mg PO Q4H PRN PRN Reason: Pain, Moderate(Pain Scale 4-6) Last Admin: 02/14/23 13:12 Dose: 650 mg Documented By: ALYSA Amlodipine Besylate (Amlodipine Besylate 5 Mg Tablet) 5 mg PO DAILY [facility]; Protocol Last Admin: 02/15/23 08:51 Dose: 5 mg Documented By: MAURA Baclofen (Baclofen 10 Mg Tablet) 10 mg PO BID PRN PRN Reason: muscle spasm Last Admin: 02/13/23 21:35 Dose: 10 mg Documented By: JADEN Carvedilol (Carvedilol 25 Mg Tablet) 25 mg PO BIDWM [facility]; Protocol Last Admin: 02/15/23 07:39 Dose: 25 mg Documented By: MAURA Ezetimibe (Ezetimibe 10 Mg Tablet) 10 mg PO DAILY [facility] Last Admin: 02/15/23 07:39 Dose: 10 mg Documented By: MAURA Enoxaparin Sodium (Enoxaparin Sodium 30 Mg/0.3 Ml Syringe) 30 mg SUBCUT Q24H [facility] Last Admin: 02/14/23 20:08 Dose: Not Given Documented By: RUBIN Non-Admin Reason: Patient Refused Famotidine (Famotidine 20 Mg Tablet) 40 mg PO BEDTIME [facility] Last Admin: 02/14/23 21:16 Dose: 40 mg Documented By: ADELAIDA Ceftriaxone Sodium 1 gm/ (Sodium Chloride) 50 mls @ 100 mls/hr IV Q24H [facility] Promethazine HCl 6.25 mg/ (Sodium Chloride) 50.25 mls @ 201 mls/hr IV ONCE PRN PRN Reason: Nausea Insulin Glargine (Insulin Glargine,Hum.Rec.Anlog 100 Unit/Ml 10 Ml Vial) 14 unit SUBCUT DAILY [facility] Last Admin: 02/15/23 07:39 Dose: 14 unit Documented By: MAURA Insulin Human Lispro (Insulin Lispro 100 Unit/Ml 3 Ml Vial) 0 unit SUBCUT TIDAC [facility]; Protocol Last Admin: 02/15/23 11:38 Dose: 4 unit Documented By: MAURA Linezolid (Linezolid 600 Mg Tablet) 600 mg PO Q12H [facility] Last Admin: 02/15/23 06:30 Dose: 600 mg Documented By: ADELAIDA Ondansetron HCl (Ondansetron Hcl 4 Mg/2 Ml Vial) 4 mg IVPUSH Q8H PRN PRN Reason: Nausea and Vomiting Last Admin: 02/15/23 06:39 Dose: 4 mg Documented By: ADELAIDA Oxycodone HCl (Oxycodone Hcl Immed Release 5 Mg Tablet) 5 mg PO Q6H PRN PRN Reason: Pain, Moderate(Pain Scale 4-6) Last Admin: 02/15/23 03:39 Dose: 5 mg Documented By: ADELAIDA Prednisone (Prednisone 1 Mg Tablet) 4 mg PO DAILY [facility] Last Admin: 02/15/23 07:39 Dose: 4 mg Documented By: MAURA Prednisone (Prednisone 5 Mg Tablet) 15 mg PO DAILY [facility] Last Admin: 02/15/23 07:39 Dose: 15 mg Documented By: MAURA Sodium Chloride (0.9 % Sodium Chloride Flush 3 Ml Syringe) 3 ml IVFLUSH QSHIFT [facility] Last Admin: 02/15/23 07:40 Dose: 3 ml Documented By: MAURA Torsemide (Torsemide 20 Mg Tablet) 40 mg PO DAILY@1200 [facility]; Protocol Last Admin: 02/14/23 13:13 Dose: Not Given Documented By: ALYSA Non-Admin Reason: n/v, pt refusing po Torsemide (Torsemide 20 Mg Tablet) 60 mg PO DAILY@0900 [facility]; Protocol Last Admin: 02/15/23 08:51 Dose: 60 mg Documented By: MAURA Labs 02/15/23 05:39 02/15/23 05:39 Labs: Laboratory Results - last 24 hr 02/14/23 02/14/23 02/14/23 13:12 14:55 14:55 MCV 83.8 MCH 28.9 MCHC 34.5 RDW 14.3 Plt Count 189 D MPV 10.2 Immature Gran % (Auto) 1.2 H Neut % (Auto) 84.5 H Lymph % (Auto) 4.9 L [place] % (Auto) 9.0 Eos % (Auto) 0.1 Baso % (Auto) 0.3 Lymph # (Auto) 0.9 L [place] # (Auto) 1.7 H Eos # (Auto) 0.0 Baso # (Auto) 0.1 Abs Immat Gran (auto) 0.22 H Absolute Neuts (auto) 15.9 H Absolute Nucleated RBC 0.000 Nucleated RBC % (auto) 0.0 Smear Tech's Comments VERIFIED Anion Gap Estim Creat Clear Calc Estimated GFR POC Glucose 176 H Random Glucose Lactic Acid 1.6 Calcium Magnesium Total Bilirubin AST ALT Alkaline Phosphatase Total Protein Albumin Urine Color Urine Appearance Urine pH Ur Specific [place] Urine Protein Urine Glucose (UA) Urine Ketones Urine Blood Urine Nitrite Ur Leukocyte Esterase Urine RBC Urine WBC Ur Squamous Epith Cells Urine Bacteria Hyaline Casts Urine Yeast 02/14/23 02/14/23 02/14/23 14:56 16:28 21:35 MCV MCH MCHC RDW Plt Count MPV Immature Gran % (Auto) Neut % (Auto) Lymph % (Auto) [place] % (Auto) Eos % (Auto) Baso % (Auto) Lymph # (Auto) [place] # (Auto) Eos # (Auto) Baso # (Auto) Abs Immat Gran (auto) Absolute Neuts (auto) Absolute Nucleated RBC Nucleated RBC % (auto) Smear Tech's Comments Anion Gap 21 H Estim Creat Clear Calc 43.4 Estimated GFR 49 POC Glucose 223 H Random Glucose 196 H Lactic Acid Calcium 8.9 D Magnesium 2.0 Total Bilirubin 1.1 H AST 16 ALT 20 Alkaline Phosphatase 109 Total Protein 6.2 L Albumin 3.6 Urine Color Yellow Urine Appearance Cloudy Urine pH 6.5 Ur Specific [place] 1.010 Urine Protein 300 (3+) H Urine Glucose (UA) Negative Urine Ketones Trace Urine Blood Moderate (2+) H Urine Nitrite Negative Ur Leukocyte Esterase Small (1+) H Urine RBC 11-20 H Urine WBC >50 H Ur Squamous Epith Cells 0-2 Urine Bacteria 4+ Hyaline Casts 3-5 Urine Yeast Present 02/15/23 02/15/23 02/15/23 05:39 05:39 07:25 MCV 84.9 MCH 28.9 MCHC 34.0 RDW 14.3 Plt Count 202 MPV 10.5 Immature Gran % (Auto) Neut % (Auto) Lymph % (Auto) [place] % (Auto) Eos % (Auto) Baso % (Auto) Lymph # (Auto) [place] # (Auto) Eos # (Auto) Baso # (Auto) Abs Immat Gran (auto) Absolute Neuts (auto) Absolute Nucleated RBC 0.000 Nucleated RBC % (auto) 0.0 Smear Tech's Comments Anion Gap 24 H Estim Creat Clear Calc 37.0 Estimated GFR 41 POC Glucose 245 H Random Glucose 224 H Lactic Acid Calcium 9.1 Magnesium Total Bilirubin AST ALT Alkaline Phosphatase Total Protein Albumin Urine Color Urine Appearance Urine pH Ur Specific [place] Urine Protein Urine Glucose (UA) Urine Ketones Urine Blood Urine Nitrite Ur Leukocyte Esterase Urine RBC Urine WBC Ur Squamous Epith Cells Urine Bacteria Hyaline Casts Urine Yeast 02/15/23 11:14 MCV MCH MCHC RDW Plt Count MPV Immature Gran % (Auto) Neut % (Auto) Lymph % (Auto) [place] % (Auto) Eos % (Auto) Baso % (Auto) Lymph # (Auto) [place] # (Auto) Eos # (Auto) Baso # (Auto) Abs Immat Gran (auto) Absolute Neuts (auto) Absolute Nucleated RBC Nucleated RBC % (auto) Smear Tech's Comments Anion Gap Estim Creat Clear Calc Estimated GFR POC Glucose 216 H Random Glucose Lactic Acid Calcium Magnesium Total Bilirubin AST ALT Alkaline Phosphatase Total Protein Albumin Urine Color Urine Appearance Urine pH Ur Specific [place] Urine Protein Urine Glucose (UA) Urine Ketones Urine Blood Urine Nitrite Ur Leukocyte Esterase Urine RBC Urine WBC Ur Squamous Epith Cells Urine Bacteria Hyaline Casts Urine Yeast Microbiology Microbiology Results: Microbiology 02/14/23 16:28 Urine Culture - Preliminary Urine Catheterized - [place] Catheter Culture in progress. 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 Toxic encephalopathy 2/2 Urine infection Pending cultures Not septic On Ceftriaxone now modified diet LEft elbow OM Continue Zyvox until ?03/15/23 Uncontrolled HTN Increase Amlodipine Con tinue BB and Spironolactone, Torsemide Hyponatremia 2/2 medications resolved monitor BMP Hypokalemia resolved PMR Continue Prednsone 19 mg daily Type 2 DM SSI, lantus diabetic diet CKD 3 Stable disease DVT PPx Lovenox The patient will need overnight hospital stay for treatment of infection pending improvement of mental status and safe discharge plan. Time Spent With Patient Time: Total time managing care of this patient today ____ minutes. Quality Stroke Does the patient have a stroke diagnosis?: No VTE Prior VTE?: No VTE Risk Level:: Medical - moderate - high VTE Device Contraindication: Treatment Not Indicated VTE Drug Contraindication: N/A - Med Ordered
[2023-02-15] MEDS: Acetaminophen 325 MG TABLET 650 MG PO ×2 (12:47→23:32)
[2023-02-15 15:17] VITALS: BP 176/77; PULSE 78; RESP 18; TEMP 37.2; O2SAT 95
[2023-02-15 16:19] LABS: Glucose, Whole Blood 180 mg/dL (60-115)
[2023-02-15] MEDS: cefTRIAXone sodium 1 GM in 0.9 % Sodium Chloride 50 ML IV (17:31)
[2023-02-15] MEDS: Enoxaparin Sodium 30 MG/0.3 ML SYRINGE SUBCUT (18:15)
[2023-02-15] MEDS: Famotidine 20 MG TABLET 40 MG PO (19:42)
[2023-02-15 20:00] VITALS: BP 148/75; PULSE 79; RESP 18; TEMP 36.1; O2SAT 95
[2023-02-15 21:16] LABS: Glucose, Whole Blood 194 mg/dL (60-115)
[2023-02-16 03:44] VITALS: BP 138/80; PULSE 74; RESP 16; TEMP 36; O2SAT 97
[2023-02-16] MEDS: ondansetron HCL 4 MG/2 ML VIAL IVPUSH (06:07)
[2023-02-16 07:30] LABS: Glucose, Whole Blood 166 mg/dL (60-115)
[2023-02-16 07:35] VITALS: BP 182/94; PULSE 83; RESP 18; TEMP 36.4; O2SAT 95
[2023-02-16] MEDS: Insulin Lispro 100 UNIT/ML 3 ML VIAL SUBCUT ×3 (08:19→16:52)
[2023-02-16] MEDS: Insulin Glargine,Hum.rec.anlog 100 UNIT/ML 10 ML VIAL 14 UNIT SUBCUT (08:19)
[2023-02-16] MEDS: predniSONE 1 MG TABLET 4 MG PO (08:21)
[2023-02-16] MEDS: Torsemide 20 MG TABLET 60 MG PO (08:21)
[2023-02-16] MEDS: carvediloL 25 MG TABLET PO ×2 (08:22→16:52)
[2023-02-16] MEDS: 0.9 % Sodium Chloride Flush 3 ML SYRINGE IVFLUSH ×3 (08:22→19:57)
[2023-02-16] MEDS: Ezetimibe 10 MG TABLET PO (08:22)
[2023-02-16] MEDS: predniSONE 5 MG TABLET 15 MG PO (08:22)
[2023-02-16] MEDS: amLODIPine Besylate 10 MG TABLET PO (08:22)
[2023-02-16] MEDS: Linezolid 600 MG TABLET PO ×2 (10:23→18:08)
[2023-02-16] MEDS: oxyCODONE HCl Immed Release 5 MG TABLET PO ×2 (10:29→19:57)
[2023-02-16 11:25] LABS: Glucose, Whole Blood 212 mg/dL (60-115)
--- NOTE | 2023-02-16 11:52 | P.PNIM_ITS ---
Subjective Subjective Date of Service: 02/16/23 Interval History: Seen and evaluated this morning more alert and oriented Cx growing GNR in urine BP elevated Review of Systems Review of Systems: Yes all other systems are reviewed and are negative Physical Exam Vital Signs: Vital Signs: Last Vital Signs Temp 97.5 F 02/16/23 07:35 Pulse 83 02/16/23 07:35 Resp 18 02/16/23 07:35 BP 182/94 H 02/16/23 07:35 Pulse Ox 95 02/16/23 07:35 O2 Del Method Room Air 02/16/23 07:35 BMI result Body Mass Index 27.1 Const: Other: Constitutional :alerti, not in distress Neck : Normal inspection, Supple Cardiovascular : RRR, no JVP, no lower extremity edema Respiratory : good bilateral air entry, no crackles, wheezes or rhonchi Gastrointestinal: soft, lax, Normal bowel sounds, Non tender Skin : Warm, Dry, LEft elbow chronic ulcer with mild warmth, multiple bruises Neurological : alert, interactive, No focal deficit noted Objective Data Active Medications Acetaminophen (Acetaminophen 325 Mg Tablet) 650 mg PO Q4H PRN PRN Reason: Pain, Moderate(Pain Scale 4-6) Last Admin: 02/15/23 23:32 Dose: 650 mg Documented By: RADHA Amlodipine Besylate (Amlodipine Besylate 10 Mg Tablet) 10 mg PO DAILY [facility]; Protocol Last Admin: 02/16/23 08:22 Dose: 10 mg Documented By: JOSE Baclofen (Baclofen 10 Mg Tablet) 10 mg PO BID PRN PRN Reason: muscle spasm Last Admin: 02/13/23 21:35 Dose: 10 mg Documented By: JADEN Carvedilol (Carvedilol 25 Mg Tablet) 25 mg PO BIDWM [facility]; Protocol Last Admin: 02/16/23 08:22 Dose: 25 mg Documented By: JOSE Ezetimibe (Ezetimibe 10 Mg Tablet) 10 mg PO DAILY [facility] Last Admin: 02/16/23 08:22 Dose: 10 mg Documented By: JOSE Enoxaparin Sodium (Enoxaparin Sodium 30 Mg/0.3 Ml Syringe) 30 mg SUBCUT Q24H [facility] Last Admin: 02/15/23 18:15 Dose: 30 mg Documented By: MAURA Famotidine (Famotidine 20 Mg Tablet) 40 mg PO BEDTIME [facility] Last Admin: 02/15/23 19:42 Dose: 40 mg Documented By: RADHA Ceftriaxone Sodium 1 gm/ (Sodium Chloride) 50 mls @ 100 mls/hr IV Q24H [facility] Last Infusion: 02/15/23 18:01 Dose: 0 mls/hr Documented By: MAURA Promethazine HCl 6.25 mg/ (Sodium Chloride) 50.25 mls @ 201 mls/hr IV ONCE PRN PRN Reason: Nausea Insulin Glargine (Insulin Glargine,Hum.Rec.Anlog 100 Unit/Ml 10 Ml Vial) 14 unit SUBCUT DAILY [facility] Last Admin: 02/16/23 08:19 Dose: 14 unit Documented By: JOSE Insulin Human Lispro (Insulin Lispro 100 Unit/Ml 3 Ml Vial) 0 unit SUBCUT TIDAC [facility]; Protocol Last Admin: 02/16/23 08:19 Dose: 2 unit Documented By: JOSE Linezolid (Linezolid 600 Mg Tablet) 600 mg PO Q12H [facility] Last Admin: 02/16/23 10:23 Dose: 600 mg Documented By: JOSE Ondansetron HCl (Ondansetron Hcl 4 Mg/2 Ml Vial) 4 mg IVPUSH Q8H PRN PRN Reason: Nausea and Vomiting Last Admin: 02/16/23 06:07 Dose: 4 mg Documented By: RADHA Oxycodone HCl (Oxycodone Hcl Immed Release 5 Mg Tablet) 5 mg PO Q6H PRN PRN Reason: Pain, Moderate(Pain Scale 4-6) Last Admin: 02/16/23 10:29 Dose: 5 mg Documented By: JOSE Prednisone (Prednisone 1 Mg Tablet) 4 mg PO DAILY [facility] Last Admin: 02/16/23 08:21 Dose: 4 mg Documented By: JOSE Prednisone (Prednisone 5 Mg Tablet) 15 mg PO DAILY [facility] Last Admin: 02/16/23 08:22 Dose: 15 mg Documented By: JOSE Sodium Chloride (0.9 % Sodium Chloride Flush 3 Ml Syringe) 3 ml IVFLUSH QSHICHI [facility] Last Admin: 02/16/23 08:22 Dose: 3 ml Documented By: JOSE Torsemide (Torsemide 20 Mg Tablet) 40 mg PO DAILY@1200 [facility]; Protocol Last Admin: 02/14/23 13:13 Dose: Not Given Documented By: ALYSA Non-Admin Reason: n/v, pt refusing po Torsemide (Torsemide 20 Mg Tablet) 60 mg PO DAILY@0900 [facility]; Protocol Last Admin: 02/16/23 08:21 Dose: 60 mg Documented By: JOSE Labs 02/15/23 05:39 02/15/23 05:39 Labs: Laboratory Results - last 24 hr 02/15/23 02/15/23 02/16/23 16:15 20:13 07:10 POC Glucose 180 H 194 H 166 H 02/16/23 11:03 POC Glucose 212 H Microbiology Microbiology Results: Microbiology 02/14/23 16:28 Urine Culture - Preliminary Urine Catheterized - [place] Catheter Gram negative kamala 02/14/23 14:55 Blood Culture - Preliminary Blood - Venous No growth after 24 hours. 02/14/23 14:55 Blood Culture - Preliminary Blood - Venous No growth after 24 hours. 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 Toxic encephalopathy 2/2 Urine infection resolving GNR in urine cultures On Ceftriaxone now modified diet recurrent reorientation LEft elbow OM Continue Zyvox until ?03/15/23 Uncontrolled HTN Increase Amlodipine to 10mg Continue BB and Spironolactone, Torsemide Hyponatremia 2/2 medications resolved monitor BMP Hypokalemia resolved PMR Continue Prednsone 19 mg daily Type 2 DM SSI, lantus diabetic diet CKD 3 Stable disease DVT PPx Lovenox The patient will need overnight hospital stay for treatment of infection pending improvement of mental status and safe discharge plan. Time Spent With Patient Time: Total time managing care of this patient today ____ minutes. Quality Stroke Does the patient have a stroke diagnosis?: No VTE Prior VTE?: No VTE Risk Level:: Medical - moderate - high VTE Device Contraindication: Treatment Not Indicated VTE Drug Contraindication: N/A - Med Ordered
--- NOTE | 2023-02-16 13:10 | MHC.CM.PN ---
Addendum entered by Mariaelena Escalera 02/16/23 13:50: COPY OF HCP OBTAINED FROM [facility] AND ATTACHED TO CHART IN [facility] Original Note: EMR REVIEWED AND PER MD ROUNDS, PT NOT MEDICALLY CLEARED FOR DC. (CONTINUES WITH AMS BUT IMPROVING SLOWLY, AWAITING REPEAT PT EVAL) CM SENT FAX FOR [facility] INFORMATION MANAGEMENT TO REQUEST A COPY OF A HCP IF ONE IS IN EXISTENCE. CM WILL CONTINUE TO FOLLOW FOR DC NEEDS/PLAN.
[2023-02-16 15:18] VITALS: BP 179/85; PULSE 86; RESP 18; TEMP 36.1; O2SAT 97
--- NOTE | 2023-02-16 16:13 | P.CDIM_ITS ---
PROVIDER RESPONSE TEXT: To clarify, the appropriate diagnosis supported by the clinical indicators: Chronic stable condition QUERY TEXT: PHYSICIAN'S DOCUMENTATION REQUEST Date of Query: 02/16/2023 10:01 AM EDT Patient Name: Kath Vigil Admit Date: 02/14/2023 Dear Cristian Sharp, A review of the medical record indicates additional documentation may be needed. Please review below and update the documentation accordingly. 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 Clarify which of the following accurately represents the acuity of the Osteomyelitis: Acute Acute on chronic Chronic stable condition Other (explain)Clinically unable to determine (explain)Thank you, Tiana Arthur, CCS, CDIS Use of terms such as suspected, likely, concern for, or probable (associated with a specific diagnosi s that is being evaluated, monitored, or treated as if it exists) are acceptable and can be coded in the inpatient se tting, when documented at the time of discharge. Please use your independent medical judgment in providing your response. THIS QUERY IS PART OF THE PERMANENT MEDICAL RECORD
[2023-02-16 16:35] LABS: Glucose, Whole Blood 232 mg/dL (60-115)
[2023-02-16] MEDS: Enoxaparin Sodium 30 MG/0.3 ML SYRINGE SUBCUT (18:08)
[2023-02-16] MEDS: cefTRIAXone sodium 1 GM in 0.9 % Sodium Chloride 50 ML IV (18:08)
[2023-02-16 19:35] VITALS: BP 106/71; PULSE 69; RESP 16; TEMP 36; O2SAT 95
[2023-02-16] MEDS: Baclofen 10 MG TABLET PO (19:56)
[2023-02-16] MEDS: Famotidine 20 MG TABLET 40 MG PO (19:56)
[2023-02-16 21:02] VITALS: RESP 18
[2023-02-16 21:09] LABS: Glucose, Whole Blood 99 mg/dL (60-115)
[2023-02-17 03:53] VITALS: BP 114/72; PULSE 84; RESP 20; TEMP 36; O2SAT 95
[2023-02-17 07:13] LABS: Glucose, Whole Blood 95 mg/dL (60-115)
[2023-02-17] MEDS: Linezolid 600 MG TABLET PO ×2 (07:33→18:31)
[2023-02-17] MEDS: carvediloL 25 MG TABLET PO ×2 (07:33→16:49)
[2023-02-17] MEDS: 0.9 % Sodium Chloride Flush 3 ML SYRINGE IVFLUSH ×2 (07:33→16:49)
[2023-02-17] MEDS: Ezetimibe 10 MG TABLET PO (07:33)
[2023-02-17] MEDS: amLODIPine Besylate 10 MG TABLET PO (07:34)
[2023-02-17] MEDS: predniSONE 1 MG TABLET 4 MG PO (07:35)
[2023-02-17] MEDS: predniSONE 5 MG TABLET 15 MG PO (07:35)
[2023-02-17] MEDS: Torsemide 20 MG TABLET 60 MG PO (07:39)
[2023-02-17 07:51] VITALS: BP 149/79; PULSE 74; RESP 16; TEMP 36.2; O2SAT 95
[2023-02-17 10:01] VITALS: BP 149/79; PULSE 74; O2SAT 95
[2023-02-17] MEDS: Baclofen 10 MG TABLET PO (10:14)
[2023-02-17] MEDS: oxyCODONE HCl Immed Release 5 MG TABLET PO (10:15)
[2023-02-17] MEDS: Acetaminophen 325 MG TABLET 650 MG PO (10:16)
--- NOTE | 2023-02-17 11:00 | P.PNIM_ITS ---
Subjective Subjective Date of Service: 02/17/23 Interval History: Seen and evaluated this morning more alert and oriented Cx growing GNR in urine BP elevated Physical Exam Vital Signs: Vital Signs: Last Vital Signs Temp 97.2 F 02/17/23 07:51 Pulse 74 02/17/23 10:01 Resp 16 02/17/23 07:51 BP 149/79 H 02/17/23 10:01 Pulse Ox 95 02/17/23 10:01 O2 Del Method Room Air 02/17/23 03:53 O2 Flow Rate 96 02/16/23 19:35 BMI result Body Mass Index 27.1 Const: Other: Constitutional :alerti, not in distress Neck : Normal inspection, Supple Cardiovascular : RRR, no JVP, no lower extremity edema Respiratory : good bilateral air entry, no crackles, wheezes or rhonchi Gastrointestinal: soft, lax, Normal bowel sounds, Non tender Skin : Warm, Dry, LEft elbow chronic ulcer with mild warmth, multiple bruises Neurological : alert, interactive, No focal deficit noted Objective Data Active Medications Acetaminophen (Acetaminophen 325 Mg Tablet) 650 mg PO Q4H PRN PRN Reason: Pain, Moderate(Pain Scale 4-6) Last Admin: 02/17/23 10:16 Dose: 650 mg Documented By: VIVIANA Amlodipine Besylate (Amlodipine Besylate 10 Mg Tablet) 10 mg PO DAILY [facility]; Protocol Last Admin: 02/17/23 07:34 Dose: 10 mg Documented By: VIVIANA Baclofen (Baclofen 10 Mg Tablet) 10 mg PO BID PRN PRN Reason: muscle spasm Last Admin: 02/17/23 10:14 Dose: 10 mg Documented By: VIVIANA Carvedilol (Carvedilol 25 Mg Tablet) 25 mg PO BIDWM [facility]; Protocol Last Admin: 02/17/23 07:33 Dose: 25 mg Documented By: VIVIANA Ezetimibe (Ezetimibe 10 Mg Tablet) 10 mg PO DAILY [facility] Last Admin: 02/17/23 07:33 Dose: 10 mg Documented By: VIVIANA Enoxaparin Sodium (Enoxaparin Sodium 30 Mg/0.3 Ml Syringe) 30 mg SUBCUT Q24H [facility] Last Admin: 02/16/23 18:08 Dose: 30 mg Documented By: JOSE Famotidine (Famotidine 20 Mg Tablet) 40 mg PO BEDTIME [facility] Last Admin: 02/16/23 19:56 Dose: 40 mg Documented By: ADELAIDA Ceftriaxone Sodium 1 gm/ (Sodium Chloride) 50 mls @ 100 mls/hr IV Q24H [facility] Last Infusion: 02/16/23 19:07 Dose: 100 mls/hr Documented By: JOSE Promethazine HCl 6.25 mg/ (Sodium Chloride) 50.25 mls @ 201 mls/hr IV ONCE PRN PRN Reason: Nausea Insulin Glargine (Insulin Glargine,Hum.Rec.Anlog 100 Unit/Ml 10 Ml Vial) 14 unit SUBCUT DAILY [facility] Last Admin: 02/16/23 08:19 Dose: 14 unit Documented By: JOSE Insulin Human Lispro (Insulin Lispro 100 Unit/Ml 3 Ml Vial) 0 unit SUBCUT TIDAC [facility]; Protocol Last Admin: 02/17/23 07:09 Dose: Not Given Documented By: VIVIANA Non-Admin Reason: No Insulin Coverage Linezolid (Linezolid 600 Mg Tablet) 600 mg PO Q12H [facility] Last Admin: 02/17/23 07:33 Dose: 600 mg Documented By: VIVIANA Ondansetron HCl (Ondansetron Hcl 4 Mg/2 Ml Vial) 4 mg IVPUSH Q8H PRN PRN Reason: Nausea and Vomiting Last Admin: 02/16/23 06:07 Dose: 4 mg Documented By: ODRISSofiya Oxycodone HCl (Oxycodone Hcl Immed Release 5 Mg Tablet) 5 mg PO Q6H PRN PRN Reason: Pain, Moderate(Pain Scale 4-6) Last Admin: 02/17/23 10:15 Dose: 5 mg Documented By: VIVIANA Prednisone (Prednisone 1 Mg Tablet) 4 mg PO DAILY [facility] Last Admin: 02/17/23 07:35 Dose: 4 mg Documented By: VIVIANA Prednisone (Prednisone 5 Mg Tablet) 15 mg PO DAILY [facility] Last Admin: 02/17/23 07:35 Dose: 15 mg Documented By: VIVIANA Sodium Chloride (0.9 % Sodium Chloride Flush 3 Ml Syringe) 3 ml IVFLUSH QSHIFT [facility] Last Admin: 02/17/23 07:33 Dose: 3 ml Documented By: VIVIANA Torsemide (Torsemide 20 Mg Tablet) 40 mg PO DAILY@1200 [facility]; Protocol Last Admin: 02/14/23 13:13 Dose: Not Given Documented By: ALYSA Non-Admin Reason: n/v, pt refusing po Torsemide (Torsemide 20 Mg Tablet) 60 mg PO DAILY@0900 [facility]; Protocol Last Admin: 02/17/23 07:39 Dose: 60 mg Documented By: VIVIANA Labs 02/15/23 05:39 02/15/23 05:39 Labs: Laboratory Results - last 24 hr 02/16/23 02/16/23 02/16/23 11:03 16:31 21:05 POC Glucose 212 H 232 H 99 02/17/23 07:04 POC Glucose 95 Microbiology Microbiology Results: Microbiology 02/14/23 16:28 Urine Culture - Final Urine Catheterized - [place] Catheter Klebsiella oxytoca Enterobacter cloacae complex 02/14/23 14:55 Blood Culture - Preliminary Blood - Venous No growth after 48 hours. 02/14/23 14:55 Blood Culture - Preliminary Blood - Venous No growth after 48 hours. 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 Toxic encephalopathy 2/2 Urine infection resolving growing 2 bacterias in urine cultures: Klebsieall and Enterobacter change Ceftriaxone to Levaquin to cover both modified diet recurrent reorientation LEft elbow OM Continue Zyvox until ?03/15/23 Uncontrolled HTN better controlled Increase Amlodipine to 10mg Continue BB and Spironolactone, Torsemide Hyponatremia 2/2 medications resolved monitor BMP Hypokalemia resolved PMR Continue Prednisone 19 mg daily Type 2 DM SSI, lantus diabetic diet CKD 3 Stable disease DVT PPx Lovenox The patient will need overnight hospital stay for treatment of infection pending improvement of mental status and safe discharge plan\ to SNF Time Spent With Patient Time: Total time managing care of this patient today ____ minutes. Quality Stroke Does the patient have a stroke diagnosis?: No VTE Prior VTE?: No VTE Risk Level:: Medical - moderate - high VTE Device Contraindication: Treatment Not Indicated VTE Drug Contraindication: N/A - Med Ordered
[2023-02-17 11:25] LABS: Glucose, Whole Blood 185 mg/dL (60-115)
[2023-02-17] MEDS: Insulin Lispro 100 UNIT/ML 3 ML VIAL SUBCUT ×2 (12:06→16:49)
[2023-02-17 15:21] VITALS: BP 136/77; PULSE 63; RESP 18; TEMP 36.1; O2SAT 96
--- NOTE | 2023-02-17 15:44 | MHC.CM.PN ---
PT/HCP [facility] DORIAN HAVE ACCEPTED THE BED OFFER FROM [facility] PENDING INSURANCE AUTH. AWAITING AUTH APPROVAL.
[2023-02-17 16:28] LABS: Glucose, Whole Blood 176 mg/dL (60-115)
[2023-02-17] MEDS: levoFLOXacin 250 MG TABLET PO (16:49)
[2023-02-17] MEDS: Enoxaparin Sodium 30 MG/0.3 ML SYRINGE SUBCUT (18:33)
[2023-02-17 20:00] VITALS: BP 145/67; PULSE 82; RESP 18; TEMP 36.7; O2SAT 95
[2023-02-17 20:15] LABS: Glucose, Whole Blood 178 mg/dL (60-115)
[2023-02-17] MEDS: Famotidine 20 MG TABLET 40 MG PO (20:43)
[2023-02-18] MEDS: 0.9 % Sodium Chloride Flush 3 ML SYRINGE IVFLUSH ×2 (01:53→20:55)
[2023-02-18] MEDS: ondansetron HCL 4 MG/2 ML VIAL IVPUSH (02:20)
[2023-02-18 04:00] VITALS: BP 135/88; PULSE 86; RESP 18; TEMP 36.8; O2SAT 96
[2023-02-18 07:24] VITALS: BP 141/84; PULSE 79; RESP 18; TEMP 36.4; O2SAT 97
[2023-02-18 07:26] LABS: Glucose, Whole Blood 190 mg/dL (60-115)
[2023-02-18] MEDS: methylPREDNISolone Sod Succ 40 MG/ML VIAL IVPUSH (10:24)
--- NOTE | 2023-02-18 11:24 | HO.PM.IMPN ---
Subjective Subjective Date of Service: 02/18/23 Interval History: apathy, fatigue Physical Exam Vital Signs: Vital Signs: Last Vital Signs Temp 97.5 F 02/18/23 07:24 Pulse 79 02/18/23 07:24 Resp 18 02/18/23 07:24 BP 141/84 H 02/18/23 07:24 Pulse Ox 97 02/18/23 07:24 O2 Del Method Room Air 02/18/23 07:24 O2 Flow Rate 96 02/16/23 19:35 BMI result Body Mass Index 27.1 alert, flat affect, no focal neuro defecit, oriented times 3 Objective Data Active Medications Acetaminophen (Acetaminophen 325 Mg Tablet) 650 mg PO Q4H PRN PRN Reason: Pain, Moderate(Pain Scale 4-6) Last Admin: 02/17/23 10:16 Dose: 650 mg Documented By: VIVIANA Amlodipine Besylate (Amlodipine Besylate 10 Mg Tablet) 10 mg PO DAILY [facility]; Protocol Last Admin: 02/18/23 09:23 Dose: Not Given Documented By: GOLDY Non-Admin Reason: pt nauseous refusing PO meds and food Baclofen (Baclofen 10 Mg Tablet) 10 mg PO BID PRN PRN Reason: muscle spasm Last Admin: 02/17/23 10:14 Dose: 10 mg Documented By: VIVIANA Carvedilol (Carvedilol 25 Mg Tablet) 25 mg PO BIDWM [facility]; Protocol Last Admin: 02/18/23 09:23 Dose: Not Given Documented By: GOLDY Non-Admin Reason: pt nauseous refusing PO meds and food Ezetimibe (Ezetimibe 10 Mg Tablet) 10 mg PO DAILY [facility] Last Admin: 02/18/23 09:24 Dose: Not Given Documented By: GOLDY Non-Admin Reason: Pt feeling nauseated refusing PO meds and hair Enoxaparin Sodium (Enoxaparin Sodium 40 Mg/0.4 Ml Syringe) 40 mg SUBCUT Q24H [facility] Famotidine (Famotidine 20 Mg Tablet) 40 mg PO BEDTIME [facility] Last Admin: 02/17/23 20:43 Dose: 40 mg Documented By: ABDI Promethazine HCl 6.25 mg/ (Sodium Chloride) 50.25 mls @ 201 mls/hr IV ONCE PRN PRN Reason: Nausea Insulin Glargine (Insulin Glargine,Hum.Rec.Anlog 100 Unit/Ml 10 Ml Vial) 14 unit SUBCUT DAILY [facility] Last Admin: 02/18/23 09:24 Dose: Not Given Documented By: GOLDY Non-Admin Reason: pt feeling nauseated refusin PO meds and food Insulin Human Lispro (Insulin Lispro 100 Unit/Ml 3 Ml Vial) 0 unit SUBCUT TIDAC [facility]; Protocol Last Admin: 02/18/23 09:22 Dose: Not Given Documented By: GOLDY Non-Admin Reason: Pt nauseous refusing to eat Levofloxacin (Levofloxacin 250 Mg Tablet) 250 mg PO Q24H [facility] Last Admin: 02/17/23 16:49 Dose: 250 mg Documented By: MARGARET Linezolid (Linezolid 600 Mg Tablet) 600 mg PO Q12H [facility] Last Admin: 02/18/23 09:22 Dose: Not Given Documented By: GOLDY Non-Admin Reason: Patient Refused Methylprednisolone Sodium Succinate (Methylprednisolone Sod Succ 40 Mg/Ml Vial) 40 mg IVPUSH Q24H [facility] Last Admin: 02/18/23 10:24 Dose: 40 mg Documented By: GOLDY Ondansetron HCl (Ondansetron Hcl 4 Mg/2 Ml Vial) 4 mg IVPUSH Q8H PRN PRN Reason: Nausea and Vomiting Last Admin: 02/18/23 02:20 Dose: 4 mg Documented By: VIRIDIANAOIC Prednisone (Prednisone 1 Mg Tablet) 4 mg PO DAILY [facility] Last Admin: 02/18/23 09:25 Dose: Not Given Documented By: GOLDY Non-Admin Reason: pt nauseated refusing PO meds and food Prednisone (Prednisone 5 Mg Tablet) 15 mg PO DAILY [facility] Last Admin: 02/18/23 09:25 Dose: Not Given Documented By: GOLDY Non-Admin Reason: Pt nauseated refusing PO meds and food Sodium Chloride (0.9 % Sodium Chloride Flush 3 Ml Syringe) 3 ml IVFLUSH QSHIFT [facility] Last Admin: 02/18/23 09:22 Dose: Not Given Documented By: GOLDY Non-Admin Reason: Patient Refused Torsemide (Torsemide 20 Mg Tablet) 40 mg PO DAILY@1200 [facility]; Protocol Last Admin: 02/14/23 13:13 Dose: Not Given Documented By: ALYSA Non-Admin Reason: n/v, pt refusing po Torsemide (Torsemide 20 Mg Tablet) 60 mg PO DAILY@0900 [facility]; Protocol Last Admin: 02/18/23 09:25 Dose: Not Given Documented By: GOLDY Non-Admin Reason: Pt nauseated refusing PO meds and food Labs 02/15/23 05:39 02/15/23 05:39 Labs: Laboratory Results - last 24 hr 02/17/23 02/17/23 02/17/23 11:22 16:20 20:10 POC Glucose 185 H 176 H 178 H 02/18/23 07:18 POC Glucose 190 H Microbiology Microbiology Results: Microbiology 02/14/23 16:28 Urine Culture - Final Urine Catheterized - [place] Catheter Klebsiella oxytoca Enterobacter cloacae complex Assessment and Plan (1) Toxic metabolic encephalopathy: Status: Acute Plan 67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 acute metabolic encephalopathy due to acute UTI resolved Klebsiella and Enterobacter Levaquin fatigue lethargy differential includes flare of PMR vs depression will increase steroids to 40mg daily, monitor for improvement, if none will consider psych eval LEft elbow OM Continue Zyvox until 03/15/23 Uncontrolled HTN better controlled Increased Amlodipine to 10mg Continue BB and Spironolactone Hyponatremia 2/2 medications hodling torsemide monitor BMP unspecified chf hold torsemide for now check labs Hypokalemia resolved Type 2 DM SSI, lantus diabetic diet CKD 3 Stable disease history of CAD, PVD not on antiplatelet? DVT PPx Lovenox full code reason for continued hospitalization:severe fatigue, lethargy, work up ongoing Time Spent With Patient Time: Total time managing care of this patient today ____ minutes. Quality Stroke Does the patient have a stroke diagnosis?: No VTE Prior VTE?: No VTE Risk Level:: Medical - moderate - high VTE Device Contraindication: Treatment Not Indicated VTE Drug Contraindication: N/A - Med Ordered
[2023-02-18 11:29] LABS: Glucose, Whole Blood 229 mg/dL (60-115)
[2023-02-18] MEDS: Insulin Lispro 100 UNIT/ML 3 ML VIAL SUBCUT ×2 (12:11→16:20)
[2023-02-18] MEDS: levoFLOXacin/D5W 500 MG/100 ML PIGGYBACK 100 MG IV (12:12)
[2023-02-18 13:19] VITALS: PULSE 79; RESP 20; O2SAT 96
--- NOTE | 2023-02-18 14:52 | MHC.CM.PN ---
EMR REVIEWED AND PER MD ROUNDS, PT IS NOT MEDICALLY CLEARED FOR DC. [facility] HAD OBTAINED AUTH FOR ADMISSION TODAY BUT PT NOT MEDICALLY CLEARED. SP[facility]SE IS AWARE. [facility] LIAISON UPDATED, AUTH WILL BE GOOD FOR 02/19 BUT WILL NEED NEW ONE AFTER THAT. CM WILL CONTINUE TO FOLLOW.
[2023-02-18 15:40] VITALS: BP 136/85; PULSE 83; RESP 20; TEMP 36; O2SAT 96
[2023-02-18 16:07] LABS: Glucose, Whole Blood 210 mg/dL (60-115)
[2023-02-18] MEDS: carvediloL 25 MG TABLET PO (16:19)
[2023-02-18 20:37] LABS: Glucose, Whole Blood 216 mg/dL (60-115)
[2023-02-18] MEDS: Enoxaparin Sodium 40 MG/0.4 ML SYRINGE SUBCUT (20:52)
[2023-02-18] MEDS: Famotidine 20 MG TABLET 40 MG PO (20:53)
[2023-02-18] MEDS: Acetaminophen 325 MG TABLET 650 MG PO (20:53)
[2023-02-18] MEDS: Baclofen 10 MG TABLET PO (20:53)
[2023-02-18] MEDS: Linezolid 600 MG TABLET PO (20:53)
[2023-02-19] MEDS: Acetaminophen 325 MG TABLET 650 MG PO ×2 (03:12→19:55)
[2023-02-19 04:00] VITALS: BP 168/80; PULSE 67; RESP 18; TEMP 36; O2SAT 96
[2023-02-19] MEDS: Linezolid 600 MG TABLET PO ×2 (06:06→18:22)
--- NOTE | 2023-02-19 06:20 | PC.NURSE ---
[facility] room 378, tylenol given but no effect. Not time for the next dose. Pt is in severe pain. Dr. Francisco was notified. I asked if there were anything else i could give and he replied ok. He prescribed tramodol PO.
[2023-02-19] MEDS: traMADoL HCL 50 MG TABLET 25 MG PO (06:27)
[2023-02-19 06:53] LABS: Hematocrit 36.4 % (37.0-47.0); Hemoglobin 12.7 g/dl (12.0-16.0); Mean Corpuscular HGB Conc 34.9 g/dl (31.0-35.0); Mean Corpuscular Hemoglobin 29.1 pg (27.0-33.0); Mean Corpuscular Volume 83.5 fL (80.0-98.0); Mean Platelet Volume 10.6 fL (9.4-12.3); Platelet Count 285 X10*3/uL (160-400); Red Blood Count 4.36 X10*6/uL (4.20-5.50); Red Cell Distribution Width 14.5 % (11.0-16.0)
[2023-02-19 07:19] LABS: Alanine Aminotransferase 20 U/L (0-31); Albumin Level 3.5 g/dL (3.5-5.0); Alkaline Phosphatase 123 U/L (39-117); Anion Gap 23 (12-20); Aspartate Amino Transferase 15 U/L (5-31); Bilirubin Direct 0.3 mg/dL (0.0-0.5); Bilirubin Total 0.8 mg/dL (0.0-1.0); Blood Urea Nitrogen 21 mg/dL (9-16); C Reactive Protein 0.77 mg/dL (< or = 0.50); Calcium 9.2 mg/dL (8.4-10.2); Carbon Dioxide 20 mmol/L (22-29); Chloride 90 mmol/L (96-108); Creatinine Clr Calc Pharmacy 41.8; Estimated Glomerular Filt Rate 47; Glucose Fasting 202 mg/dL (60-99); Magnesium 2.1 mg/dL (1.6-2.6); Sodium 130 mmol/L (135-145); Total Protein 5.8 g/dL (6.5-8.0)
[2023-02-19 07:20] VITALS: BP 174/82; PULSE 75; RESP 18; TEMP 36.7; O2SAT 94
[2023-02-19 07:30] LABS: Glucose, Whole Blood 230 mg/dL (60-115)
[2023-02-19 07:32] LABS: TSH reflex Free T4 0.34 uIU/mL (0.32-4.0)
[2023-02-19 07:46] LABS: Erythrocyte Sedimentation Rate 14 MM/HR (0-20)
[2023-02-19] MEDS: Ezetimibe 10 MG TABLET PO (08:23)
[2023-02-19] MEDS: amLODIPine Besylate 10 MG TABLET PO (08:23)
[2023-02-19] MEDS: carvediloL 25 MG TABLET PO ×2 (08:23→17:09)
[2023-02-19] MEDS: Insulin Lispro 100 UNIT/ML 3 ML VIAL SUBCUT ×3 (08:23→17:09)
[2023-02-19] MEDS: 0.9 % Sodium Chloride Flush 3 ML SYRINGE IVFLUSH (08:24)
[2023-02-19] MEDS: methylPREDNISolone Sod Succ 40 MG/ML VIAL IVPUSH (08:24)
[2023-02-19] MEDS: Insulin Glargine,Hum.rec.anlog 100 UNIT/ML 10 ML VIAL 14 UNIT SUBCUT (08:24)
[2023-02-19] MEDS: 0.9 % Sodium Chloride 1,000 ML 100 ML IVCONT ×3 (08:29→19:56)
[2023-02-19 09:13] VITALS: BP 174/82; PULSE 75; O2SAT 94
[2023-02-19 11:15] LABS: Glucose, Whole Blood 240 mg/dL (60-115)
[2023-02-19] MEDS: levoFLOXacin/D5W 500 MG/100 ML PIGGYBACK 100 MG IV (11:49)
--- NOTE | 2023-02-19 11:56 | HO.PM.IMPN ---
Subjective Subjective Date of Service: 02/19/23 Interval History: no changes Physical Exam Vital Signs: Vital Signs: Last Vital Signs Temp 98.1 F 02/19/23 07:20 Pulse 75 02/19/23 09:13 Resp 18 02/19/23 07:20 BP 174/82 H 02/19/23 09:13 Pulse Ox 94 02/19/23 09:13 O2 Del Method Room Air 02/19/23 07:20 O2 Flow Rate 96 02/16/23 19:35 BMI result Body Mass Index 27.1 alert, flat affect, no focal neuro defecit, oriented times 3 Objective Data Active Medications Acetaminophen (Acetaminophen 325 Mg Tablet) 650 mg PO Q4H PRN PRN Reason: Pain, Moderate(Pain Scale 4-6) Last Admin: 02/19/23 03:12 Dose: 650 mg Documented By: MAINOR Amlodipine Besylate (Amlodipine Besylate 10 Mg Tablet) 10 mg PO DAILY [facility]; Protocol Last Admin: 02/19/23 08:23 Dose: 10 mg Documented By: GOLDY Baclofen (Baclofen 10 Mg Tablet) 10 mg PO BID PRN PRN Reason: muscle spasm Last Admin: 02/18/23 20:53 Dose: 10 mg Documented By: MAINOR Carvedilol (Carvedilol 25 Mg Tablet) 25 mg PO BIDWM [facility]; Protocol Last Admin: 02/19/23 08:23 Dose: 25 mg Documented By: GOLDY Ezetimibe (Ezetimibe 10 Mg Tablet) 10 mg PO DAILY [facility] Last Admin: 02/19/23 08:23 Dose: 10 mg Documented By: GOLDY Enoxaparin Sodium (Enoxaparin Sodium 40 Mg/0.4 Ml Syringe) 40 mg SUBCUT Q24H [facility] Last Admin: 02/18/23 20:52 Dose: 40 mg Documented By: MAINOR Famotidine (Famotidine 20 Mg Tablet) 40 mg PO BEDTIME [facility] Last Admin: 02/18/23 20:53 Dose: 40 mg Documented By: MAINOR Promethazine HCl 6.25 mg/ (Sodium Chloride) 50.25 mls @ 201 mls/hr IV ONCE PRN PRN Reason: Nausea Levofloxacin (Levaquin) 500 mg in 100 mls @ 100 mls/hr IV Q24H [facility] Last Admin: 02/19/23 11:49 Dose: 100 mls/hr Documented By: EVENS Sodium Chloride (Ns) 1,000 mls @ 100 mls/hr IVCONT .Q10H [facility] Last Admin: 02/19/23 08:29 Dose: 100 mls/hr Documented By: GOLDY Insulin Glargine (Insulin Glargine,Hum.Rec.Anlog 100 Unit/Ml 10 Ml Vial) 14 unit SUBCUT DAILY [facility] Last Admin: 02/19/23 08:24 Dose: 14 unit Documented By: GOLDY Insulin Human Lispro (Insulin Lispro 100 Unit/Ml 3 Ml Vial) 0 unit SUBCUT TIDAC [facility]; Protocol Last Admin: 02/19/23 11:50 Dose: 4 unit Documented By: EVENS Linezolid (Linezolid 600 Mg Tablet) 600 mg PO Q12H [facility] Last Admin: 02/19/23 06:06 Dose: 600 mg Documented By: MAINOR Methylprednisolone Sodium Succinate (Methylprednisolone Sod Succ 40 Mg/Ml Vial) 40 mg IVPUSH Q24H [facility] Last Admin: 02/19/23 08:24 Dose: 40 mg Documented By: GOLDY Ondansetron HCl (Ondansetron Hcl 4 Mg/2 Ml Vial) 4 mg IVPUSH Q8H PRN PRN Reason: Nausea and Vomiting Last Admin: 02/18/23 02:20 Dose: 4 mg Documented By: GRIFFIN Prednisone (Prednisone 1 Mg Tablet) 4 mg PO DAILY [facility] Last Admin: 02/19/23 08:41 Dose: Not Given Documented By: GOLDY Non-Admin Reason: give IV per Prednisone (Prednisone 5 Mg Tablet) 15 mg PO DAILY [facility] Last Admin: 02/19/23 08:41 Dose: Not Given Documented By: GOLDY Non-Admin Reason: Give IV per Sodium Chloride (0.9 % Sodium Chloride Flush 3 Ml Syringe) 3 ml IVFLUSH QSHIFT [facility] Last Admin: 02/19/23 08:24 Dose: 3 ml Documented By: GOLDY Torsemide (Torsemide 20 Mg Tablet) 40 mg PO DAILY@1200 [facility]; Protocol Last Admin: 02/14/23 13:13 Dose: Not Given Documented By: HO.SOFFAA Non-Admin Reason: n/v, pt refusing po Torsemide (Torsemide 20 Mg Tablet) 60 mg PO DAILY@0900 [facility]; Protocol Last Admin: 02/18/23 09:25 Dose: Not Given Documented By: GOLDY Non-Admin Reason: Pt nauseated refusing PO meds and food Labs 02/19/23 05:51 02/19/23 05:50 Labs: Laboratory Results - last 24 hr 02/18/23 02/18/23 02/19/23 16:02 20:32 05:50 MCV MCH MCHC RDW Plt Count MPV Absolute Nucleated RBC Nucleated RBC % (auto) ESR 14 Anion Gap Estim Creat Clear Calc Estimated GFR POC Glucose 210 H 216 H Fasting Glucose Calcium Magnesium Total Bilirubin Direct Bilirubin AST ALT Alkaline Phosphatase C-Reactive Protein Total Protein Albumin TSH 02/19/23 02/19/23 02/19/23 05:50 05:51 07:26 MCV 83.5 MCH 29.1 MCHC 34.9 RDW 14.5 Plt Count 285 D MPV 10.6 Absolute Nucleated RBC 0.000 Nucleated RBC % (auto) 0.0 ESR Anion Gap 23 H Estim Creat Clear Calc 41.8 Estimated GFR 47 POC Glucose 230 H Fasting Glucose 202 H Calcium 9.2 Magnesium 2.1 Total Bilirubin 0.8 Direct Bilirubin 0.3 AST 15 ALT 20 Alkaline Phosphatase 123 H C-Reactive Protein 0.77 H Total Protein 5.8 L Albumin 3.5 TSH 0.34 02/19/23 11:11 MCV MCH MCHC RDW Plt Count MPV Absolute Nucleated RBC Nucleated RBC % (auto) ESR Anion Gap Estim Creat Clear Calc Estimated GFR POC Glucose 240 H Fasting Glucose Calcium Magnesium Total Bilirubin Direct Bilirubin AST ALT Alkaline Phosphatase C-Reactive Protein Total Protein Albumin TSH Assessment and Plan (1) Toxic metabolic encephalopathy: Status: Acute Plan 67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 acute metabolic encephalopathy due to acute UTI resolved Klebsiella and Enterobacter Levaquin fatigue lethargy differential includes flare of PMR vs depression increased steroids to 40mg daily, monitor for improvement, if none will consider psych eval LEft elbow OM Continue Zyvox until 03/15/23 Uncontrolled HTN better controlled Increased Amlodipine to 10mg Continue BB and Spironolactone Hyponatremia 2/2 medications holding torsemide monitor BMP unspecified chf hold torsemide for now check labs Hypokalemia resolved Type 2 DM SSI, lantus diabetic diet CKD 3 Stable disease history of CAD, PVD not on antiplatelet? DVT PPx Lovenox full code reason for continued hospitalization:severe fatigue, lethargy, work up ongoing Time Spent With Patient Time: Total time managing care of this patient today ____ minutes. Quality Stroke Does the patient have a stroke diagnosis?: No VTE Prior VTE?: No VTE Risk Level:: Medical - moderate - high VTE Device Contraindication: Treatment Not Indicated VTE Drug Contraindication: N/A - Med Ordered
[2023-02-19] MEDS: Potassium Chloride ER 20 MEQ TAB.ER.PRT 40 MEQ PO (12:40)
[2023-02-19 15:12] VITALS: BP 181/78; PULSE 72; RESP 18; TEMP 37.2; O2SAT 95
[2023-02-19 16:13] LABS: Glucose, Whole Blood 229 mg/dL (60-115)
--- NOTE | 2023-02-19 17:28 | PC.NURSE ---
MD Chang notified Via tiger text Pts blood pressure continues to be elevated last BP194/95 Pt asymptomatic otherwise, scheduled Carvedilol given.
[2023-02-19] MEDS: Enoxaparin Sodium 40 MG/0.4 ML SYRINGE SUBCUT (18:22)
[2023-02-19 19:39] VITALS: BP 143/95; PULSE 70; RESP 20; TEMP 36.4; O2SAT 98
[2023-02-19] MEDS: Famotidine 20 MG TABLET 40 MG PO (19:55)
[2023-02-19] MEDS: Baclofen 10 MG TABLET PO (19:55)
[2023-02-19 20:19] LABS: Glucose, Whole Blood 172 mg/dL (60-115)
[2023-02-20] MEDS: Acetaminophen 325 MG TABLET 650 MG PO (03:45)
[2023-02-20 04:00] VITALS: BP 147/84; PULSE 69; RESP 19; TEMP 36; O2SAT 96
[2023-02-20] MEDS: 0.9 % Sodium Chloride 1,000 ML 100 ML IVCONT ×2 (04:11→17:05)
[2023-02-20] MEDS: Linezolid 600 MG TABLET PO ×2 (06:04→18:23)
[2023-02-20 06:27] LABS: Hematocrit 34.2 % (37.0-47.0); Hemoglobin 11.9 g/dl (12.0-16.0); Mean Corpuscular HGB Conc 34.8 g/dl (31.0-35.0); Mean Corpuscular Hemoglobin 29.2 pg (27.0-33.0); Platelet Count 263 X10*3/uL (160-400); Red Blood Count 4.07 X10*6/uL (4.20-5.50); Red Cell Distribution Width 14.7 % (11.0-16.0); White Blood Count 13.4 X10*3/uL (4.8-10.8)
[2023-02-20 07:02] LABS: Anion Gap 18 (12-20); Blood Urea Nitrogen 15 mg/dL (9-16); Calcium 8.7 mg/dL (8.4-10.2); Carbon Dioxide 19 mmol/L (22-29); Chloride 99 mmol/L (96-108); Creatinine Clr Calc Pharmacy 54.8; Estimated Glomerular Filt Rate > 60; Glucose Fasting 123 mg/dL (60-99); Magnesium 1.9 mg/dL (1.6-2.6); Potassium 3.3 mmol/L (3.3-5.1); Sodium 133 mmol/L (135-145)
[2023-02-20 07:07] VITALS: BP 173/81; PULSE 62; RESP 18; TEMP 36.6; O2SAT 94
[2023-02-20 07:26] LABS: Glucose, Whole Blood 146 mg/dL (60-115)
[2023-02-20] MEDS: Ezetimibe 10 MG TABLET PO (09:07)
[2023-02-20] MEDS: amLODIPine Besylate 10 MG TABLET PO (09:07)
[2023-02-20] MEDS: carvediloL 25 MG TABLET PO ×2 (09:07→16:27)
[2023-02-20] MEDS: predniSONE 1 MG TABLET 4 MG PO (09:08)
[2023-02-20] MEDS: predniSONE 5 MG TABLET 15 MG PO (09:08)
[2023-02-20] MEDS: methylPREDNISolone Sod Succ 40 MG/ML VIAL IVPUSH (09:08)
[2023-02-20] MEDS: Insulin Glargine,Hum.rec.anlog 100 UNIT/ML 10 ML VIAL 14 UNIT SUBCUT (09:30)
--- NOTE | 2023-02-20 10:40 | HO.PM.IMPN ---
Subjective Subjective Date of Service: 02/20/23 Interval History: feeling a bit better Physical Exam Vital Signs: Vital Signs: Last Vital Signs Temp 97.9 F 02/20/23 07:07 Pulse 62 02/20/23 07:07 Resp 18 02/20/23 07:07 BP 173/81 H 02/20/23 07:07 Pulse Ox 94 02/20/23 07:07 O2 Del Method Room Air 02/20/23 07:07 O2 Flow Rate 96 02/16/23 19:35 BMI result Body Mass Index 27.1 General: AO X 3, no acute distress Resp: CTA bilateral, no accessory muscles used CVS: S1,S2,RRR GI: soft, non tender, non distended Neuro: motor grossly intact, alert Psych: appropriate affect, appropriate insight Objective Data Active Medications Acetaminophen (Acetaminophen 325 Mg Tablet) 650 mg PO Q4H PRN PRN Reason: Pain, Moderate(Pain Scale 4-6) Last Admin: 02/20/23 03:45 Dose: 650 mg Documented By: MAINOR Amlodipine Besylate (Amlodipine Besylate 10 Mg Tablet) 10 mg PO DAILY [facility]; Protocol Last Admin: 02/20/23 09:07 Dose: 10 mg Documented By: FRANK Baclofen (Baclofen 10 Mg Tablet) 10 mg PO BID PRN PRN Reason: muscle spasm Last Admin: 02/19/23 19:55 Dose: 10 mg Documented By: MAINOR Carvedilol (Carvedilol 25 Mg Tablet) 25 mg PO BIDWM [facility]; Protocol Last Admin: 02/20/23 09:07 Dose: 25 mg Documented By: FRANK Ezetimibe (Ezetimibe 10 Mg Tablet) 10 mg PO DAILY [facility] Last Admin: 02/20/23 09:07 Dose: 10 mg Documented By: FRANK Enoxaparin Sodium (Enoxaparin Sodium 40 Mg/0.4 Ml Syringe) 40 mg SUBCUT Q24H [facility] Last Admin: 02/19/23 18:22 Dose: 40 mg Documented By: GOLDY Famotidine (Famotidine 20 Mg Tablet) 40 mg PO BEDTIME [facility] Last Admin: 02/19/23 19:55 Dose: 40 mg Documented By: MAINOR Promethazine HCl 6.25 mg/ (Sodium Chloride) 50.25 mls @ 201 mls/hr IV ONCE PRN PRN Reason: Nausea Levofloxacin (Levaquin) 500 mg in 100 mls @ 100 mls/hr IV Q24H [facility] Last Infusion: 02/19/23 12:54 Dose: 0 mls/hr Documented By: GOLDY Sodium Chloride (Ns) 1,000 mls @ 100 mls/hr IVCONT .Q10H [facility] Last Admin: 02/20/23 04:11 Dose: 100 mls/hr Documented By: MARLENY Insulin Glargine (Insulin Glargine,Hum.Rec.Anlog 100 Unit/Ml 10 Ml Vial) 14 unit SUBCUT DAILY [facility] Last Admin: 02/20/23 09:30 Dose: 14 unit Documented By: FRANK Insulin Human Lispro (Insulin Lispro 100 Unit/Ml 3 Ml Vial) 0 unit SUBCUT TIDAC [facility]; Protocol Last Admin: 02/20/23 08:19 Dose: Not Given Documented By: FRANK Non-Admin Reason: No Insulin Coverage Linezolid (Linezolid 600 Mg Tablet) 600 mg PO Q12H [facility] Last Admin: 02/20/23 06:04 Dose: 600 mg Documented By: MAINOR Methylprednisolone Sodium Succinate (Methylprednisolone Sod Succ 40 Mg/Ml Vial) 40 mg IVPUSH Q24H [facility] Last Admin: 02/20/23 09:08 Dose: 40 mg Documented By: FRANK Ondansetron HCl (Ondansetron Hcl 4 Mg/2 Ml Vial) 4 mg IVPUSH Q8H PRN PRN Reason: Nausea and Vomiting Last Admin: 02/18/23 02:20 Dose: 4 mg Documented By: ANTOIC Prednisone (Prednisone 1 Mg Tablet) 4 mg PO DAILY [facility] Last Admin: 02/20/23 09:08 Dose: 4 mg Documented By: FRANK Prednisone (Prednisone 5 Mg Tablet) 15 mg PO DAILY [facility] Last Admin: 02/20/23 09:08 Dose: 15 mg Documented By: FRANK Sodium Chloride (0.9 % Sodium Chloride Flush 3 Ml Syringe) 3 ml IVFLUSH QSHIFT [facility] Last Admin: 02/20/23 09:08 Dose: Not Given Documented By: FRANK Non-Admin Reason: IV Running Torsemide (Torsemide 20 Mg Tablet) 40 mg PO DAILY@1200 [facility]; Protocol Last Admin: 02/14/23 13:13 Dose: Not Given Documented By: ALYSA Non-Admin Reason: n/v, pt refusing po Torsemide (Torsemide 20 Mg Tablet) 60 mg PO DAILY@0900 [facility]; Protocol Last Admin: 02/18/23 09:25 Dose: Not Given Documented By: GOLDY Non-Admin Reason: Pt nauseated refusing PO meds and food Labs 02/20/23 05:49 02/20/23 05:49 Labs: Laboratory Results - last 24 hr 02/19/23 02/19/23 02/19/23 11:11 16:09 20:13 MCV MCH MCHC RDW Plt Count MPV Absolute Nucleated RBC Nucleated RBC % (auto) Anion Gap Estim Creat Clear Calc Estimated GFR POC Glucose 240 H 229 H 172 H Fasting Glucose Calcium Magnesium 02/20/23 02/20/23 02/20/23 05:49 05:49 07:22 MCV 84.0 MCH 29.2 MCHC 34.8 RDW 14.7 Plt Count 263 MPV 10.0 Absolute Nucleated RBC 0.000 Nucleated RBC % (auto) 0.0 Anion Gap 18 Estim Creat Clear Calc 54.8 Estimated GFR > 60 POC Glucose 146 H Fasting Glucose 123 H Calcium 8.7 Magnesium 1.9 Microbiology Microbiology Results: Microbiology 02/14/23 14:55 Blood Culture - Final Blood - Venous No growth after 5 days. 02/14/23 14:55 Blood Culture - Final Blood - Venous No growth after 5 days. 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 acute metabolic encephalopathy due to acute UTI resolved Klebsiella and Enterobacter Levaquin fatigue lethargy differential includes flare of PMR vs depression appears to be responding to increased steroids to 40mg daily, continue increased dose for now, then taper LEft elbow OM Continue Zyvox until 03/15/23 HTN Increased Amlodipine to 10mg Continue BB and Spironolactone Hyponatremia 2/2 medications holding torsemide imprvoed unspecified chf hold torsemide for now Hypokalemia resolved Type 2 DM SSI, lantus diabetic diet CKD 3 Stable disease history of CAD, PVD not on antiplatelet? DVT PPx Lovenox full code reason for continued hospitalization:safe dispo Time Spent With Patient Time: Total time managing care of this patient today ____ minutes. Quality Stroke Does the patient have a stroke diagnosis?: No VTE Prior VTE?: No VTE Risk Level:: Medical - moderate - high VTE Device Contraindication: Treatment Not Indicated VTE Drug Contraindication: N/A - Med Ordered
--- NOTE | 2023-02-20 10:49 | P.DS_ITS ---
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 The patient open her eyes and looks around and might answer with one word but she is totally confused and altered and can not provide any meaningful history. Concerns about Osteomyelitis treatment as she was not on the Zyvox the last 2 days[place] [id number] with evidence of urine infection Admitted for treatment. hospital course: patient was admitted for acute metabolic encephalopathy due to acute UTI from klebsiella and enterobacter. patient completed antibiotic course, mental status returned to baseline. for her fatigue and lethargy. this is likely multifactorial: dehydration, intolerance of steroid taper, depression. her prednisone was increased to 40mg daily, torsemide was held and patient given iv fluids. she appears to have repsonded and fatigue improving. for recent left elbow OM was continued on zyvox po to be completed 03/15/23. for htn amldoipine 10mg daily was added. for hyponatremia, this resolved with holding diuretics and giving ivf. for unspecified chf, she appeared hypovolemic torsemide has been held, but this should be monitored closely as outpatient. patient had acute hypokalemia which was replaced. for CKD III creatinine was stable, for DM was given basal bolus insulin. for history of CAD and PVD, she does not appear to be on asa or statin, will defer to PCP.. she will be discharged on prednisone 40mg daily, but should continue to attempt to taper down as tolerated. patient is expected to need less than 30 days at snf. Time Spent with Patient Time attestation: Total time managing care of this patient today ____ minutes. Discharge coordination time: Greater than 30 minutes Quality: Safe Use of Opioids Does Pt have an Active Cancer Diagnosis on the Problem List?: No Quality: Stroke Does the patient have a stroke diagnosis?: No Physical Exam Vital Signs: Vital Signs: Last Vital Signs Temp 97.9 F 08/04/23 07:07 Pulse 62 02/20/23 07:07 Resp 18 02/20/23 07:07 BP 173/81 H 02/20/23 07:07 Pulse Ox 94 02/20/23 07:07 O2 Del Method Room Air 02/20/23 07:07 O2 Flow Rate 96 02/16/23 19:35 BMI result Body Mass Index 27.1 General: AO X 3, no acute distress Resp: CTA bilateral, no accessory muscles used CVS: S1,S2,RRR GI: soft, non tender, non distended Neuro: motor grossly intact, alert Psych: appropriate affect, appropriate insight DS: Data Data Completed and Pending Labs on day of discharge: Laboratory Results - last 24 hr 02/19/23 02/19/23 02/19/23 11:11 16:09 20:13 WBC RBC Hgb Hct MCV MCH MCHC RDW Plt Count MPV Absolute Nucleated RBC Nucleated RBC % (auto) Sodium Potassium Chloride Carbon Dioxide Anion Gap BUN Creatinine Estim Creat Clear Calc Estimated GFR POC Glucose 240 H 229 H 172 H Fasting Glucose Calcium Magnesium 02/20/23 02/20/23 02/20/23 05:49 05:49 07:22 WBC 13.4 H RBC 4.07 L Hgb 11.9 L Hct 34.2 L MCV 84.0 MCH 29.2 MCHC 34.8 RDW 14.7 Plt Count 263 MPV 10.0 Absolute Nucleated RBC 0.000 Nucleated RBC % (auto) 0.0 Sodium 133 L Potassium 3.3 Chloride 99 Carbon Dioxide 19 L Anion Gap 18 BUN 15 Creatinine 0.87 Estim Creat Clear Calc 54.8 Estimated GFR > 60 POC Glucose 146 H Fasting Glucose 123 H Calcium 8.7 Magnesium 1.9 Discharge Plan Discharge Anticipated Discharge Date/Time: 02/20/23 10:43 Patient Disposition: Xfer SNF Discharge Diagnosis: uti, pmr, dehydration Referrals: [facility] [Outside] - 1 Week (SHORT TERM REHAB) Allison Reyes MD [Primary Care Provider] - 1 Week Discharge Medications: New prednisone 20 mg Tablet 40 mg PO DAILY Qty: 0 0RF Rx Instructions: plan to taper slowly as directed by PCP amlodipine 10 mg Tablet 10 mg PO DAILY Qty: 0 0RF Protocol: Hold for SBP< HOLD for SBP < : 90 Continued acetaminophen [Tylenol] 325 mg Tablet 650 mg PO Q6H PRN (Reason: Pain) famotidine 40 mg tablet 40 mg PO BEDTIME Claritin-D 24 Hour 10-240 mg Tablet Extended Release 24 Hr 1 tab PO DAILY PRN (Reason: Allergy Symptoms) ezetimibe 10 mg tablet 10 mg PO DAILY linezolid 600 mg Tablet 600 mg PO Q12H Qty: 82 0RF baclofen 10 mg tablet 10 mg PO BID PRN (Reason: muscle spasm) Qty: 10 0RF oxycodone 5 mg tablet 5 mg PO Q8H PRN (Reason: pain) Qty: 10 0RF Rx Instructions: Partial Fill upon patient request. spironolactone 25 mg tablet 25 mg PO BID gabapentin 100 mg capsule 200 mg PO TID PRN (Reason: Pain) Humalog U-100 Insulin 100 unit/mL cartridge 1 sliding scale dose subcut TIDAC magnesium hydroxide [Dulcolax (magnesium hydroxide)] 400 mg/5 mL suspension 400 mg PO DAILY insulin degludec [Tresiba FlexTouch U-100] 100 unit/mL (3 mL) insulin pen 20 unit subcut DAILY carvedilol 25 mg tablet 25 mg PO BIDWM Rx Instructions: must administer with a meal/food Victoza 3-Delmer 0.6 mg/0.1 mL (18 mg/3 mL) pen injector 1.8 mg subcut DAILY Discontinued torsemide 20 mg tablet 60 mg PO DAILY@0900 torsemide 20 mg tablet 40 mg PO DAILY@1200 prednisone 5 mg tablet 15 mg PO DAILY Rx Instructions: TAKE WITH 4MG prednisone 1 mg tablet 4 mg PO DAILY Rx Instructions: TAKE WITH 15 MG Discharge Orders: Discharge Order (Routine); Ordered 02/20/23 Ordered By: Andi Chang Diet: Advance to usual diet Activity on Discharge: As tolerated Stand Alone Forms: Patient Portal Discharge page Care Plan Goals: recovery Health Concerns: fatigue, dehydration, htn Plan of Treatment: fatigue - multifactorial, increased prednisone to 40mg daily, will need to eventually taper back down as tolerated, follow up with pcp, would also consider treatement for depression, plan for rehab UTI - completed levaquin course htn - added amlodipine osteomyelitis elbow - continue zyvox until 03/15/23 Assessment: see above
[2023-02-20 11:13] LABS: Glucose, Whole Blood 194 mg/dL (60-115)
--- NOTE | 2023-02-20 11:50 | MHC.CM.PN ---
PATIENT IS DC. [facility] HAS STARTED THE AUTH PROCESS AGAIN.
[2023-02-20] MEDS: Insulin Lispro 100 UNIT/ML 3 ML VIAL SUBCUT ×2 (12:54→16:26)
[2023-02-20] MEDS: levoFLOXacin/D5W 500 MG/100 ML PIGGYBACK 100 MG IV (13:03)
[2023-02-20] MEDS: Baclofen 10 MG TABLET PO (14:00)
--- NOTE | 2023-02-20 14:40 | MHC.CM.PN ---
THIS PLASMA TABLE OPERATOR MET WITH SPOUSE, DORIAN AND UPDATED WITH PLAN. [facility] HAS GONE FOR AUTHORIZATION TO ADMIT DORIAN SAYS HE IS NOT SURE IF HE WANTS PATIENT THERE. [facility] REMINDED THAT HE AGREED TO THIS LOCATION AND THE PROCESS HAS STARTED. HE SAYS THAT HE MAY TAKE HER HOME WITH A DAILY NURSE. [facility] REMINDED THAT INSURANCE DOES NOT PAY FOR DAILY RN VISITS BUT THAT HE COULD POTENTIALLY PAY OUT OF POCKET. OF THIS NOTE, [facility] DOES NOT HAVE AUTH
[2023-02-20 15:25] VITALS: BP 172/74; PULSE 61; RESP 18; TEMP 36.5; O2SAT 95
[2023-02-20 16:15] LABS: Glucose, Whole Blood 253 mg/dL (60-115)
[2023-02-20] MEDS: 0.9 % Sodium Chloride Flush 3 ML SYRINGE IVFLUSH (16:27)
[2023-02-20] MEDS: Enoxaparin Sodium 40 MG/0.4 ML SYRINGE SUBCUT (18:23)
[2023-02-20 19:54] VITALS: BP 131/76; PULSE 80; RESP 16; TEMP 36.6; O2SAT 95
[2023-02-20 20:23] LABS: Glucose, Whole Blood 223 mg/dL (60-115)
[2023-02-20] MEDS: Famotidine 20 MG TABLET 40 MG PO (20:48)
[2023-02-21 04:00] VITALS: BP 132/70; PULSE 75; RESP 16; TEMP 36.2; O2SAT 94
[2023-02-21] MEDS: Linezolid 600 MG TABLET PO ×2 (06:06→19:35)
[2023-02-21] MEDS: Acetaminophen 325 MG TABLET 650 MG PO (06:07)
[2023-02-21] MEDS: 0.9 % Sodium Chloride 1,000 ML 100 ML IVCONT ×2 (06:09→20:09)
[2023-02-21 08:10] LABS: Glucose, Whole Blood 160 mg/dL (60-115)
[2023-02-21] MEDS: Insulin Glargine,Hum.rec.anlog 100 UNIT/ML 10 ML VIAL 14 UNIT SUBCUT (08:27)
[2023-02-21] MEDS: Insulin Lispro 100 UNIT/ML 3 ML VIAL SUBCUT ×3 (08:27→17:06)
[2023-02-21] MEDS: Ezetimibe 10 MG TABLET PO (08:28)
[2023-02-21] MEDS: carvediloL 25 MG TABLET PO ×2 (08:28→17:07)
[2023-02-21] MEDS: 0.9 % Sodium Chloride Flush 3 ML SYRINGE IVFLUSH (08:28)
[2023-02-21] MEDS: amLODIPine Besylate 10 MG TABLET PO (08:28)
[2023-02-21] MEDS: predniSONE 20 MG TABLET 40 MG PO (08:28)
--- NOTE | 2023-02-21 10:16 | HO.PM.IMPN ---
Subjective Subjective Date of Service: 02/21/23 Interval History: feeling a bit better Physical Exam Vital Signs: Vital Signs: Last Vital Signs Temp 97.2 F 02/21/23 04:00 Pulse 75 02/21/23 04:00 Resp 16 02/21/23 04:00 BP 132/70 02/21/23 04:00 Pulse Ox 94 02/21/23 04:00 O2 Del Method Room Air 02/21/23 04:00 O2 Flow Rate 96 02/16/23 19:35 BMI result Body Mass Index 27.1 General: AO X 3, no acute distress Resp: CTA bilateral, no accessory muscles used CVS: S1,S2,RRR GI: soft, non tender, non distended Neuro: motor grossly intact, alert Psych: appropriate affect, appropriate insight Objective Data Active Medications Acetaminophen (Acetaminophen 325 Mg Tablet) 650 mg PO Q4H PRN PRN Reason: Pain, Moderate(Pain Scale 4-6) Last Admin: 02/21/23 06:07 Dose: 650 mg Documented By: MARK Amlodipine Besylate (Amlodipine Besylate 10 Mg Tablet) 10 mg PO DAILY [facility]; Protocol Last Admin: 02/21/23 08:28 Dose: 10 mg Documented By: JOSE Baclofen (Baclofen 10 Mg Tablet) 10 mg PO BID PRN PRN Reason: muscle spasm Last Admin: 02/20/23 14:00 Dose: 10 mg Documented By: FRANK Carvedilol (Carvedilol 25 Mg Tablet) 25 mg PO BIDWM [facility]; Protocol Last Admin: 02/21/23 08:28 Dose: 25 mg Documented By: JOSE Ezetimibe (Ezetimibe 10 Mg Tablet) 10 mg PO DAILY [facility] Last Admin: 02/21/23 08:28 Dose: 10 mg Documented By: JOSE Enoxaparin Sodium (Enoxaparin Sodium 40 Mg/0.4 Ml Syringe) 40 mg SUBCUT Q24H [facility] Last Admin: 02/20/23 18:23 Dose: 40 mg Documented By: FRANK Famotidine (Famotidine 20 Mg Tablet) 40 mg PO BEDTIME [facility] Last Admin: 02/20/23 20:48 Dose: 40 mg Documented By: MARK Promethazine HCl 6.25 mg/ (Sodium Chloride) 50.25 mls @ 201 mls/hr IV ONCE PRN PRN Reason: Nausea Levofloxacin (Levaquin) 500 mg in 100 mls @ 100 mls/hr IV Q24H [facility] Last Infusion: 02/20/23 14:57 Dose: 0 mls/hr Documented By: FRANK Sodium Chloride (Ns) 1,000 mls @ 100 mls/hr IVCONT .Q10H [facility] Last Admin: 02/21/23 06:09 Dose: 100 mls/hr Documented By: MARK Insulin Glargine (Insulin Glargine,Hum.Rec.Anlog 100 Unit/Ml 10 Ml Vial) 14 unit SUBCUT DAILY [facility] Last Admin: 02/21/23 08:27 Dose: 14 unit Documented By: JOSE Insulin Human Lispro (Insulin Lispro 100 Unit/Ml 3 Ml Vial) 0 unit SUBCUT TIDAC [facility]; Protocol Last Admin: 02/21/23 08:27 Dose: 2 unit Documented By: JOSE Linezolid (Linezolid 600 Mg Tablet) 600 mg PO Q12H [facility] Last Admin: 02/21/23 06:06 Dose: 600 mg Documented By: MARK Ondansetron HCl (Ondansetron Hcl 4 Mg/2 Ml Vial) 4 mg IVPUSH Q8H PRN PRN Reason: Nausea and Vomiting Last Admin: 02/18/23 02:20 Dose: 4 mg Documented By: GRIFFIN Prednisone (Prednisone 20 Mg Tablet) 40 mg PO DAILY [facility] Last Admin: 02/21/23 08:28 Dose: 40 mg Documented By: JOSE Sodium Chloride (0.9 % Sodium Chloride Flush 3 Ml Syringe) 3 ml IVFLUSH QSHIFT [facility] Last Admin: 02/21/23 08:28 Dose: 3 ml Documented By: JOSE Labs 02/20/23 05:49 02/20/23 05:49 Labs: Laboratory Results - last 24 hr 02/20/23 02/20/23 02/20/23 11:10 16:11 20:15 POC Glucose 194 H 253 H 223 H 02/21/23 07:46 POC Glucose 160 H Assessment and Plan (1) Toxic metabolic encephalopathy: Status: Acute Plan 67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 acute metabolic encephalopathy due to acute UTI resolved Klebsiella and Enterobacter Levaquin fatigue lethargy differential includes flare of PMR vs depression appears to be responding to increased steroids to 40mg daily, continue increased dose for now, then taper LEft elbow OM Continue Zyvox until 03/15/23 HTN Increased Amlodipine to 10mg Continue BB and Spironolactone Hyponatremia 2/2 medications holding torsemide imprvoed unspecified chf hold torsemide for now Hypokalemia resolved Type 2 DM SSI, lantus diabetic diet CKD 3 Stable disease history of CAD, PVD not on antiplatelet? DVT PPx Lovenox full code reason for continued hospitalization:safe dispo Time Spent With Patient Time: Total time managing care of this patient today ____ minutes. Quality Stroke Does the patient have a stroke diagnosis?: No VTE Prior VTE?: No VTE Risk Level:: Medical - moderate - high VTE Device Contraindication: Treatment Not Indicated VTE Drug Contraindication: N/A - Med Ordered
[2023-02-21 10:35] LABS: Glucose, Whole Blood 176 mg/dL (60-115)
[2023-02-21] MEDS: levoFLOXacin/D5W 500 MG/100 ML PIGGYBACK 100 MG IV (13:09)
[2023-02-21 16:00] VITALS: BP 142/67; PULSE 67; RESP 14; TEMP 36.2; O2SAT 98
[2023-02-21 16:42] LABS: Glucose, Whole Blood 218 mg/dL (60-115)
[2023-02-21 19:33] VITALS: BP 143/92; PULSE 72; RESP 22; TEMP 36.6; O2SAT 97
[2023-02-21] MEDS: Enoxaparin Sodium 40 MG/0.4 ML SYRINGE SUBCUT (19:36)
[2023-02-21] MEDS: Famotidine 20 MG TABLET 40 MG PO (20:08)
[2023-02-21 20:37] LABS: Glucose, Whole Blood 151 mg/dL (60-115)
[2023-02-22 04:00] VITALS: BP 120/71; PULSE 90; RESP 22; TEMP 36.6; O2SAT 97
[2023-02-22] MEDS: Acetaminophen 325 MG TABLET 650 MG PO ×3 (04:18→18:16)
[2023-02-22] MEDS: Baclofen 10 MG TABLET PO ×2 (04:20→18:17)
[2023-02-22] MEDS: Linezolid 600 MG TABLET PO ×2 (06:08→18:09)
[2023-02-22] MEDS: 0.9 % Sodium Chloride 1,000 ML 100 ML IVCONT (06:10)
[2023-02-22 07:57] LABS: Glucose, Whole Blood 80 mg/dL (60-115)
--- NOTE | 2023-02-22 08:02 | HO.PM.IMPN ---
Subjective Subjective Date of Service: 02/22/23 Interval History: feeling a bit better Physical Exam Vital Signs: Vital Signs: Last Vital Signs Temp 97.9 F 02/22/23 04:00 Pulse 90 02/22/23 04:00 Resp 22 H 02/22/23 04:00 BP 120/71 02/22/23 04:00 Pulse Ox 97 02/22/23 04:00 O2 Del Method Room Air 02/22/23 04:00 O2 Flow Rate 96 02/16/23 19:35 BMI result Body Mass Index 27.1 General: AO X 3, no acute distress Resp: CTA bilateral, no accessory muscles used CVS: S1,S2,RRR GI: soft, non tender, non distended Neuro: motor grossly intact, alert Psych: appropriate affect, appropriate insight Objective Data Active Medications Acetaminophen (Acetaminophen 325 Mg Tablet) 650 mg PO Q4H PRN PRN Reason: Pain, Moderate(Pain Scale 4-6) Last Admin: 02/22/23 04:18 Dose: 650 mg Documented By: YULIA Amlodipine Besylate (Amlodipine Besylate 10 Mg Tablet) 10 mg PO DAILY [facility]; Protocol Last Admin: 02/21/23 08:28 Dose: 10 mg Documented By: JOSE Baclofen (Baclofen 10 Mg Tablet) 10 mg PO BID PRN PRN Reason: muscle spasm Last Admin: 02/22/23 04:20 Dose: 10 mg Documented By: YULIA Carvedilol (Carvedilol 25 Mg Tablet) 25 mg PO BIDWM [facility]; Protocol Last Admin: 02/21/23 17:07 Dose: 25 mg Documented By: JOSE Ezetimibe (Ezetimibe 10 Mg Tablet) 10 mg PO DAILY [facility] Last Admin: 02/21/23 08:28 Dose: 10 mg Documented By: JOSE Enoxaparin Sodium (Enoxaparin Sodium 40 Mg/0.4 Ml Syringe) 40 mg SUBCUT Q24H [facility] Last Admin: 02/21/23 19:36 Dose: 40 mg Documented By: YULIA Famotidine (Famotidine 20 Mg Tablet) 40 mg PO BEDTIME [facility] Last Admin: 02/21/23 20:08 Dose: 40 mg Documented By: YULIA Promethazine HCl 6.25 mg/ (Sodium Chloride) 50.25 mls @ 201 mls/hr IV ONCE PRN PRN Reason: Nausea Levofloxacin (Levaquin) 500 mg in 100 mls @ 100 mls/hr IV Q24H [facility] Last Infusion: 02/21/23 14:49 Dose: 0 mls/hr Documented By: JOSE Insulin Glargine (Insulin Glargine,Hum.Rec.Anlog 100 Unit/Ml 10 Ml Vial) 14 unit SUBCUT DAILY [facility] Last Admin: 02/21/23 08:27 Dose: 14 unit Documented By: JOSE Insulin Human Lispro (Insulin Lispro 100 Unit/Ml 3 Ml Vial) 0 unit SUBCUT TIDAC [facility]; Protocol Last Admin: 02/21/23 17:06 Dose: 4 unit Documented By: JOSE Linezolid (Linezolid 600 Mg Tablet) 600 mg PO Q12H [facility] Last Admin: 02/22/23 06:08 Dose: 600 mg Documented By: YULIA Ondansetron HCl (Ondansetron Hcl 4 Mg/2 Ml Vial) 4 mg IVPUSH Q8H PRN PRN Reason: Nausea and Vomiting Last Admin: 02/18/23 02:20 Dose: 4 mg Documented By: VIRIDIANAOIC Prednisone (Prednisone 20 Mg Tablet) 40 mg PO DAILY [facility] Last Admin: 02/21/23 08:28 Dose: 40 mg Documented By: JOSE Sodium Chloride (0.9 % Sodium Chloride Flush 3 Ml Syringe) 3 ml IVFLUSH QSHIFT [facility] Last Admin: 02/21/23 20:11 Dose: Not Given Documented By: YULIA Non-Admin Reason: IV Running Labs 02/20/23 05:49 02/20/23 05:49 Labs: Laboratory Results - last 24 hr 02/21/23 02/21/23 02/21/23 07:46 10:30 16:35 POC Glucose 160 H 176 H 218 H 02/21/23 02/22/23 20:17 07:48 POC Glucose 151 H 80 Assessment and Plan (1) Toxic metabolic encephalopathy: Status: Acute Plan 67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 acute metabolic encephalopathy due to acute UTI resolved Klebsiella and Enterobacter completed course of Levaquin fatigue lethargy differential includes flare of PMR vs depression appears to be responding to increased steroids to 40mg daily, continue increased dose for now, then taper LEft elbow OM Continue Zyvox until 03/15/23 HTN Increased Amlodipine to 10mg Continue BB and Spironolactone Hyponatremia 2/2 medications holding torsemide improved unspecified chf hold torsemide for now Hypokalemia resolved Type 2 DM SSI, lantus diabetic diet CKD 3 Stable disease history of CAD, PVD not on antiplatelet? DVT PPx Lovenox full code reason for continued hospitalization:safe dispo Time Spent With Patient Time: Total time managing care of this patient today ____ minutes. Quality Stroke Does the patient have a stroke diagnosis?: No VTE Prior VTE?: No VTE Risk Level:: Medical - moderate - high VTE Device Contraindication: Treatment Not Indicated VTE Drug Contraindication: N/A - Med Ordered
[2023-02-22] MEDS: 0.9 % Sodium Chloride Flush 3 ML SYRINGE IVFLUSH ×3 (08:09→21:04)
[2023-02-22] MEDS: carvediloL 25 MG TABLET PO ×2 (08:10→17:07)
[2023-02-22] MEDS: amLODIPine Besylate 10 MG TABLET PO (08:10)
[2023-02-22] MEDS: predniSONE 20 MG TABLET 40 MG PO (08:10)
[2023-02-22] MEDS: Ezetimibe 10 MG TABLET PO (08:10)
[2023-02-22 11:36] LABS: Glucose, Whole Blood 140 mg/dL (60-115)
[2023-02-22 16:00] VITALS: BP 163/73; PULSE 86; RESP 20; TEMP 36.3; O2SAT 95
[2023-02-22 16:34] LABS: Glucose, Whole Blood 241 mg/dL (60-115)
[2023-02-22] MEDS: Insulin Lispro 100 UNIT/ML 3 ML VIAL SUBCUT (17:07)
[2023-02-22] MEDS: Enoxaparin Sodium 40 MG/0.4 ML SYRINGE SUBCUT (18:09)
[2023-02-22 19:49] LABS: Glucose, Whole Blood 208 mg/dL (60-115)
[2023-02-22 20:09] VITALS: BP 160/74; PULSE 83; RESP 20; TEMP 36.8; O2SAT 96
[2023-02-22] MEDS: Famotidine 20 MG TABLET 40 MG PO (21:04)
[2023-02-23 03:35] VITALS: BP 143/88; PULSE 84; RESP 18; TEMP 36.2; O2SAT 97
[2023-02-23] MEDS: Acetaminophen 325 MG TABLET 650 MG PO ×2 (06:06→14:21)
[2023-02-23] MEDS: Linezolid 600 MG TABLET PO (06:07)
[2023-02-23 07:23] LABS: Glucose, Whole Blood 118 mg/dL (60-115)
[2023-02-23 07:31] VITALS: BP 142/80; PULSE 82; RESP 16; TEMP 36; O2SAT 94
[2023-02-23] MEDS: Ezetimibe 10 MG TABLET PO (08:35)
[2023-02-23] MEDS: Insulin Glargine,Hum.rec.anlog 100 UNIT/ML 10 ML VIAL 14 UNIT SUBCUT (08:35)
[2023-02-23] MEDS: predniSONE 20 MG TABLET 40 MG PO (08:35)
[2023-02-23] MEDS: amLODIPine Besylate 10 MG TABLET PO (08:35)
[2023-02-23] MEDS: carvediloL 25 MG TABLET PO (08:35)
[2023-02-23] MEDS: 0.9 % Sodium Chloride Flush 3 ML SYRINGE IVFLUSH (08:35)
--- NOTE | 2023-02-23 08:46 | HO.PM.IMPN ---
Subjective Subjective Date of Service: 02/23/23 Interval History: feeling a bit better Physical Exam Vital Signs: Vital Signs: Last Vital Signs Temp 96.8 F 02/23/23 07:31 Pulse 82 02/23/23 07:31 Resp 16 02/23/23 07:31 BP 142/80 H 02/23/23 07:31 Pulse Ox 94 02/23/23 07:31 O2 Del Method Room Air 02/23/23 03:35 O2 Flow Rate 96 02/16/23 19:35 BMI result Body Mass Index 27.1 General: AO X 3, no acute distress Resp: CTA bilateral, no accessory muscles used CVS: S1,S2,RRR GI: soft, non tender, non distended Neuro: motor grossly intact, alert Psych: appropriate affect, appropriate insight Objective Data Active Medications Acetaminophen (Acetaminophen 325 Mg Tablet) 650 mg PO Q4H PRN PRN Reason: Pain, Moderate(Pain Scale 4-6) Last Admin: 02/23/23 06:06 Dose: 650 mg Documented By: ADELAIDA Amlodipine Besylate (Amlodipine Besylate 10 Mg Tablet) 10 mg PO DAILY [facility]; Protocol Last Admin: 02/23/23 08:35 Dose: 10 mg Documented By: FRANK Baclofen (Baclofen 10 Mg Tablet) 10 mg PO BID PRN PRN Reason: muscle spasm Last Admin: 02/22/23 18:17 Dose: 10 mg Documented By: JOSE Carvedilol (Carvedilol 25 Mg Tablet) 25 mg PO BIDWM [facility]; Protocol Last Admin: 02/23/23 08:35 Dose: 25 mg Documented By: FRANK Ezetimibe (Ezetimibe 10 Mg Tablet) 10 mg PO DAILY [facility] Last Admin: 02/23/23 08:35 Dose: 10 mg Documented By: FRANK Enoxaparin Sodium (Enoxaparin Sodium 40 Mg/0.4 Ml Syringe) 40 mg SUBCUT Q24H [facility] Last Admin: 02/22/23 18:09 Dose: 40 mg Documented By: JOSE Famotidine (Famotidine 20 Mg Tablet) 40 mg PO BEDTIME [facility] Last Admin: 02/22/23 21:04 Dose: 40 mg Documented By: ADELAIDA Promethazine HCl 6.25 mg/ (Sodium Chloride) 50.25 mls @ 201 mls/hr IV ONCE PRN PRN Reason: Nausea Insulin Glargine (Insulin Glargine,Hum.Rec.Anlog 100 Unit/Ml 10 Ml Vial) 14 unit SUBCUT DAILY [facility] Last Admin: 02/23/23 08:35 Dose: 14 unit Documented By: FRANK Insulin Human Lispro (Insulin Lispro 100 Unit/Ml 3 Ml Vial) 0 unit SUBCUT TIDAC [facility]; Protocol Last Admin: 02/23/23 08:35 Dose: Not Given Documented By: FRANK Non-Admin Reason: No Insulin Coverage Linezolid (Linezolid 600 Mg Tablet) 600 mg PO Q12H [facility] Last Admin: 02/23/23 06:07 Dose: 600 mg Documented By: ANNMARIEORALGaurang Ondansetron HCl (Ondansetron Hcl 4 Mg/2 Ml Vial) 4 mg IVPUSH Q8H PRN PRN Reason: Nausea and Vomiting Last Admin: 02/18/23 02:20 Dose: 4 mg Documented By: ANTOIC Prednisone (Prednisone 20 Mg Tablet) 40 mg PO DAILY [facility] Last Admin: 02/23/23 08:35 Dose: 40 mg Documented By: FRANK Sodium Chloride (0.9 % Sodium Chloride Flush 3 Ml Syringe) 3 ml IVFLUSH QSHIFT [facility] Last Admin: 02/23/23 08:35 Dose: 3 ml Documented By: FRANK Labs 02/20/23 05:49 02/20/23 05:49 Labs: Laboratory Results - last 24 hr 02/22/23 02/22/23 02/22/23 11:32 16:27 19:29 POC Glucose 140 H 241 H 208 H 02/23/23 07:18 POC Glucose 118 H Assessment and Plan (1) Toxic metabolic encephalopathy: Status: Acute Plan 67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 acute metabolic encephalopathy due to acute UTI resolved Klebsiella and Enterobacter completed course of Levaquin fatigue lethargy differential includes flare of PMR vs depression appears to be responding to increased steroids to 40mg daily, continue increased dose for now, then taper LEft elbow OM Continue Zyvox until 03/15/23 HTN Increased Amlodipine to 10mg Continue BB and Spironolactone Hyponatremia 2/2 medications holding torsemide improved unspecified chf hold torsemide for now Hypokalemia resolved Type 2 DM SSI, lantus diabetic diet CKD 3 Stable disease history of CAD, PVD not on antiplatelet? DVT PPx Lovenox full code reason for continued hospitalization:auth Time Spent With Patient Time: Total time managing care of this patient today ____ minutes. Quality Stroke Does the patient have a stroke diagnosis?: No VTE Prior VTE?: No VTE Risk Level:: Medical - moderate - high VTE Device Contraindication: Treatment Not Indicated VTE Drug Contraindication: N/A - Med Ordered
[2023-02-23 11:10] LABS: Glucose, Whole Blood 171 mg/dL (60-115)
[2023-02-23] MEDS: Insulin Lispro 100 UNIT/ML 3 ML VIAL SUBCUT (11:16)
--- NOTE | 2023-02-23 12:33 | MHC.CM.PN ---
Addendum entered by Sara Palacios 02/23/23 14:11: BLS TRANSPORT ARRANGED FOR 1530 HOURS WITH [facility] A VM MESSAGE WAS LEFT FOR PTS , [phone], INFORMING HIM OF DC TIME AND REVIEWING PTS MEDICARE RIGHTS Addendum entered by Sara Palacios 02/23/23 13:26: CM RECEIVED A RESPONSE FROM MYRIAM AT [facility] WHO INDICATED SHE IS COVERING TODAY SHE STATED SHE WILL CHECK WITH THE SNF AND GET BACK TO WITH A TIME FOR TRANSPORT Original Note: PT WAS CLEARED TO DC ON THURSDAY HOWEVER STR AUTH WAS NOT OBTAINED PRIOR TO THE END OF THE WORK DAY PTS INSURANCE WAS CLOSED THROUGH THE WEEKEND CM MESSAGED [facility] LIAISON THIS MORNING REQUESTING UPDATES, HOWEVER THERE WAS NO RESPONSE CM SENT SEVERAL MORE MESSAGES WITH NO RESPONSE CM CALLED THE INTAKE NUMBER [phone] AND SPOKE TO MABLE WHO REPORTS IT APPEARS THE AUTH IS IN, HOWEVER KAYLEE WOULD NEED TO BE THE ONE CONTACTED TO COORDINATE ADMISSION SHE CONFIRMED [facility]' PHONE NUMBER [phone] OF NOTE: HAS LEFT TWO VM MESSAGES FOR KAYLEE WELL A TEXT AT THIS NUMBER CM WILL AWAIT RESPONSE, AND CALL MABLE BACK IF ONE IS NOT RECEIVED
[2023-02-23] MEDS: Baclofen 10 MG TABLET PO (14:21)
[2023-02-23 15:03] VITALS: BP 142/80; PULSE 82; O2SAT 94
== END 2023-02-23 15:30 | disposition skilled nursing facility (03) | DRG 689 ==
LOC: HO.ED 02-14 16:09 → HO.EDOVER 02-14 18:31 → HO.S3 02-14 18:33
PROVIDERS: Emergency Medicine; Physician Assistant; Admitting Provider Student in an Organized Health Care Education/Training Program; Emergency Provider Emergency Medicine Emergency Medical Services; PCP Family Medicine; Visit Provider Internal Medicine
DX: N39.0 Urinary tract infection, site not specified (principal); G92.9 Unspecified toxic encephalopathy; E87.1 Hypo-osmolality and hyponatremia; I13.0 Hypertensive heart and chronic kidney disease with heart failure and stage 1 through stage 4 chronic kidney disease, or unspecified chronic kidney disease; M86.671 Other chronic osteomyelitis, right ankle and foot; E11.69 Type 2 diabetes mellitus with other specified complication; M35.3 Polymyalgia rheumatica; B96.1 Klebsiella pneumoniae [K. pneumoniae] as the cause of diseases classified elsewhere; B96.89 Other specified bacterial agents as the cause of diseases classified elsewhere; I25.10 Atherosclerotic heart disease of native coronary artery without angina pectoris; I50.9 Heart failure, unspecified; E11.51 Type 2 diabetes mellitus with diabetic peripheral angiopathy without gangrene; E86.0 Dehydration; F32.A Depression, unspecified; T50.1X5A Adverse effect of loop [high-ceiling] diuretics, initial encounter; E87.6 Hypokalemia; E11.22 Type 2 diabetes mellitus with diabetic chronic kidney disease; N18.30 Chronic kidney disease, stage 3 unspecified; Z79.4 Long term (current) use of insulin; Z79.52 Long term (current) use of systemic steroids; Z79.899 Other long term (current) drug therapy
CPT/HCPCS: 36415; 70450; 71045; 73502; 80048; 80053; 80076; 81001; 82947; 83605; 83690; 83735; 84443; 84484; 85007; 85025; 85027; 85652; 86140; 87040; 87086; 87088; 87186; 93005; 97116; 97162; 97530; 99285; J0696; J1650; J1956; J2405; J2920

== ENCOUNTER → 2023-02-12 23:19 | Outpatient (BNV) | payer MEDICARE, SELFPAY | PROVIDERS: Emergency Provider Emergency Medicine; PCP Family Medicine; Visit Provider Internal Medicine Cardiovascular Disease | DX: R53.1 Weakness (principal) | CPT/HCPCS: 93010 ==

== ENCOUNTER → 2023-02-14 18:10 | Outpatient (BNV) | payer MEDICARE, SELFPAY | PROVIDERS: Admitting Provider Student in an Organized Health Care Education/Training Program; Emergency Provider Emergency Medicine Emergency Medical Services; PCP Family Medicine; Visit Provider Student in an Organized Health Care Education/Training Program | DX: G92.8 Other toxic encephalopathy (principal) | CPT/HCPCS: 99222; 99223; 99231; 99232; 99233; 99239 ==

== ENCOUNTER 2023-02-28 18:58 | Inpatient (IN) | payer MEDICARE, OTHER, SELFPAY ==
--- NOTE | ~2023-02-28 | CT_ITS ---
EXAMINATION: CT HEAD WITHOUT CONTRAST CLINICAL INFORMATION: Altered mental status. COMPARISON: CT head 02/14/2023. TECHNIQUE: Contiguous axial imaging was performed from the skull base to vertex without intravenous administration of contrast. This CT examination was performed using dose optimization techniques as appropriate, variously including the following: *Automated exposure control *Adjustment of mA and/or kV according to patient size (this includes techniques or standardized protocols for targeted exams where dose is matched to indication/reason for exam; i.e. extremities or head) *Use of iterative reconstruction technique DLP: 5.12 mGy-cm CT/CT head/brain wo IV con FINDINGS/IMPRESSION: Only a single motocross racer view was obtained. Nondiagnostic examination. According to technologist note, patient before re-scanned could be performed .
--- NOTE | ~2023-02-28 | XR_ITS ---
EXAMINATION: XR CHEST CLINICAL INFORMATION: Altered mental status. COMPARISON: Chest radiograph 02/14/2023. TECHNIQUE: Frontal view of the chest was obtained. FINDINGS: Low lung volumes with bibasilar streaky opacities. No pleural effusion or pneumothorax. No significant cardiomediastinal contour abnormality, stable prominence of the cardiomediastinal silhouette. No acute osseous findings. Nonspecific gaseous distention of the bowel in the upper abdomen. XR/XR chest 1V IMPRESSION: 1. Low lung volumes with bibasilar streaky opacities favored to represent subsegmental atelectasis, less likely aspiration or developing pneumonia. Clinical correlation recommended. 2. Nonspecific gaseous distention of the bowel in the upper abdomen.
[2023-02-28 19:05] VITALS: BP 177/88; PULSE 70
--- NOTE | 2023-02-28 19:22 | ED.GENADULT ---
HPI - General Adult General Chief complaint: Abdominal Pain Stated complaint: ABD PAIN FOR 1 HR Time Seen by Provider: 02/28/23 19:22 Source: patient and EMS Mode of arrival: EMS Limitations: altered mental status History of Present Illness HPI narrative: Patient is a 67 year old assigned female at with a history of osteomyelitis presenting to the emergency department today with increased altered mental status and nausea. SNF staff states that the patient has been refusing things by mouth but they have been continuing to give her subq insulin. Patient is altered and unable to answer questions appropriately at this time. Onset (ago): hour(s) Severity: moderate Related Data Home Medications Medication Instructions Recorded Confirmed carvedilol 25 mg tablet 25 mg PO BIDWM 12/17/22 02/13/23 gabapentin 100 mg capsule 200 mg PO TID PRN Pain 12/17/22 02/13/23 insulin degludec 100 unit/mL (3 20 unit subcut DAILY 12/17/22 02/13/23 mL) subcutaneous pen (Tresiba FlexTouch U-100 insulin) insulin lispro 100 unit/mL 1 sliding scale dose subcut TIDAC 12/17/22 02/13/23 subcutaneous cartridge (Humalog U-100 Insulin) liraglutide 0.6 mg/0.1 mL (18 mg/3 1.8 mg subcut DAILY 12/17/22 02/13/23 mL) subcutaneous pen injector (Victoza 3-Delmer) magnesium hydroxide 400 mg/5 mL 400 mg PO DAILY 12/17/22 02/13/23 oral suspension (Dulcolax (magnesium hydroxide)) spironolactone 25 mg tablet 25 mg PO BID 12/17/22 02/13/23 acetaminophen 325 mg tablet 650 mg PO Q6H PRN Pain 01/30/23 02/13/23 (Tylenol) ezetimibe 10 mg tablet 10 mg PO DAILY 01/30/23 02/13/23 famotidine 40 mg tablet 40 mg PO BEDTIME 01/30/23 02/13/23 loratadine-pseudoephedrine ER 10 1 tab PO DAILY PRN Allergy Symptoms 01/30/23 02/13/23 mg-240 mg tablet,extended [id number] (Claritin-D 24 Hour) Previous Rx's Medication Instructions Recorded linezolid 600 mg tablet 600 mg PO Q12H #82 tabs 02/02/23 baclofen 10 mg tablet 10 mg PO BID PRN muscle spasm #10 02/09/23 tabs oxycodone 5 mg tablet 5 mg PO Q8H PRN pain #10 tabs 02/09/23 amlodipine 10 mg tablet 10 mg PO DAILY #0 tabs 02/20/23 prednisone 20 mg tablet 40 mg PO DAILY #0 tabs 02/20/23 Allergies Allergy/AdvReac Type Severity Reaction Status Date / Time lisinopril Allergy Severe Cough Verified 02/28/23 19:29 morphine AdvReac Severe Hallucinati Verified 02/28/23 19:29 ons Review of Systems Review of Systems: Yes Unobtainable due to mental status (patient is altered at this time) Constitutional: Constitutional: Denies fever(s) Eyes: Eyes: Denies eye discharge ENT: Denies neck mass Cardiovascular: Cardiovascular: Denies Loss of Consciousness and Denies dyspnea Respiratory: Respiratory: Denies dyspnea Gastrointestinal: Gastrointestinal: Reports no additional gastrointestinal complaints, Denies abdominal pain, Denies melena, Denies hematochezia, Denies change in bowel habits and Denies change in stool character Genitourinary: Genitourinary: Denies hematuria, Denies urinary frequency, Denies dysuria, Denies urinary incontinence, Denies urinary hesitancy and Denies urinary urgency Musculoskeletal: Musculoskeletal: Denies deformity Neurologic: Reports confusion Psychiatric: Psychiatric: Reports confusion Endocrine: Endocrine: Reports no additional endocrine complaints Hematologic/Lymphatic: Hematologic/Lymphatic: Reports no additional hematologic/lymphatic complaints Allergic/Immunologic: Allergic/Immunologic: Reports no additional allergic/immunologic complaints REPLACED BY [facility] Past Medical History Attestation statement: The following information was validated with the patient. Source: old records reviewed, nursing notes reviewed and other (SNF staff and SNF paperwork) Medical History Artery occlusion Cataract Diabetes Kidney disease Osteomyelitis Polymazia Smoker Surgical History H/O section H/O: hysterectomy History of total knee replacement History of urostomy Hx of cholecystectomy Social History Social History Household Members: Spouse Housing: House Do you presently have visiting nurse or other home services: No Alcohol intake: never Patient Tobacco Use Status: Never used Tobacco Tobacco use type: Cigarette Cigarettes Per Day: 5 Smoked in Last 30 Days: No e-Cigarette/Vaping Use: Never Used Second Hand Smoke Exposure: No Use of substances other than those prescribed or required for medical reasons: No Advance Directives: No Advance Directives Information Provided: No Nutrition Risks: No Nutritional Risk service: No Physical Exam ED Vital Signs: Vital Signs - 24 hr 02/28/23 19:27 02/28/23 20:18 02/28/23 21:53 Pulse Rate 85 79 90 Respiratory Rate 14 18 20 Blood Pressure 113/76 131/74 136/73 Pulse Oximetry 93 96 97 Oxygen Delivery Method Room Air Room Air Room Air 02/28/23 22:31 Pulse Rate 88 Respiratory Rate 24 H Blood Pressure 159/62 H Pulse Oximetry 95 Oxygen Delivery Method Room Air BMI result Body Mass Index 25.5 Const General: confusion Nutritional Appearance: well nourished Orientation/consciousness: confusion Limitations: no limitations HENMT Head: Yes normal to inspection and Yes atraumatic Ears: hearing grossly normal bilaterally and external ears normal General nose exam: Normal external nose present, no nasal discharge noted and no epistaxis Face and sinus: Yes normal facial exam, No abrasion and No laceration Mouth: Normal oral and palatal mucosa present, no drooling and no muffled voice Eyes General: appearance normal, both eyes and all related structures Periorbital: periorbital findings normal Eyelids: Yes eyelids normal Conjunctivae: conjunctivae normal Pupils: Equal, round and reactive pupils present EOM: EOMs intact bilaterally Neck Neck: Yes normal visual inspection, Yes full ROM and Yes no lymphadenopathy Chest Chest palpation & inspection: normal inspection of the chest Resp Effort & Inspection: normal respiratory effort and able to speak in complete sentences Auscultation: rhonchi throughout Cardio Rate: tachycardic Rhythm: abnormal rhythm irregularly irregular GI Inspection: Yes normal to inspection Palpation (GI): Soft to palpation, not firm, nontender and no guarding Skin Other: multiple skin tears throughout bilateral arms and legs Neuro General: confusion Cranial nerves: Yes Equal, round and reactive pupils present Motor exam (neuro): 5/5 motor strength present throughout Extrem Other: multipel skin tears to bilateral upper and lower extremities General: Yes full ROM and Yes capillary refill normal Psych Appearance: grossly normal Mental Status: mental status grossly normal Affect: normal affect Attitude: cooperative Thought process: Normal thought process present Thought content: Normal thought content present Insight: Good insight present (Psych) Medications Administered Generic Name Dose Route Start Last Admin Trade Name Freq PRN Reason Stop Dose Admin Heparin Sodium (Porcine) 5,000 unit 02/28/23 23:00 02/28/23 23:01 Heparin Sodium,Porcine 5,000 Unit/Ml Vial SUBCUT Not Given Q12H CHANDRIKA Dextrose 1,000 mls @ 75 mls/hr 02/28/23 19:30 02/28/23 23:41 D10 IVCONT 75 mls/hr .[id number] CHANDRIKA Infusion Piperacillin Sod/Tazobactam 50 mls @ 100 mls/hr 02/28/23 23:00 02/28/23 23:41 Sod 3.375 gm/ Sodium Chloride IV Infused Q6H CHANDRIKA Infusion Sodium Chloride 3 ml 03/01/23 00:00 02/28/23 23:44 0.9 % Sodium Chloride Flush 3 Ml Syringe IVFLUSH Not Given QSHIFT CHANDRIKA Discontinued Medications Generic Name Dose Route Start Last Admin Trade Name Freq PRN Reason Stop Dose Admin Dextrose 25 gm 02/28/23 23:05 02/28/23 23:10 Dextrose 50 % 25 Gm/50 Ml Syringe IVPUSH 02/28/23 23:06 25 gm ONCE ONE Administration Medical Decision Making Medical Decision Making MDM Narrative: Patient is a 67 year old assigned female at with a history of osteomyelitis currently on antibiotics presenting to the emergency department today with increased confusion. Patient's physical exam was as noted in the physical exam portion of this chart. Patient's blood work showed an elevated WBC count 15.4, POC sugar of 46, and sodium of 129. There was an initial lab error in the first CMP that resulted in an inaccurate sugar of 1008 and a sodium of 115. When this was called, the patient's POC was immediately checked and was 70. Patient was started on D10 upon arrival. Patient's urine showed no acute process. Patient's chest x-ray showed low lung volumes with bibasilar streaky opacities favored to represent subsegmental atelectasis vs. pneumonia. I spoke to the hospitalist who agreed to admission. Patient's clinical presentation was not consistent with sepsis (02/28/2023 @2100). I explained my physical exam findings as well as all test results to the patient. I answered all questions asked by the patient. Differential Diagnosis Differential Diagnoses: The differential diagnosis associated with the presentation includes Hypoglycemia Encephalopathy AMS Admission/Observation Consideration of admission/observation: Escalation of care including admission/observation considered Patient admitted. Consult Healthcare Provider Management of the patient was discussed with: Hospitalist (agreed to admission) Lab Data [facility] Lab Attestation statement: I reviewed the patient's lab results. My interpretation of these results are in the MDM portion of this chart. 02/28/23 19:46 02/28/23 21:10 Labs: Lab Results 02/28/23 02/28/23 02/28/23 Range/Units 19:17 19:46 19:46 WBC 15.4 H (4.8-10.8) X10*3/uL RBC 3.74 L (4.20-5.50) X10*6/uL Hgb 10.7 L (12.0-16.0) g/dl Hct 32.8 L (37.0-47.0) % MCV 87.7 (80.0-98.0) fL MCH 28.6 (27.0-33.0) pg MCHC 32.6 (31.0-35.0) g/dl RDW 15.3 (11.0-16.0) % Plt Count 124 L D (160-400) X10*3/uL MPV 10.9 (9.4-12.3) fL Immature Gran % (Auto) 1.0 H (0.0-0.4) % Neut % (Auto) 82.5 H (45-73) % Lymph % (Auto) 7.5 L (20-40) % Twiggs % (Auto) 8.9 (2-11) % Eos % (Auto) 0.0 (0-4) % Baso % (Auto) 0.1 (0-2) % Lymph # (Auto) 1.2 (1.2-4.9) X10*3/uL Twiggs # (Auto) 1.4 H (0.1-1.2) X10*3/uL Eos # (Auto) 0.0 (0.0-0.4) X10*3/uL Baso # (Auto) 0.0 (0.0-0.2) X10*3/uL Abs Immat Gran (auto) 0.16 H (0.00-0.03) X10*3/uL Absolute Neuts (auto) 12.7 H (2.0-8.3) x10*3/uL Absolute Nucleated RBC 0.000 (0.0-0.012) X10*3/uL Nucleated RBC % (auto) 0.0 (0.0-0.2) /100WBC PT (11.1-13.3) SEC INR (0.9-1.1) APTT (26.0-36.4) SEC VBG pH (7.32-7.43) VBG pCO2 mmHg VBG pO2 mmHg VBG HCO3 (22-26) mmol/L VBG O2 Saturation % VBG Base Excess mmol/L Sodium 115 L* (135-145) mmol/L Potassium 3.3 (3.3-5.1) mmol/L Chloride 87 L (96-108) mmol/L Carbon Dioxide 19 L (22-29) mmol/L Anion Gap 12 (12-20) BUN 15 (9-16) mg/dL Creatinine 1.20 (0.5-1.4) mg/dL Estim Creat Clear Calc 41.7 Estimated GFR 45 POC Glucose 46 L* (60-115) mg/dL Random Glucose 1008 H* (60-115) mg/dL Lactic Acid (0.5-2.0) mmol/L Calcium 8.3 L (8.4-10.2) mg/dL Magnesium 1.7 (1.6-2.6) mg/dL Total Bilirubin 1.3 H (0.0-1.0) mg/dL AST 10 (5-31) U/L ALT 14 (0-31) U/L Alkaline Phosphatase 105 (39-117) U/L Ammonia (13-55) umol/L Total Creatine Kinase (26-140) U/L Troponin I High Sens (<3.5-17.0) ng/L Total Protein 5.5 L (6.5-8.0) g/dL Albumin 3.4 L (3.5-5.0) g/dL COVID-19 (KEVIN) (Negative) COVID-19 Clin Com 02/28/23 02/28/23 02/28/23 Range/Units 19:46 19:46 19:46 WBC (4.8-10.8) X10*3/uL RBC (4.20-5.50) X10*6/uL Hgb (12.0-16.0) g/dl Hct (37.0-47.0) % MCV (80.0-98.0) fL MCH (27.0-33.0) pg MCHC (31.0-35.0) g/dl RDW (11.0-16.0) % Plt Count (160-400) X10*3/uL MPV (9.4-12.3) fL Immature Gran % (Auto) (0.0-0.4) % Neut % (Auto) (45-73) % Lymph % (Auto) (20-40) % Twiggs % (Auto) (2-11) % Eos % (Auto) (0-4) % Baso % (Auto) (0-2) % Lymph # (Auto) (1.2-4.9) X10*3/uL Tw[place]gs # (Auto) (0.1-1.2) X10*3/uL Eos # (Auto) (0.0-0.4) X10*3/uL Baso # (Auto) (0.0-0.2) X10*3/uL Abs Immat Gran (auto) (0.00-0.03) X10*3/uL Absolute Neuts (auto) (2.0-8.3) x10*3/uL Absolute Nucleated RBC (0.0-0.012) X10*3/uL Nucleated RBC % (auto) (0.0-0.2) /100WBC PT 12.8 (11.1-13.3) SEC INR 1.1 (0.9-1.1) APTT 24.2 L (26.0-36.4) SEC VBG pH (7.32-7.43) VBG pCO2 mmHg VBG pO2 mmHg VBG HCO3 (22-26) mmol/L VBG O2 Saturation % VBG Base Excess mmol/L Sodium (135-145) mmol/L Potassium (3.3-5.1) mmol/L Chloride (96-108) mmol/L Carbon Dioxide (22-29) mmol/L Anion Gap (12-20) BUN (9-16) mg/dL Creatinine (0.5-1.4) mg/dL Estim Creat Clear Calc Estimated GFR POC Glucose (60-115) mg/dL Random Glucose (60-115) mg/dL Lactic Acid 1.3 (0.5-2.0) mmol/L Calcium (8.4-10.2) mg/dL Magnesium (1.6-2.6) mg/dL Total Bilirubin (0.0-1.0) mg/dL AST (5-31) U/L ALT (0-31) U/L Alkaline Phosphatase (39-117) U/L Ammonia (13-55) umol/L Total Creatine Kinase (26-140) U/L Troponin I High Sens 22.3 H (<3.5-17.0) ng/L Total Protein (6.5-8.0) g/dL Albumin (3.5-5.0) g/dL COVID-19 (KEVIN) (Negative) COVID-19 Clin Com 02/28/23 02/28/23 02/28/23 Range/Units 19:47 19:59 20:25 WBC (4.8-10.8) X10*3/uL RBC (4.20-5.50) X10*6/uL Hgb (12.0-16.0) g/dl Hct (37.0-47.0) % MCV (80.0-98.0) fL MCH (27.0-33.0) pg MCHC (31.0-35.0) g/dl RDW (11.0-16.0) % Plt Count (160-400) X10*3/uL MPV (9.4-12.3) fL Immature Gran % (Auto) (0.0-0.4) % Neut % (Auto) (45-73) % Lymph % (Auto) (20-40) % Twiggs % (Auto) (2-11) % Eos % (Auto) (0-4) % Baso % (Auto) (0-2) % Lymph # (Auto) (1.2-4.9) X10*3/uL Tw[place]gs # (Auto) (0.1-1.2) X10*3/uL Eos # (Auto) (0.0-0.4) X10*3/uL Baso # (Auto) (0.0-0.2) X10*3/uL Abs Immat Gran (auto) (0.00-0.03) X10*3/uL Absolute Neuts (auto) (2.0-8.3) x10*3/uL Absolute Nucleated RBC (0.0-0.012) X10*3/uL Nucleated RBC % (auto) (0.0-0.2) /100WBC PT (11.1-13.3) SEC INR (0.9-1.1) APTT (26.0-36.4) SEC VBG pH (7.32-7.43) VBG pCO2 mmHg VBG pO2 mmHg VBG HCO3 (22-26) mmol/L VBG O2 Saturation % VBG Base Excess mmol/L Sodium (135-145) mmol/L Potassium (3.3-5.1) mmol/L Chloride (96-108) mmol/L Carbon Dioxide (22-29) mmol/L Anion Gap (12-20) BUN (9-16) mg/dL Creatinine (0.5-1.4) mg/dL Estim Creat Clear Calc Estimated GFR POC Glucose 67 70 (60-115) mg/dL Random Glucose (60-115) mg/dL Lactic Acid (0.5-2.0) mmol/L Calcium (8.4-10.2) mg/dL Magnesium (1.6-2.6) mg/dL Total Bilirubin (0.0-1.0) mg/dL AST (5-31) U/L ALT (0-31) U/L Alkaline Phosphatase (39-117) U/L Ammonia (13-55) umol/L Total Creatine Kinase (26-140) U/L Troponin I High Sens (<3.5-17.0) ng/L Total Protein (6.5-8.0) g/dL Albumin (3.5-5.0) g/dL COVID-19 (KEVIN) Negative (Negative) COVID-19 Clin Com See Note 02/28/23 02/28/23 02/28/23 Range/Units 20:32 20:32 20:34 WBC (4.8-10.8) X10*3/uL RBC (4.20-5.50) X10*6/uL Hgb (12.0-16.0) g/dl Hct (37.0-47.0) % MCV (80.0-98.0) fL MCH (27.0-33.0) pg MCHC (31.0-35.0) g/dl RDW (11.0-16.0) % Plt Count (160-400) X10*3/uL MPV (9.4-12.3) fL Immature Gran % (Auto) (0.0-0.4) % Neut % (Auto) (45-73) % Lymph % (Auto) (20-40) % Twiggs % (Auto) (2-11) % Eos % (Auto) (0-4) % Baso % (Auto) (0-2) % Lymph # (Auto) (1.2-4.9) X10*3/uL Twiggs # (Auto) (0.1-1.2) X10*3/uL Eos # (Auto) (0.0-0.4) X10*3/uL Baso # (Auto) (0.0-0.2) X10*3/uL Abs Immat Gran (auto) (0.00-0.03) X10*3/uL Absolute Neuts (auto) (2.0-8.3) x10*3/uL Absolute Nucleated RBC (0.0-0.012) X10*3/uL Nucleated RBC % (auto) (0.0-0.2) /100WBC PT (11.1-13.3) SEC INR (0.9-1.1) APTT (26.0-36.4) SEC VBG pH 7.54 H (7.32-7.43) VBG pCO2 23 mmHg VBG pO2 80 mmHg VBG HCO3 20 L (22-26) mmol/L VBG O2 Saturation 98.0 % VBG Base Excess -0.2 mmol/L Sodium (135-145) mmol/L Potassium (3.3-5.1) mmol/L Chloride (96-108) mmol/L Carbon Dioxide (22-29) mmol/L Anion Gap (12-20) BUN (9-16) mg/dL Creatinine (0.5-1.4) mg/dL Estim Creat Clear Calc Estimated GFR POC Glucose (60-115) mg/dL Random Glucose (60-115) mg/dL Lactic Acid (0.5-2.0) mmol/L Calcium (8.4-10.2) mg/dL Magnesium (1.6-2.6) mg/dL Total Bilirubin (0.0-1.0) mg/dL AST (5-31) U/L ALT (0-31) U/L Alkaline Phosphatase (39-117) U/L Ammonia 31 (13-55) umol/L Total Creatine Kinase 24 L (26-140) U/L Troponin I High Sens (<3.5-17.0) ng/L Total Protein (6.5-8.0) g/dL Albumin (3.5-5.0) g/dL COVID-19 (KEVIN) (Negative) COVID-19 Clin Com 02/28/23 02/28/23 02/28/23 Range/Units 21:03 21:10 21:10 WBC (4.8-10.8) X10*3/uL RBC (4.20-5.50) X10*6/uL Hgb (12.0-16.0) g/dl Hct (37.0-47.0) % MCV (80.0-98.0) fL MCH (27.0-33.0) pg MCHC (31.0-35.0) g/dl RDW (11.0-16.0) % Plt Count (160-400) X10*3/uL MPV (9.4-12.3) fL Immature Gran % (Auto) (0.0-0.4) % Neut % (Auto) (45-73) % Lymph % (Auto) (20-40) % Twiggs % (Auto) (2-11) % Eos % (Auto) (0-4) % Baso % (Auto) (0-2) % Lymph # (Auto) (1.2-4.9) X10*3/uL Twiggs # (Auto) (0.1-1.2) X10*3/uL Eos # (Auto) (0.0-0.4) X10*3/uL Baso # (Auto) (0.0-0.2) X10*3/uL Abs Immat Gran (auto) (0.00-0.03) X10*3/uL Absolute Neuts (auto) (2.0-8.3) x10*3/uL Absolute Nucleated RBC (0.0-0.012) X10*3/uL Nucleated RBC % (auto) (0.0-0.2) /100WBC PT (11.1-13.3) SEC INR (0.9-1.1) APTT (26.0-36.4) SEC VBG pH (7.32-7.43) VBG pCO2 mmHg VBG pO2 mmHg VBG HCO3 (22-26) mmol/L VBG O2 Saturation % VBG Base Excess mmol/L Sodium 129 L (135-145) mmol/L Potassium 4.0 D (3.3-5.1) mmol/L Chloride 98 (96-108) mmol/L Carbon Dioxide 21 L (22-29) mmol/L Anion Gap 14 (12-20) BUN 16 (9-16) mg/dL Creatinine 0.86 (0.5-1.4) mg/dL Estim Creat Clear Calc 58.2 Estimated GFR > 60 POC Glucose 77 (60-115) mg/dL Random Glucose 73 (60-115) mg/dL Lactic Acid (0.5-2.0) mmol/L Calcium 9.1 D (8.4-10.2) mg/dL Magnesium (1.6-2.6) mg/dL Total Bilirubin 1.4 H (0.0-1.0) mg/dL AST 11 (5-31) U/L ALT 16 (0-31) U/L Alkaline Phosphatase 104 (39-117) U/L Ammonia (13-55) umol/L Total Creatine Kinase (26-140) U/L Troponin I High Sens 22.1 H (<3.5-17.0) ng/L Total Protein 6.0 L (6.5-8.0) g/dL Albumin 3.8 (3.5-5.0) g/dL COVID-19 (KEVIN) (Negative) COVID-19 Clin Com 02/28/23 02/28/23 Range/Units 21:25 22:30 WBC (4.8-10.8) X10*3/uL RBC (4.20-5.50) X10*6/uL Hgb (12.0-16.0) g/dl Hct (37.0-47.0) % MCV (80.0-98.0) fL MCH (27.0-33.0) pg MCHC (31.0-35.0) g/dl RDW (11.0-16.0) % Plt Count (160-400) X10*3/uL MPV (9.4-12.3) fL Immature Gran % (Auto) (0.0-0.4) % Neut % (Auto) (45-73) % Lymph % (Auto) (20-40) % Twiggs % (Auto) (2-11) % Eos % (Auto) (0-4) % Baso % (Auto) (0-2) % Lymph # (Auto) (1.2-4.9) X10*3/uL Twiggs # (Auto) (0.1-1.2) X10*3/uL Eos # (Auto) (0.0-0.4) X10*3/uL Baso # (Auto) (0.0-0.2) X10*3/uL Abs Immat Gran (auto) (0.00-0.03) X10*3/uL Absolute Neuts (auto) (2.0-8.3) x10*3/uL Absolute Nucleated RBC (0.0-0.012) X10*3/uL Nucleated RBC % (auto) (0.0-0.2) /100WBC PT (11.1-13.3) SEC INR (0.9-1.1) APTT (26.0-36.4) SEC VBG pH (7.32-7.43) VBG pCO2 mmHg VBG pO2 mmHg VBG HCO3 (22-26) mmol/L VBG O2 Saturation % VBG Base Excess mmol/L Sodium (135-145) mmol/L Potassium (3.3-5.1) mmol/L Chloride (96-108) mmol/L Carbon Dioxide (22-29) mmol/L Anion Gap (12-20) BUN (9-16) mg/dL Creatinine (0.5-1.4) mg/dL Estim Creat Clear Calc Estimated GFR POC Glucose 83 102 (60-115) mg/dL Random Glucose (60-115) mg/dL Lactic Acid (0.5-2.0) mmol/L Calcium (8.4-10.2) mg/dL Magnesium (1.6-2.6) mg/dL Total Bilirubin (0.0-1.0) mg/dL AST (5-31) U/L ALT (0-31) U/L Alkaline Phosphatase (39-117) U/L Ammonia (13-55) umol/L Total Creatine Kinase (26-140) U/L Troponin I High Sens (<3.5-17.0) ng/L Total Protein (6.5-8.0) g/dL Albumin (3.5-5.0) g/dL COVID-19 (KEVIN) (Negative) COVID-19 Clin Com Independent Interpretation I performed an independent interpretation of an: EKG and Plain X-Ray Interpretation: My interpretation is in agreement with the radiologist's impression of this imaging study. EXAMINATION: XR CHEST CLINICAL INFORMATION: Altered mental status. COMPARISON: Chest radiograph 02/14/2023. TECHNIQUE: Frontal view of the chest was obtained. FINDINGS: Low lung volumes with bibasilar streaky opacities. No pleural effusion or pneumothorax. No significant cardiomediastinal contour abnormality, stable prominence of the cardiomediastinal silhouette. No acute osseous findings. Nonspecific gaseous distention of the bowel in the upper abdomen. XR/XR chest 1V IMPRESSION: 1.? Low lung volumes with bibasilar streaky opacities favored to represent subsegmental atelectasis, less likely aspiration or developing pneumonia. Clinical correlation recommended. 2.? Nonspecific gaseous distention of the bowel in the upper abdomen. Dictated By: Shari Quinones Signed By: Electronically signed by Uriah 02/28/232136 Vent. Rate: 099 BPM ? ? Atrial Rate: 099 BPM P-R Int: 132 ms? QRS Dur: 086 ms QT Int: 380 ms ? ? ? P-R-T Axes: -14 -30 080 degrees QTc Int: 487 ms ? Sinus rhythm with Premature ventricular complexes or Fusion complexes Left axis deviation Moderate voltage criteria for LVH, may be normal variant ( R in aVL , [place] product ) T wave abnormality, consider lateral ischemia Abnormal ECG When compared with ECG of 12-FEB-2023 23:45, Fusion complexes are now Present Premature ventricular complexes are now Present Premature atrial complexes are no longer Present T wave inversion now evident in Lateral leads DD/ 36 Radiology Impression Discussion of test interpretation with radiology: I have reviewed the radiologist's reading. Independent Historian Clinical information obtained from an independent historian. History obtained from or confirmed by: EMS (EMS provided additional history and confirmed the history provided by the SNF staff) and Other (SNF staff provided additional information and confirmed the information provided by EMS) External Record Review External record reviewed: Other (reviewed previous ED records and recent admission notes.) Chronic Conditions Patient?s care impacted by: Diabetes Critical Care Time Critical Care Time Critical Care Time: Yes Total Critical Care Time: 50 Attestation: I spent 50 minutes of Critical Care Time with this patient. This does not include time spent on separately reported billable procedures. Discharge Plan Discharge Clinical Impression: Hypoglycemia, Acute alteration in mental status Patient Disposition: Admitted As Inpatient
--- NOTE | 2023-02-28 19:24 | ECG_ITS ---
Test Reason : AMS Blood Pressure : / mmHG Vent. Rate : 099 BPM Atrial Rate : 099 BPM P-R Int : 132 ms QRS Dur : 086 ms QT Int : 380 ms P-R-T Axes : -14 -30 080 degrees QTc Int : 487 ms Sinus rhythm with Premature ventricular complexes or Fusion complexes Left axis deviation Moderate voltage criteria for LVH, may be normal variant ( R in aVL , [place] product ) T wave abnormality, consider lateral ischemia Abnormal ECG When compared with ECG of 12-FEB-2023 23:45, Fusion complexes are now Present Premature ventricular complexes are now Present Premature atrial complexes are no longer Present T wave inversion now evident in Lateral leads Referred By: Yina Kenny Electronically Signed By:Hunter Stanley
[2023-02-28 19:26] LABS: Glucose, Whole Blood 46 mg/dL (60-115)
[2023-02-28 19:27] VITALS: BP 113/76; PULSE 85; RESP 14; O2SAT 93; BMI 25.5
[2023-02-28] MEDS: Dextrose 10 % 1,000 ML 75 ML IVCONT (19:29)
[2023-02-28 19:53] LABS: Basophils Percent Auto 0.1 % (0-2); Hematocrit 32.8 % (37.0-47.0); Hemoglobin 10.7 g/dl (12.0-16.0); Imm Gran Abs Auto 0.16 X10*3/uL (0.00-0.03); Lymphocytes Absolute Auto 1.2 X10*3/uL (1.2-4.9); Lymphocytes Percent Auto 7.5 % (20-40); MANUAL DIFF FLAG NO; Mean Corpuscular HGB Conc 32.6 g/dl (31.0-35.0); Mean Corpuscular Hemoglobin 28.6 pg (27.0-33.0); Mean Corpuscular Volume 87.7 fL (80.0-98.0); Mean Platelet Volume 10.9 fL (9.4-12.3); Monocytes Absolute Auto 1.4 X10*3/uL (0.1-1.2); Monocytes Percent Auto 8.9 % (2-11); Neutrophils Absolute Auto 12.7 x10*3/uL (2.0-8.3); Neutrophils Percent Auto 82.5 % (45-73); Platelet Count 124 X10*3/uL (160-400); Red Blood Count 3.74 X10*6/uL (4.20-5.50); Red Cell Distribution Width 15.3 % (11.0-16.0); White Blood Count 15.4 X10*3/uL (4.8-10.8)
[2023-02-28 20:02] LABS: INTERNATIONAL NORM RATIO 1.1 (0.9-1.1); Prothrombin Time 12.8 SEC (11.1-13.3)
[2023-02-28 20:04] LABS: Lactic Acid 1.3 mmol/L (0.5-2.0)
[2023-02-28 20:05] LABS: Partial Thromboplastin Time 24.2 SEC (26.0-36.4)
[2023-02-28 20:08] LABS: Glucose, Whole Blood 67 mg/dL (60-115)
[2023-02-28 20:16] LABS: Troponin-I High Sensitivity 22.3 ng/L (<3.5-17.0)
[2023-02-28 20:16] LABS: COVID-19 Test Negative (Negative); IDNOW Serial# BCCEAD1C
[2023-02-28 20:18] VITALS: BP 131/74; PULSE 79; RESP 18; O2SAT 96
[2023-02-28 20:31] LABS: Alanine Aminotransferase 14 U/L (0-31); Albumin Level 3.4 g/dL (3.5-5.0); Alkaline Phosphatase 105 U/L (39-117); Anion Gap 12 (12-20); Aspartate Amino Transferase 10 U/L (5-31); Bilirubin Total 1.3 mg/dL (0.0-1.0); Blood Urea Nitrogen 15 mg/dL (9-16); Calcium 8.3 mg/dL (8.4-10.2); Carbon Dioxide 19 mmol/L (22-29); Chloride 87 mmol/L (96-108); Creatinine Clr Calc Pharmacy 41.7; Estimated Glomerular Filt Rate 45; Magnesium 1.7 mg/dL (1.6-2.6); Potassium 3.3 mmol/L (3.3-5.1); Total Protein 5.5 g/dL (6.5-8.0)
[2023-02-28 20:58] LABS: VBG Base Excess -0.2 mmol/L; VBG HCO3 20 mmol/L (22-26); VBG pCO2 23 mmHg; VBG pH 7.54 (7.32-7.43); VBG pO2 80 mmHg
[2023-02-28 21:02] LABS: Glucose Random 1008 mg/dL (60-115); Sodium 115 mmol/L (135-145)
[2023-02-28 21:07] LABS: Glucose, Whole Blood 77 mg/dL (60-115)
[2023-02-28 21:22] LABS: Ammonia 31 umol/L (13-55); Venous Blood Gas Refer to POC result
[2023-02-28 21:30] LABS: Glucose, Whole Blood 83 mg/dL (60-115)
[2023-02-28 21:44] LABS: Troponin-I High Sensitivity 22.1 ng/L (<3.5-17.0)
[2023-02-28 21:53] VITALS: BP 136/73; PULSE 90; RESP 20; O2SAT 97
[2023-02-28 21:55] LABS: Alanine Aminotransferase 16 U/L (0-31); Albumin Level 3.8 g/dL (3.5-5.0); Alkaline Phosphatase 104 U/L (39-117); Anion Gap 14 (12-20); Aspartate Amino Transferase 11 U/L (5-31); Bilirubin Total 1.4 mg/dL (0.0-1.0); Blood Urea Nitrogen 16 mg/dL (9-16); Calcium 9.1 mg/dL (8.4-10.2); Carbon Dioxide 21 mmol/L (22-29); Chloride 98 mmol/L (96-108); Creatinine Clr Calc Pharmacy 58.2; Estimated Glomerular Filt Rate > 60; Glucose Random 73 mg/dL (60-115); Sodium 129 mmol/L (135-145)
[2023-02-28 21:55] LABS: Glucose, Whole Blood 70 mg/dL (60-115)
[2023-02-28 22:31] VITALS: BP 159/62; PULSE 88; RESP 24; O2SAT 95
--- NOTE | 2023-02-28 22:43 | P.HPHOSP_ITS ---
History of Present Illness Date of Service: 02/28/23 Chief Complaint: altered 67-year-old female with past medical history of diabetes, osteomyelitis, history of toxic metabolic syndrome recently discharged from our hospital after being treated for encephalopathy in the setting of UTI comes into the hospital from [facility] with altered mental status and decreased p.o. intake. It appears the patient has been not using but the staff at [facility] have continue to give her subcu insulin which has made her hypoglycemic and was found to be hypoglycemic in the 50s in the ED. Patient was placed on D10 and further workup was obtained. Patient is very confused, unable to obtain much history from her therefore history is obtained mostly from EMR and ED PA. On arrival to the ED patient hemodynamically stable Labs are significant for WBC count of 15.4, with left shift, initial BMP was obtained appears to be completely inaccurate because it showed a s glucose of over 1000 when her POC was 80 on rpt checks, therefore repeat BMP showed a sodium 129, glucose of 73, while on D10, and troponin of 22, CPK of 24, UA negative, Chest x-ray shows infiltrate concerning for pneumonia Patient will be admitted for further management Review of Systems Review of Systems: Yes Unobtainable due to mental condition and Unobtainable due to mental status PMFSH Medical History Artery occlusion Cataract Diabetes Kidney disease Osteomyelitis Polymazia Smoker Surgical History H/O section H/O: hysterectomy History of total knee replacement History of urostomy Hx of cholecystectomy Social History Household Members: Spouse Housing: House Do you presently have visiting nurse or other home services: No Alcohol intake: never Patient Tobacco Use Status: Never used Tobacco Tobacco use type: Cigarette Cigarettes Per Day: 5 Smoked in Last 30 Days: No e-Cigarette/Vaping Use: Never Used Second Hand Smoke Exposure: No Use of substances other than those prescribed or required for medical reasons: No Advance Directives: No Advance Directives Information Provided: No Nutrition Risks: No Nutritional Risk service: No Meds Allergies Allergy/AdvReac Type Severity Reaction Status Date / Time lisinopril Allergy Severe Cough Verified 02/28/23 19:29 morphine AdvReac Severe Hallucinati Verified 02/28/23 19:29 ons Active Medications: Current Medications Dextrose (D10) 1,000 mls @ 75 mls/hr IVCONT .[id number] CHANDRIKA Last Admin: 02/28/23 19:29 Dose: 75 mls/hr Pharmacy Consult (Consult Rx Perform Med Rec) 1 each MISCELLANE ONCE PRN PRN Reason: Consult order Home Medications Medication Instructions Recorded Confirmed Last Taken Type carvedilol 25 mg tablet 25 mg PO BIDWM 12/17/22 03/01/23 02/12/23 History gabapentin 100 mg capsule 200 mg PO TID PRN Pain 12/17/22 03/01/23 Unknown History insulin degludec 100 unit/mL (3 20 unit subcut DAILY 12/17/22 03/01/23 02/12/23 History mL) subcutaneous pen (Tresiba FlexTouch U-100 insulin) insulin lispro 100 unit/mL 1 sliding scale dose subcut TIDAC 12/17/22 03/01/23 02/12/23 History subcutaneous cartridge (Humalog U-100 Insulin) liraglutide 0.6 mg/0.1 mL (18 mg/3 1.8 mg subcut DAILY 12/17/22 03/01/23 02/12/23 History mL) subcutaneous pen injector (Victoza 3-Delmer) magnesium hydroxide 400 mg/5 mL 400 mg PO DAILY 12/17/22 03/01/23 02/12/23 History oral suspension (Dulcolax (magnesium hydroxide)) spironolactone 25 mg tablet 25 mg PO BID 12/17/22 03/01/23 02/12/23 History acetaminophen 325 mg tablet 650 mg PO Q6H PRN Pain 01/30/23 03/01/23 Unknown History (Tylenol) ezetimibe 10 mg tablet 10 mg PO DAILY 01/30/23 03/01/23 02/12/23 History famotidine 40 mg tablet 40 mg PO BEDTIME 01/30/23 03/01/23 02/12/23 History loratadine-pseudoephedrine ER 10 1 tab PO DAILY PRN Allergy Symptoms 01/30/23 03/01/23 01/29/23 History mg-240 mg tablet,extended [id number] (Claritin-D 24 Hour) Physical Exam Vital Signs and Narrative: Vital Signs: Last Vital Signs Pulse 88 02/28/23 22:31 Resp 24 H 02/28/23 22:31 BP 159/62 H 02/28/23 22:31 Pulse Ox 95 02/28/23 22:31 O2 Del Method Room Air 02/28/23 22:31 BMI result Body Mass Index 25.5 Const: Other: Sleepy but arousable, oriented to self, place but not situation, cannot give me much history General: cooperative and no acute distress Eyes: General: appearance normal, both eyes and all related structures Resp: Effort & Inspection: normal respiratory effort Cardio: Other: Lungs with crackles bilaterally Rate: regular rate Rhythm: regular rhythm GI: Palpation (GI): Soft to palpation Auscultation: normal bowel sounds Skin: General skin exam: no rashes or lesions noted Extrem: General: Yes normal to inspection and Yes no pedal edema Results Labs 02/28/23 19:46 02/28/23 21:10 Labs: Laboratory Results - last 24 hr 02/28/23 02/28/23 02/28/23 19:17 19:46 19:46 MCV 87.7 MCH 28.6 MCHC 32.6 RDW 15.3 Plt Count 124 L D MPV 10.9 Immature Gran % (Auto) 1.0 H Neut % (Auto) 82.5 H Lymph % (Auto) 7.5 L [place] % (Auto) 8.9 Eos % (Auto) 0.0 Baso % (Auto) 0.1 Lymph # (Auto) 1.2 [place] # (Auto) 1.4 H Eos # (Auto) 0.0 Baso # (Auto) 0.0 Abs Immat Gran (auto) 0.16 H Absolute Neuts (auto) 12.7 H Absolute Nucleated RBC 0.000 Nucleated RBC % (auto) 0.0 PT INR APTT VBG pH VBG pCO2 VBG pO2 VBG HCO3 VBG O2 Saturation VBG Base Excess Anion Gap 12 Estim Creat Clear Calc 41.7 Estimated GFR 45 POC Glucose 46 L* Random Glucose 1008 H* Lactic Acid Calcium 8.3 L Magnesium 1.7 Total Bilirubin 1.3 H AST 10 ALT 14 Alkaline Phosphatase 105 Ammonia Total Creatine Kinase Total Protein 5.5 L Albumin 3.4 L COVID-19 ([facility]) COVID-19 Clin Com 02/28/23 02/28/23 02/28/23 19:46 19:46 19:47 MCV MCH MCHC RDW Plt Count MPV Immature Gran % (Auto) Neut % (Auto) Lymph % (Auto) [place] % (Auto) Eos % (Auto) Baso % (Auto) Lymph # (Auto) [place] # (Auto) Eos # (Auto) Baso # (Auto) Abs Immat Gran (auto) Absolute Neuts (auto) Absolute Nucleated RBC Nucleated RBC % (auto) PT 12.8 INR 1.1 APTT 24.2 L VBG pH VBG pCO2 VBG pO2 VBG HCO3 VBG O2 Saturation VBG Base Excess Anion Gap Estim Creat Clear Calc Estimated GFR POC Glucose Random Glucose Lactic Acid 1.3 Calcium Magnesium Total Bilirubin AST ALT Alkaline Phosphatase Ammonia Total Creatine Kinase Total Protein Albumin COVID-19 ([facility]IN) Negative COVID-19 Clin Com See Note 02/28/23 02/28/23 02/28/23 19:59 20:25 20:32 MCV MCH MCHC RDW Plt Count MPV Immature Gran % (Auto) Neut % (Auto) Lymph % (Auto) [place] % (Auto) Eos % (Auto) Baso % (Auto) Lymph # (Auto) [place] # (Auto) Eos # (Auto) Baso # (Auto) Abs Immat Gran (auto) Absolute Neuts (auto) Absolute Nucleated RBC Nucleated RBC % (auto) PT INR APTT VBG pH VBG pCO2 VBG pO2 VBG HCO3 VBG O2 Saturation VBG Base Excess Anion Gap Estim Creat Clear Calc Estimated GFR POC Glucose 67 70 Random Glucose Lactic Acid Calcium Magnesium Total Bilirubin AST ALT Alkaline Phosphatase Ammonia 31 Total Creatine Kinase Total Protein Albumin COVID-19 ([facility]) COVID-19 Clin Com 02/28/23 02/28/23 02/28/23 20:32 20:34 21:03 MCV MCH MCHC RDW Plt Count MPV Immature Gran % (Auto) Neut % (Auto) Lymph % (Auto) [place] % (Auto) Eos % (Auto) Baso % (Auto) Lymph # (Auto) [place] # (Auto) Eos # (Auto) Baso # (Auto) Abs Immat Gran (auto) Absolute Neuts (auto) Absolute Nucleated RBC Nucleated RBC % (auto) PT INR APTT VBG pH 7.54 H VBG pCO2 23 VBG pO2 80 VBG HCO3 20 L VBG O2 Saturation 98.0 VBG Base Excess -0.2 Anion Gap Estim Creat Clear Calc Estimated GFR POC Glucose 77 Random Glucose Lactic Acid Calcium Magnesium Total Bilirubin AST ALT Alkaline Phosphatase Ammonia Total Creatine Kinase 24 L Total Protein Albumin COVID-19 ([facility]) COVID-19 Clin Com 02/28/23 02/28/23 21:10 21:25 MCV MCH MCHC RDW Plt Count MPV Immature Gran % (Auto) Neut % (Auto) Lymph % (Auto) [place] % (Auto) Eos % (Auto) Baso % (Auto) Lymph # (Auto) [place] # (Auto) Eos # (Auto) Baso # (Auto) Abs Immat Gran (auto) Absolute Neuts (auto) Absolute Nucleated RBC Nucleated RBC % (auto) PT INR APTT VBG pH VBG pCO2 VBG pO2 VBG HCO3 VBG O2 Saturation VBG Base Excess Anion Gap 14 Estim Creat Clear Calc 58.2 Estimated GFR > 60 POC Glucose 83 Random Glucose 73 Lactic Acid Calcium 9.1 D Magnesium Total Bilirubin 1.4 H AST 11 ALT 16 Alkaline Phosphatase 104 Ammonia Total Creatine Kinase Total Protein 6.0 L Albumin 3.8 COVID-19 ([facility]) COVID-19 Clin Com Imaging Radiologist's Impressions: Impressions Chest X-Ray 02/28/23 20:25 IMPRESSION: 1. Low lung volumes with bibasilar streaky opacities favored to represent subsegmental atelectasis, less likely aspiration or developing pneumonia. Clinical correlation recommended. 2. Nonspecific gaseous distention of the bowel in the upper abdomen. Assessment and Plan (1) Toxic metabolic encephalopathy: Status: Acute (2) Hypoglycemia: Status: Acute (3) Pneumonia: Status: Acute Plan 67-year-old female with past medical history as mentioned above comes into the hospital with altered mental status found to have multiple abnormalities # acute toxic metabolic encephalopathy - likely secondary to acute infection - will treat with IV antibiotics - follow mentation # hypoglycemia - has been receiving subcu insulin with intake - continue D10 - monitor POC q3h # pneumonia - hospital-acquired versus aspiration - will keep NPO, speech eval - given her recent hospital admission will treat with vanc and Zosyn - follow cultures # chronic pain - continue home analgesics # hypertension - continue amlodipine and spironolactone # chronic osteomyelitis - continue Zyvox 3 completed on 03/15 # acute on chronic hyponatremia - sodium of 129 - IV fluids - follow BMP # history of CAD - continue carvedilol a # diabetes - hold insulin given the hypoglycemia - monitor glucose, if starts normalizing, resume home insulin DVT prophylaxis: Heparin subQ Given the encephalopathy, need for IV antibiotics for the pneumonia patient require minimum 2 nights inpatient hospital stay for further management and jeri toring Time Spent With Patient Time: Total time managing care of this patient today ____ minutes. Quality Stroke Does the patient have a stroke diagnosis?: No VTE Prior VTE?: No VTE Risk Level:: Medical - moderate - high VTE Device Contraindication: Treatment Not Indicated VTE Drug Contraindication: N/A - Med Ordered
[2023-02-28 22:48] VITALS: BP 142/62; PULSE 94; RESP 25; TEMP 37.2; O2SAT 96
--- NOTE | 2023-02-28 23:05 | PC.NURSE ---
verbal order from Dr. Parra, pause D10 to give Zosyn, give D50 prior to stopping. Then resume D10 after zosyn is completed
[2023-02-28 23:06] LABS: Glucose, Whole Blood 102 mg/dL (60-115)
[2023-02-28 23:06] LABS: Glucose, Whole Blood 94 mg/dL (60-115)
[2023-02-28] MEDS: Dextrose 50 % 25 GM/50 ML SYRINGE IVPUSH (23:10)
[2023-02-28] MEDS: Piperacillin Sodium/Tazobactam 3.375 GM in 0.9 % Sodium Chloride 50 ML IV (23:11)
[2023-02-28 23:34] LABS: Appearance Urine Clear; Color Urine Yellow; Glucose Urine UA Negative (Negative); Leukocyte Esterase Urine Negative (Negative); Nitrite Urine Negative (Negative); PH 6.5 (5.0-9.0); Specific Gravity - Urine 1.015 (1.005-1.025); UMIC TRIGGER UACC YES; Urine Blood Trace (Negative); Urine Ketones Negative (Negative); Urine Protein 300 (3+) mg/dL (Neg-Trace)
[2023-02-28 23:52] LABS: Glucose, Whole Blood 203 mg/dL (60-115)
[2023-02-28 23:53] LABS: Glucose, Whole Blood 221 mg/dL (60-115)
[2023-02-28 23:53] LABS: Bacteria Urine None Seen (None Seen); Hyaline Casts Urine 0-2 /LPF (0-2); RBC Urine 0-2 /HPF (0-2); Squamous Epithelial Cell Urine 0-2 /HPF (0-2); WBC Urine 0-5 /HPF (0-5)
[2023-03-01] VITALS (10 sets, daily range): BP systolic 92–157; BP diastolic 43–76; PULSE 48–101; RESP 14–28; TEMP 36.2–36.7; O2SAT 93–98
--- NOTE | 2023-03-01 02:42 | PC.NURSE ---
Dr. Parra notified of BP 92/52.
[2023-03-01] MEDS: Lactated Ringers 1,000 ML 999 ML IV (02:53)
[2023-03-01 03:06] LABS: Glucose, Whole Blood 126 mg/dL (60-115)
--- NOTE | 2023-03-01 03:35 | PC.NURSE ---
Bolus of LR started with improvement in BP noted 112/73, RI 94.
[2023-03-01] MEDS: HYDROmorphone HCl 0.5 MG/0.5 ML SYRINGE IVPUSH (04:06)
--- NOTE | 2023-03-01 04:11 | PC.NURSE ---
Patient medicated with Dilaudid 0.5 mg IV push for pain: grimacing, restlessness, moaning noted. Patient is resting with her eyes closed, RR 23 even, unlabored, even chest wall rising.
[2023-03-01] MEDS: Piperacillin Sodium/Tazobactam 3.375 GM in 0.9 % Sodium Chloride 50 ML IV ×2 (06:38→14:54)
[2023-03-01 06:52] LABS: Glucose, Whole Blood 126 mg/dL (60-115)
[2023-03-01 07:04] LABS: Basophils Percent Auto 0.2 % (0-2); Eosinophils Percent Auto 0.3 % (0-4); Hematocrit 34.2 % (37.0-47.0); Lymphocytes Absolute Auto 1.7 X10*3/uL (1.2-4.9); Monocytes Percent Auto 5.5 % (2-11); PLT CLUMP 1; SCAN SMEAR FLAG 1
[2023-03-01 07:06] LABS: Eosinophils Absolute Auto 0.1 X10*3/uL (0.0-0.4); Imm Gran Pct Auto 1.6 % (0.0-0.4); Lymphocytes Percent Auto 8.5 % (20-40); MANUAL DIFF FLAG SCAN; Mean Corpuscular HGB Conc 35.1 g/dl (31.0-35.0); Mean Corpuscular Hemoglobin 29.1 pg (27.0-33.0); Mean Corpuscular Volume 82.8 fL (80.0-98.0); Monocytes Absolute Auto 1.1 X10*3/uL (0.1-1.2); Neutrophils Absolute Auto 16.2 x10*3/uL (2.0-8.3); Neutrophils Percent Auto 83.9 % (45-73); Red Blood Count 4.13 X10*6/uL (4.20-5.50); Red Cell Distribution Width 14.8 % (11.0-16.0)
[2023-03-01 07:14] LABS: White Blood Count 19.3 X10*3/uL (4.8-10.8)
[2023-03-01 07:31] LABS: Anion Gap 16 (12-20); Blood Urea Nitrogen 17 mg/dL (9-16); Calcium 8.4 mg/dL (8.4-10.2); Carbon Dioxide 18 mmol/L (22-29); Chloride 97 mmol/L (96-108); Creatinine Clr Calc Pharmacy 51.7; Estimated Glomerular Filt Rate 57; Glucose Random 128 mg/dL (60-115); Potassium 3.9 mmol/L (3.3-5.1); Sodium 127 mmol/L (135-145)
--- NOTE | 2023-03-01 07:36 | PHA.MEDREC ---
Pharmacy Consult ? Medication Reconciliation Pharmacy has completed the medication reconciliation. Patient recently discharged, used discharge summary and reviewed med rec done by nursing.
--- NOTE | 2023-03-01 08:03 | PC.NURSE ---
assumed care of this pt at 0700. pt NPO pending swallow screen. PO morning meds held. IV dextrose running. vss stable.
[2023-03-01 08:33] LABS: Platelet Count 106 X10*3/uL (160-400); SLIDE REVIEW VERIFIED
[2023-03-01] MEDS: Dextrose 10 % 1,000 ML 75 ML IVCONT (09:32)
[2023-03-01 11:19] LABS: Glucose, Whole Blood 160 mg/dL (60-115)
--- NOTE | 2023-03-01 11:34 | MHC.EDTECH ---
Tech has been on PT assignment since 299. Patient hasn't voided since the start of this tech's shift. Spoke with the Nurse. Bladder scan was does - 541 ML. RN Notified.
--- NOTE | 2023-03-01 12:30 | PC.NURSE ---
no void since 299, bladder scan greater than 500 cc. straight cath done removing 510 cc. incontinent care and complete bed change done. pt repositioned to R side.
--- NOTE | 2023-03-01 12:49 | MHC.SLORD ---
Speech Language Pathology Order Status: Attempted to see patient for Clinical Swallow, patient is not awake/alert at this time, not appropriate for assessment. CASTING AND CURING OPERATOR will re-eval tomorrow a.m.
--- NOTE | 2023-03-01 13:18 | PC.NURSE ---
zosyn not started at previously scheduled time due to previous dose given late. pharmacy rescheduled time. report given to ANGIE Parish.
--- NOTE | 2023-03-01 13:54 | P.PNIM_ITS ---
Subjective Subjective Date of Service: 03/01/23 Interval History: Seen and evaluated this morning Altered mentation barely opening her eyes and going back to sleep no reported fever Review of Systems Review of Systems: Yes Unobtainable due to mental status Physical Exam Vital Signs: Vital Signs: Last Vital Signs Temp 97.8 F 03/01/23 03:30 Pulse 101 H 03/01/23 12:51 Resp 27 H 03/01/23 12:51 BP 131/60 03/01/23 12:51 Pulse Ox 96 03/01/23 12:51 O2 Del Method Room Air 03/01/23 12:51 BMI result Body Mass Index 25.5 Const: Other: Constitutional : difficult to arouse, does not look in distress Neck : Normal inspection, Supple Cardiovascular : RRR, no JVP, no lower extremity edema Respiratory : fair bilateral air entry, no crackles, wheezes or rhonchi Gastrointestinal: soft, lax, Normal bowel sounds, Non tender Skin : Warm, Dry Neurological : not waking up to asses orientation, No focal deficit moving extremities Objective Data Active Medications Acetaminophen (Acetaminophen 325 Mg Tablet) 650 mg PO Q6H PRN PRN Reason: Pain, Mild (Pain Scale 1-3) Amlodipine Besylate (Amlodipine Besylate 10 Mg Tablet) 10 mg PO DAILY [facility]; Protocol Last Admin: 03/01/23 08:01 Dose: Not Given Documented By: BRONSON Non-Admin Reason: See Note Baclofen (Baclofen 10 Mg Tablet) 10 mg PO BID PRN PRN Reason: muscle spasm Carvedilol (Carvedilol 25 Mg Tablet) 25 mg PO BIDWM [facility]; Protocol Last Admin: 03/01/23 08:00 Dose: Not Given Documented By: BRONSON Non-Admin Reason: See Note Ezetimibe (Ezetimibe 10 Mg Tablet) 10 mg PO DAILY [facility] Last Admin: 03/01/23 08:01 Dose: Not Given Documented By: BRONSON Non-Admin Reason: See Note Famotidine (Famotidine 20 Mg Tablet) 40 mg PO BEDTIME [facility] Heparin Sodium (Porcine) (Heparin Sodium,Porcine 5,000 Unit/Ml Vial) 5,000 unit SUBCUT Q12H [facility] Last Admin: 03/01/23 13:07 Dose: Not Given Documented By: BRONSON Non-Admin Reason: See Note Dextrose (D10) 1,000 mls @ 75 mls/hr IVCONT .[id number] [facility] Last Admin: 03/01/23 09:32 Dose: 75 mls/hr Documented By: BRONSON Piperacillin Sod/Tazobactam (Sod 3.375 gm/ Sodium Chloride) 50 mls @ 100 mls/hr IV Q6H [facility] Linezolid (Linezolid 600 Mg Tablet) 600 mg PO BID [facility] Last Admin: 03/01/23 08:01 Dose: Not Given Documented By: BRONSON Non-Admin Reason: See Note Magnesium Hydroxide (Milk Of Magnesia 30 Ml Oral.Susp) 30 ml PO DAILY [facility] Last Admin: 03/01/23 08:01 Dose: Not Given Documented By: BRONSON Non-Admin Reason: See Note Ondansetron HCl (Ondansetron Hcl 4 Mg/2 Ml Vial) 4 mg IVPUSH Q8H PRN PRN Reason: Nausea and Vomiting Oxycodone HCl (Oxycodone Hcl Immed Release 5 Mg Tablet) 5 mg PO Q8H PRN PRN Reason: Pain, Severe (Pain Scale 7-10) Pharmacy Consult (Consult Rx Perform Med Rec) 1 each MISCELLANE ONCE PRN PRN Reason: Consult order Sodium Chloride (0.9 % Sodium Chloride Flush 3 Ml Syringe) 3 ml IVFLUSH QSHIFT [facility] Last Admin: 03/01/23 08:00 Dose: Not Given Documented By: BRONSON Non-Admin Reason: IV Running Spironolactone (Spironolactone 25 Mg Tablet) 25 mg PO BID [facility]; Protocol Last Admin: 03/01/23 08:01 Dose: Not Given Documented By: BRONSON Non-Admin Reason: See Note Labs 03/01/23 06:47 03/01/23 06:47 Labs: Laboratory Results - last 24 hr 02/28/23 02/28/23 02/28/23 19:17 19:46 19:46 MCV 87.7 MCH 28.6 MCHC 32.6 RDW 15.3 Plt Count 124 L D MPV 10.9 Immature Gran % (Auto) 1.0 H Neut % (Auto) 82.5 H Lymph % (Auto) 7.5 L Republic % (Auto) 8.9 Eos % (Auto) 0.0 Baso % (Auto) 0.1 Lymph # (Auto) 1.2 Republic # (Auto) 1.4 H Eos # (Auto) 0.0 Baso # (Auto) 0.0 Abs Immat Gran (auto) 0.16 H Absolute Neuts (auto) 12.7 H Absolute Nucleated RBC 0.000 Nucleated RBC % (auto) 0.0 Smear Tech's Comments PT INR APTT VBG pH VBG pCO2 VBG pO2 VBG HCO3 VBG O2 Saturation VBG Base Excess Anion Gap 12 Estim Creat Clear Calc 41.7 Estimated GFR 45 POC Glucose 46 L* Random Glucose 1008 H* Lactic Acid Calcium 8.3 L Magnesium 1.7 Total Bilirubin 1.3 H AST 10 ALT 14 Alkaline Phosphatase 105 Ammonia Total Creatine Kinase Total Protein 5.5 L Albumin 3.4 L Urine Color Urine Appearance Urine pH Ur Specific Bena Urine Protein Urine Glucose (UA) Urine Ketones Urine Blood Urine Nitrite Ur Leukocyte Esterase Urine RBC Urine WBC Ur Squamous Epith Cells Urine Bacteria Hyaline Casts COVID-19 (KEVIN) COVID-19 [employer] 02/28/23 02/28/23 02/28/23 19:46 19:46 19:47 MCV MCH MCHC RDW Plt Count MPV Immature Gran % (Auto) Neut % (Auto) Lymph % (Auto) Republic % (Auto) Eos % (Auto) Baso % (Auto) Lymph # (Auto) Republic # (Auto) Eos # (Auto) Baso # (Auto) Abs Immat Gran (auto) Absolute Neuts (auto) Absolute Nucleated RBC Nucleated RBC % (auto) Smear Tech's Comments PT 12.8 INR 1.1 APTT 24.2 L VBG pH VBG pCO2 VBG pO2 VBG HCO3 VBG O2 Saturation VBG Base Excess Anion Gap Estim Creat Clear Calc Estimated GFR POC Glucose Random Glucose Lactic Acid 1.3 Calcium Magnesium Total Bilirubin AST ALT Alkaline Phosphatase Ammonia Total Creatine Kinase Total Protein Albumin Urine Color Urine Appearance Urine pH Ur Specific Ben[place] Urine Protein Urine Glucose (UA) Urine Ketones Urine Blood Urine Nitrite Ur Leukocyte Esterase Urine RBC Urine WBC Ur Squamous Epith Cells Urine Bacteria Hyaline Casts COVID-19 (KEVIN) Negative COVID-19 Clin Com See Note 02/28/23 02/28/23 02/28/23 19:59 20:25 20:32 MCV MCH MCHC RDW Plt Count MPV Immature Gran % (Auto) Neut % (Auto) Lymph % (Auto) Republic % (Auto) Eos % (Auto) Baso % (Auto) Lymph # (Auto) [place] # (Auto) Eos # (Auto) Baso # (Auto) Abs Immat Gran (auto) Absolute Neuts (auto) Absolute Nucleated RBC Nucleated RBC % (auto) Smear Tech's Comments PT INR APTT VBG pH VBG pCO2 VBG pO2 VBG HCO3 VBG O2 Saturation VBG Base Excess Anion Gap Estim Creat Clear Calc Estimated GFR POC Glucose 67 70 Random Glucose Lactic Acid Calcium Magnesium Total Bilirubin AST ALT Alkaline Phosphatase Ammonia 31 Total Creatine Kinase Total Protein Albumin Urine Color Urine Appearance Urine pH Ur Specific Ben[place] Urine Protein Urine Glucose (UA) Urine Ketones Urine Blood Urine Nitrite Ur Leukocyte Esterase Urine RBC Urine WBC Ur Squamous Epith Cells Urine Bacteria Hyaline Casts COVID-19 (KEVIN) COVID-19 [employer] 02/28/23 02/28/23 02/28/23 20:32 20:34 21:03 MCV MCH MCHC RDW Plt Count MPV Immature Gran % (Auto) Neut % (Auto) Lymph % (Auto) Republic % (Auto) Eos % (Auto) Baso % (Auto) Lymph # (Auto) [place] # (Auto) Eos # (Auto) Baso # (Auto) Abs Immat Gran (auto) Absolute Neuts (auto) Absolute Nucleated RBC Nucleated RBC % (auto) Smear Tech's Comments PT INR APTT VBG pH 7.54 H VBG pCO2 23 VBG pO2 80 VBG HCO3 20 L VBG O2 Saturation 98.0 VBG Base Excess -0.2 Anion Gap Estim Creat Clear Calc Estimated GFR POC Glucose 77 Random Glucose Lactic Acid Calcium Magnesium Total Bilirubin AST ALT Alkaline Phosphatase Ammonia Total Creatine Kinase 24 L Total Protein Albumin Urine Color Urine Appearance Urine pH Ur Specific Ben[place] Urine Protein Urine Glucose (UA) Urine Ketones Urine Blood Urine Nitrite Ur Leukocyte Esterase Urine RBC Urine WBC Ur Squamous Epith Cells Urine Bacteria Hyaline Casts COVID-19 (KEVIN) COVID-19 [employer] 02/28/23 02/28/23 02/28/23 21:10 21:25 22:30 MCV MCH MCHC RDW Plt Count MPV Immature Gran % (Auto) Neut % (Auto) Lymph % (Auto) Republic % (Auto) Eos % (Auto) Baso % (Auto) Lymph # (Auto) [place] # (Auto) Eos # (Auto) Baso # (Auto) Abs Immat Gran (auto) Absolute Neuts (auto) Absolute Nucleated RBC Nucleated RBC % (auto) Smear Tech's Comments PT INR APTT VBG pH VBG pCO2 VBG pO2 VBG HCO3 VBG O2 Saturation VBG Base Excess Anion Gap 14 Estim Creat Clear Calc 58.2 Estimated GFR > 60 POC Glucose 83 102 Random Glucose 73 Lactic Acid Calcium 9.1 D Magnesium Total Bilirubin 1.4 H AST 11 ALT 16 Alkaline Phosphatase 104 Ammonia Total Creatine Kinase Total Protein 6.0 L Albumin 3.8 Urine Color Urine Appearance Urine pH Ur Specific Bena Urine Protein Urine Glucose (UA) Urine Ketones Urine Blood Urine Nitrite Ur Leukocyte Esterase Urine RBC Urine WBC Ur Squamous Epith Cells Urine Bacteria Hyaline Casts COVID-19 (KEVIN) COVID-19 [employer] 02/28/23 02/28/23 02/28/23 22:52 22:59 23:40 MCV MCH MCHC RDW Plt Count MPV Immature Gran % (Auto) Neut % (Auto) Lymph % (Auto) Republic % (Auto) Eos % (Auto) Baso % (Auto) Lymph # (Auto) [place] # (Auto) Eos # (Auto) Baso # (Auto) Abs Immat Gran (auto) Absolute Neuts (auto) Absolute Nucleated RBC Nucleated RBC % (auto) Smear Tech's Comments PT INR APTT VBG pH VBG pCO2 VBG pO2 VBG HCO3 VBG O2 Saturation VBG Base Excess Anion Gap Estim Creat Clear Calc Estimated GFR POC Glucose 94 203 H Random Glucose Lactic Acid Calcium Magnesium Total Bilirubin AST ALT Alkaline Phosphatase Ammonia Total Creatine Kinase Total Protein Albumin Urine Color Yellow Urine Appearance Clear Urine pH 6.5 Ur Specific Bena 1.015 Urine Protein 300 (3+) H Urine Glucose (UA) Negative Urine Ketones Negative Urine Blood Trace H Urine Nitrite Negative Ur Leukocyte Esterase Negative Urine RBC 0-2 Urine WBC 0-5 Ur Squamous Epith Cells 0-2 Urine Bacteria None Seen Hyaline Casts 0-2 COVID-19 ([facility]) COVID-19 [employer] 02/28/23 03/01/23 03/01/23 23:49 03:00 06:47 MCV 82.8 MCH 29.1 MCHC 35.1 H RDW 14.8 Plt Count 106 L MPV Not Reportable Immature Gran % (Auto) 1.6 H Neut % (Auto) 83.9 H Lymph % (Auto) 8.5 L Republic % (Auto) 5.5 Eos % (Auto) 0.3 Baso % (Auto) 0.2 Lymph # (Auto) 1.7 Republic # (Auto) 1.1 Eos # (Auto) 0.1 Baso # (Auto) 0.0 Abs Immat Gran (auto) 0.30 H Absolute Neuts (auto) 16.2 H Absolute Nucleated RBC 0.000 Nucleated RBC % (auto) 0.0 Smear Tech's Comments VERIFIED PT INR APTT VBG pH VBG pCO2 VBG pO2 VBG HCO3 VBG O2 Saturation VBG Base Excess Anion Gap Estim Creat Clear Calc Estimated GFR POC Glucose 221 H 126 H Random Glucose Lactic Acid Calcium Magnesium Total Bilirubin AST ALT Alkaline Phosphatase Ammonia Total Creatine Kinase Total Protein Albumin Urine Color Urine Appearance Urine pH Ur Specific Ben[place] Urine Protein Urine Glucose (UA) Urine Ketones Urine Blood Urine Nitrite Ur Leukocyte Esterase Urine RBC Urine WBC Ur Squamous Epith Cells Urine Bacteria Hyaline Casts COVID-19 ([facility]) COVID-19 [employer] 03/01/23 03/01/23 03/01/23 06:47 06:47 11:12 MCV MCH MCHC RDW Plt Count MPV Immature Gran % (Auto) Neut % (Auto) Lymph % (Auto) Republic % (Auto) Eos % (Auto) Baso % (Auto) Lymph # (Auto) [place] # (Auto) Eos # (Auto) Baso # (Auto) Abs Immat Gran (auto) Absolute Neuts (auto) Absolute Nucleated RBC Nucleated RBC % (auto) Smear Tech's Comments PT INR APTT VBG pH VBG pCO2 VBG pO2 VBG HCO3 VBG O2 Saturation VBG Base Excess Anion Gap 16 Estim Creat Clear Calc 51.7 Estimated GFR 57 POC Glucose 126 H 160 H Random Glucose 128 H Lactic Acid Calcium 8.4 D Magnesium Total Bilirubin AST ALT Alkaline Phosphatase Ammonia Total Creatine Kinase Total Protein Albumin Urine Color Urine Appearance Urine pH Ur Specific Ben[place] Urine Protein Urine Glucose (UA) Urine Ketones Urine Blood Urine Nitrite Ur Leukocyte Esterase Urine RBC Urine WBC Ur Squamous Epith Cells Urine Bacteria Hyaline Casts COVID-19 ([facility]) COVID-19 [employer] Com Assessment and Plan (1) Pneumonia: Status: Acute (2) Hypoglycemia: Status: Acute (3) Acute alteration in mental status: Status: Acute Plan 67-year-old female with past medical history as mentioned above comes into the hospital with altered mental status found to have multiple abnormalities # acute toxic metabolic encephalopathy secondary to acute infection Pending cultures Empirical IV antibiotics follow mentation # hypoglycemia in DMII 2/2 Insulin usage change to D5NS monitor POC Hold insulin for now , restart as tolerated check HbA1c # pneumonia hospital-acquired versus aspiration keep NPO, speech eval given her recent hospital admission will treat with vanc and Zosyn follow cultures # chronic pain continue home analgesics # hypertension continue amlodipine and spironolactone # chronic osteomyelitis continue Zyvox to completed on 03/15 # acute on chronic hyponatremia sodium of 127 change IV fluids follow BMP # history of CAD continue carvedilol DVT prophylaxis: Heparin subQ Given the encephalopathy, need for IV antibiotics for the pneumonia patient require minimum 2 nights inpatient hospital stay for further management and monitoring Time Spent With Patient Time: Total time managing care of this patient today ____ minutes. Quality Stroke Does the patient have a stroke diagnosis?: No VTE Prior VTE?: No VTE Risk Level:: Medical - moderate - high VTE Device Contraindication: Treatment Not Indicated VTE Drug Contraindication: N/A - Med Ordered
--- NOTE | 2023-03-01 14:20 | MHC.CM.PN ---
PT RECENTLY DISCHARGED TO [facility] PTS REPORTS SHE WAS EXPOSED TO COVID THERE HE SAYS HE WOULD LIKE HER TO STAY SO SHE CAN BE TESTED IN A FEW DAYS HE REPORTS SHE LIVES AT HOME WITH HIM AND HE ASSISTS HER PRN THEY HAVE A WAITER/WAITRESS INFORMAL THAT COMES IN WEEKLY TO ASSIST WITH HOUSEWORK SHE HAS A WALKER FOR INDOORS AND A WHEEL CHAIR FOR OUTDOORS HCP ON FILE FROM LAST ADMIT PCP: ARVIN TILLMAN IMM DELIVERED DCP: RETURN TO REHAB (PT EVAL WILL BE NEEDED) VS HOME TRANSPORT TBD
[2023-03-01 14:26] LABS: Estimated Average Glucose 157 mg/dL; Hemoglobin A1c % 7.1 %
[2023-03-01 14:49] LABS: Glucose, Whole Blood 124 mg/dL (60-115)
[2023-03-01] MEDS: Dextrose 5 % and 0.9 % NaCl 1,000 ML 100 ML IVCONT (14:54)
[2023-03-01 18:08] LABS: Glucose, Whole Blood 81 mg/dL (60-115)
--- NOTE | 2023-03-01 19:58 | PM.EVENT ---
Event Note Date of Service: 03/01/23 Event Note: Rapid response was called on the pt for becoming unresponsive On my arrival, pt unresponsive, foaming at the mouth, could not find a pulse. Code blue was activated and CPR was started.Pt received 2 round of epinephrine, bicarb, calcium chloride and Difibrilator showed vtach, pt received one shock, No ROSC. Spoke to informing him of the situiation Pt pronounced at 7:57 pm Time Spent With Patient Time: Total time managing care of this patient today ____ minutes.
--- NOTE | 2023-03-01 20:49 | HO.ANESEVENT ---
Anesthesia Event Note Date of Service: 03/01/23 Event Note: at 20 pm code was called for the pt. I intubated pt with ETT 8 without given any hypnotic or paralitic agent atraumatically. mouth suctioned, SaO2 adequate. Time Spent With Patient Time: Total time managing care of this patient today ____ minutes.
[2023-03-01 22:11] LABS: Glucose, Whole Blood 89 mg/dL (60-115)
--- NOTE | 2023-03-02 05:27 | PC.NURSE ---
Pt received 4mg morphine IV push per Dr. Parra for comfort. Dr. Parra wasn't able to enter order for the 4mg morphine IV push. Pt was already discharged. Nursing microbiology supervisor Mandie aware, and i was told to write a note per Mandie.
--- NOTE | 2023-03-02 08:06 | PM.DS ---
DS: Providers Provider Date of Service: 03/02/23 Date of admission: 02/28/23 22:37 Primary care physician: Bethanie Diaz MD Consults: 03/01/23 06:48 Consult to Infectious Diseases Routine Consulting Provider: [facility] Infectious Disease Reason for consultation: Osteomyelitis on linezolid Has provider been notified: No DS: Diagnosis Discharge Diagnosis (1) Pneumonia: Status: Acute (2) Hypoglycemia: Status: Acute (3) Acute alteration in mental status: Status: Acute (4) Acute hyponatremia: Status: Acute DS: Summary Hospital Course Hospital Course: Admission note HPI a 67-year-old female with past medical history of diabetes, osteomyelitis, history of toxic metabolic syndrome recently discharged from our hospital after being treated for encephalopathy in the setting of UTI comes into the hospital from SNF with altered mental status and decreased p.o. intake.? It appears the patient has been not using but the staff at [facility] have continue to give her subcu insulin which has made her hypoglycemic and was found to be hypoglycemic in the 50s in the ED.? Patient was placed on D10 and further workup was obtained.? Patient is very confused, unable to obtain much history from her therefore history is obtained mostly from EMR and ED PA.?On arrival to the ED patient hemodynamically stable. Labs are significant for WBC count of 15.4, with left shift, initial BMP was obtained appears to be completely inaccurate because it showed a s glucose of over 1000 when her POC was 80 on rpt checks, therefore repeat BMP showed a sodium 129, glucose of 73, while on D10, and troponin of 22, CPK of 24, UA negative, Chest x-ray shows infiltrate concerning for pneumonia. Patient will be admitted for further management. Hospital course The patient was admitted for evaluation of acute toxic metabolic encephalopathy believed to be secondary to acute infection given her previous admissions to the hospital with evidence of hospital acquired pneumonia on chest images. started on Empirical IV antibiotics of vancomycin and Zosyn as blood cultures were pending. She was also noted to have hypoglycemia in DMII 2/2 Insulin usage which was held upon admission as the patient was started on D5NS. She was kept NPO pending speech eval at admission for altered mentaiton. CT scan of head was postpone more than once as the patiet kept moving and not sitting still. When she was finally sent to CT scan for the image she was arrested and CPR started. noticed to have Ventricular tachycardia on monitor and received electrecal shock with reported weak pulse at 30 range. her HCP had arrived at that point were she was intubated. He asked to change her to EAP SPECIALIST. The patient around 8:30 pm. Time Spent with Patient Time attestation: Total time managing care of this patient today ____ minutes. Discharge coordination time: Greater than 30 minutes Quality: Safe Use of Opioids Does Pt have an Active Cancer Diagnosis on the Problem List?: No Quality: Stroke Does the patient have a stroke diagnosis?: No Physical Exam Vital Signs: Vital Signs: Last Vital Signs Temp 97.1 F 03/01/23 19:16 Pulse 70 03/01/23 19:16 Resp 16 03/01/23 19:16 BP 145/70 H 03/01/23 19:16 Pulse Ox 93 03/01/23 19:16 O2 Del Method Room Air 03/01/23 19:16 BMI result Body Mass Index 25.5 Const: Other: DS: Data Data Completed and Pending Labs on day of discharge: Laboratory Results - last 24 hr 03/01/23 03/01/23 03/01/23 06:47 06:47 11:12 WBC 19.3 H RBC 4.13 L Hgb 12.0 Hct 34.2 L MCV 82.8 MCH 29.1 MCHC 35.1 H RDW 14.8 Plt Count 106 L Immature Gran % (Auto) 1.6 H Neut % (Auto) 83.9 H Lymph % (Auto) 8.5 L Phillips % (Auto) 5.5 Eos % (Auto) 0.3 Baso % (Auto) 0.2 Lymph # (Auto) 1.7 Phillips # (Auto) 1.1 Eos # (Auto) 0.1 Baso # (Auto) 0.0 Abs Immat Gran (auto) 0.30 H Absolute Neuts (auto) 16.2 H Absolute Nucleated RBC 0.000 Nucleated RBC % (auto) 0.0 Smear Tech's Comments VERIFIED POC Glucose 160 H Estimat Average Glucose 157 Hemoglobin A1c % 7.1 03/01/23 03/01/23 03/01/23 14:45 18:04 19:51 WBC RBC Hgb Hct MCV MCH MCHC RDW Plt Count Immature Gran % (Auto) Neut % (Auto) Lymph % (Auto) Phillips % (Auto) Eos % (Auto) Baso % (Auto) Lymph # (Auto) Phillips # (Auto) Eos # (Auto) Baso # (Auto) Abs Immat Gran (auto) Absolute Neuts (auto) Absolute Nucleated RBC Nucleated RBC % (auto) Smear Tech's Comments POC Glucose 124 H 81 89 Estimat Average Glucose Hemoglobin A1c % Preliminary micro results at discharge 02/28/23 19:45 Blood Culture - Preliminary Blood - Venous No growth after 24 hours. 02/28/23 19:45 Blood Culture - Preliminary Blood - Venous No growth after 24 hours. Imaging Chest x-ray: Radiologist's impression: ITS Impressions Chest X-Ray 02/28/23 20:25 IMPRESSION: 1. Low lung volumes with bibasilar streaky opacities favored to represent subsegmental atelectasis, less likely aspiration or developing pneumonia. Clinical correlation recommended. 2. Nonspecific gaseous distention of the bowel in the upper abdomen. Head CT 03/01/23 21:05 FINDINGS/IMPRESSION: Only a single community service coordinator view was obtained. Nondiagnostic examination. According to technologist note, patient before re-scanned could be performed . Discharge Plan Discharge Date/Time: 03/01/23 20:30 Patient Disposition: Discharge Diagnosis: Referrals: Bethanie Diaz MD [Primary Care Provider] - 1 Week Discharge Medications: No Action prednisone 20 mg Tablet 40 mg PO DAILY Qty: 0 0RF Rx Instructions: plan to taper slowly as directed by PCP amlodipine 10 mg Tablet 10 mg PO DAILY Qty: 0 0RF Protocol: Hold for SBP< HOLD for SBP < : 90 acetaminophen [Tylenol] 325 mg Tablet 650 mg PO Q6H PRN (Reason: Pain) famotidine 40 mg tablet 40 mg PO BEDTIME Claritin-D 24 Hour 10-240 mg Tablet Extended Release 24 Hr 1 tab PO DAILY PRN (Reason: Allergy Symptoms) ezetimibe 10 mg tablet 10 mg PO DAILY linezolid 600 mg Tablet 600 mg PO Q12H Qty: 82 0RF baclofen 10 mg tablet 10 mg PO BID PRN (Reason: muscle spasm) Qty: 10 0RF oxycodone 5 mg tablet 5 mg PO Q8H PRN (Reason: pain) Qty: 10 0RF Rx Instructions: Partial Fill upon patient request. spironolactone 25 mg tablet 25 mg PO BID gabapentin 100 mg capsule 200 mg PO TID PRN (Reason: Pain) Humalog U-100 Insulin 100 unit/mL cartridge 1 sliding scale dose subcut TIDAC magnesium hydroxide [Dulcolax (magnesium hydroxide)] 400 mg/5 mL suspension 400 mg PO DAILY insulin degludec [Tresiba FlexTouch U-100] 100 unit/mL (3 mL) insulin pen 20 unit subcut DAILY carvedilol 25 mg tablet 25 mg PO BIDWM Rx Instructions: must administer with a meal/food Victoza 3-Delmer 0.6 mg/0.1 mL (18 mg/3 mL) pen injector 1.8 mg subcut DAILY Discharge Orders: Discharge Order (Routine); Ordered 03/01/23 Ordered By: Chasity Parra Discharge Date/Time: 03/02/23 00:30
--- NOTE | 2023-03-09 11:33 | PC.NURSE ---
Updated the Discharge Date/time (03/02/23 00:30) on the Discharge plan to match the certificate 03/01/24 1764 so patient (family) will not be billed for an additional night after speaking with Quality
== END 2023-03-01 22:30 | disposition expired | DRG 193 ==
LOC: HO.ED 19:44 → HO.EDOVER 22:53 → HO.S3 03-01 12:03
PROVIDERS: Physician Assistant Medical; Admitting Provider Internal Medicine; Emergency Provider Emergency Medicine; PCP Internal Medicine; Visit Provider Student in an Organized Health Care Education/Training Program
DX: J18.9 Pneumonia, unspecified organism (principal); G92.8 Other toxic encephalopathy; M86.9 Osteomyelitis, unspecified; I47.20 Ventricular tachycardia, unspecified; E11.649 Type 2 diabetes mellitus with hypoglycemia without coma; J69.0 Pneumonitis due to inhalation of food and vomit; G89.29 Other chronic pain; I25.10 Atherosclerotic heart disease of native coronary artery without angina pectoris; E11.69 Type 2 diabetes mellitus with other specified complication; Z51.5 Encounter for palliative care; I46.9 Cardiac arrest, cause unspecified; I10 Essential (primary) hypertension; E78.1 Pure hyperglyceridemia; Z20.822 Contact with and (suspected) exposure to COVID-19; Z79.4 Long term (current) use of insulin; Z79.52 Long term (current) use of systemic steroids; Z79.899 Other long term (current) drug therapy
CPT/HCPCS: 36415; 70450; 71045; 80048; 80053; 81001; 82140; 82550; 82803; 82947; 83036; 83605; 83735; 84484; 85025; 85610; 85730; 87040; 87635; 93005; 94799; 99285; J0171; J0461; J1170; J2543; J3475

== ENCOUNTER → 2023-02-28 19:24 | Outpatient (BNV) | payer MEDICARE, SELFPAY | PROVIDERS: Admitting Provider Internal Medicine; Emergency Provider Emergency Medicine; PCP Internal Medicine; Visit Provider Internal Medicine Cardiovascular Disease | DX: I49.3 Ventricular premature depolarization (principal); R94.31 Abnormal electrocardiogram [ECG] [EKG] | CPT/HCPCS: 93010 ==

== ENCOUNTER → 2023-02-28 22:37 | Outpatient (BNV) | payer MEDICARE, SELFPAY | PROVIDERS: Admitting Provider Internal Medicine; Emergency Provider Emergency Medicine; PCP Internal Medicine; Visit Provider Internal Medicine | DX: J18.9 Pneumonia, unspecified organism (principal); E16.2 Hypoglycemia, unspecified; R41.82 Altered mental status, unspecified; E87.1 Hypo-osmolality and hyponatremia; G92.8 Other toxic encephalopathy | CPT/HCPCS: 99223; 99239; 99499 ==